=== PATIENT | female | born 1940 | race Native Hawaiian/Other Pacific Islander ===

== ENCOUNTER → 2017-08-21 11:24 | Outpatient (REF) | payer MEDICARE, SELFPAY ==
[2017-08-21 13:24] LABS: Microscopic, Urine URINE MICROSCOPIC (MICROSCOPIC)
[2017-08-21 14:02] LABS: Appearance,Urine CLEAR (Clear); Bilirubin,Urine Negative (Negative); Blood, Urine Negative (Negative); Color,Urine ORANGE (Yellow); Glucose,Urine (UA) TRACE (Negative); Ketones,Urine Negative (Negative); Leukocyte Esterase,Urine Negative (Negative); Nitrate,Urine POSITIVE (Negative); PH,Urine 5.5 (5.0-8.5); Protein,Urine 1+ (Negative); Specific Gravity, Urine <= 1.005 (1.005-1.030)
[2017-08-21 14:30] LABS: Bacteria,Urine Trace /lpf; WBC,Urine Occasional #/hpf (0-3)
== END ==
LOC: LAB 11:24
PROVIDERS: Visit Provider Emergency Medicine
DX: R10.9 Unspecified abdominal pain (principal)
CPT/HCPCS: 81001; 87086

== ENCOUNTER 2018-02-20 20:58 | Observation (INO) ==
[2018-02-20 22:14] LABS: Basophils % 0.1 % (0.1-2.0); Eosinophils # 0.2 K/mm3 (0.0-0.4); Eosinophils % 1.5 % (0.1-12.0); Hematocrit 41.9 % (37.0-47.0); Hemoglobin 13.6 g/dL (12.2-16.2); Lymphocytes # 0.6 K/mm3 (0.7-4.5); Lymphocytes % 5.2 K/mm3 (10-50); Mean Corpuscular HGB Conc 32.5 g/dL (31.8-35.4); Mean Corpuscular Hemoglobin 31.1 pg (27.0-31.2); Mean Corpuscular Volume 95.5 fl (81-99); Mean Platelet Volume 7.7 fl (7.4-10.4); Monocytes # 0.3 K/mm3 (0.1-1.0); Monocytes % 2.9 % (1.7-9.3); Neutrophils # 10.4 K/mm3 (1.8-7.8); Neutrophils % 90.3 % (37.0-80.0); Platelet Count 152 K/mm3 (142-424); Red Blood Count 4.39 M/mm3 (4.20-5.40); Red Cell Distribution Width 13.5 % (11.5-17.5); White Blood Count 11.5 K/mm3 (4.8-10.8)
--- NOTE | 2018-02-20 22:28 | Emergency Department Note ---
ED Disposition Clinical Impression: Gastroenteritis A-fib Qualifiers: Atrial fibrillation type: paroxysmal Qualified Code(s): I48.0 - Paroxysmal atrial fibrillation Disposition: Admitted As Inpatient Condition on Discharge: Good Instructions: DI for Acute Abdomen Referrals: Ganesh Fonseca MD [Primary Care Provider] - - Critical Care Critical Care Time: No Attestation: On 02/20/18, the high probability of a clinically significant, sudden or life threatening deterioration of the following system(s) required my full and direct attention, intervention and personal management. The time I documented below is in addition to time spent performing reported procedures but includes the following listed in this critical care notation. Medical Decision Making - Medical Records Medical records reviewed: Yes: I reviewed the patient's medical records. - Saeed Inquiry Pt receiving controlled substance: No Vital Signs: 02/20/18 21:03 02/20/18 22:05 Temperature 98.1 F Temperature Source Oral Pulse Rate [Right] 98 H 142 H Respiratory Rate 20 20 Blood Pressure [Right Arm] 144/74 H 150/91 H Blood Pressure Mean [Right Arm] 97 110 02 Sat by Pulse Oximetry 96 95 - Lab Data Lab results reviewed: Yes: I reviewed the patient's lab results. Lab Results 02/20/18 21:50: WBC 11.5 H, RBC 4.39, Hgb 13.6, Hct 41.9, MCV 95.5, MCH 31.1, MCHC 32.5, RDW 13.5, Plt Count 152, MPV 7.7, Neut % (Auto) 90.3 H, Lymph % (Auto) 5.2 L, Gem % (Auto) 2.9, Eos % (Auto) 1.5, Baso % (Auto) 0.1, Neut # (Auto) 10.4 H, Lymph # (Auto) 0.6 L, Gem # (Auto) 0.3, Eos # (Auto) 0.2, Baso # (Auto) 0.0 02/20/18 21:50: Sodium 140, Potassium 3.6, Chloride 106, Carbon Dioxide 22, Anion Gap 15.6 H, BUN 21 H, Creatinine 0.64, Estimated Creat Clear 40, Estimated GFR 90, Est GFR ( Amer) 109, Glucose 126 H, Calcium 8.3 L, Total Bilirubin 0.7, AST 13 L, ALT 18, Alkaline Phosphatase 74, Troponin I < 0.02, C- Reactive Protein < 0.2, Total Protein 6.7, Albumin 3.6, Globulin 3.1, Albumin/Globulin Ratio 1.2, Amylase 58 Result diagrams: 02/20/18 21:50 02/20/18 21:50 Orders (Tests/Meds): ED MEDICATIONS Generic Name Dose Route Start Last Admin Trade Name Freq PRN Reason Stop Dose Admin Diltiazem HCl 100 mg/ Sodium 100 mls @ 5 mls/hr 02/20/18 21:51 02/20/18 22:05 Chloride IV 03/22/18 21:50 5 mls/hr .Q20H JUJU Administration Protocol Discontinued Medications Generic Name Dose Route Start Last Admin Trade Name Freq PRN Reason Stop Dose Admin Diltiazem HCl 5 mg 02/20/18 21:35 02/20/18 22:05 Cardizem 25mg/5ml Vial IV 02/20/18 21:36 5 mg BOLUS ONE Administration Sodium Chloride 1,000 mls @ 999 mls/hr 02/20/18 21:15 02/20/18 22:04 Sod Chlor 0.9% 1000ml Bag IV 02/20/18 22:15 999 mls/hr .Q1H1M JUJU Administration Ondansetron HCl 4 mg 02/20/18 21:35 02/20/18 22:05 Zofran 4mg/2ml Vial IV 02/20/18 21:36 4 mg ONCE ONE Administration ORDERS Category Date Time Status CT abdomen pelvis wo con Stat Cat Scan 02/20/18 21:11 Taken XR chest 2V Stat Exams 02/20/18 21:11 Taken Complete Blood Count Auto Diff Stat Lab 02/20/18 21:50 Results Erythrocyte Sedimentation Rate Stat Lab 02/20/18 21:50 Results Lactic Acid Stat Lab 02/20/18 21:50 Received Lipase Stat Lab 02/20/18 21:50 Received T4 (Thyroxine) Stat Lab 02/20/18 21:50 Received Thyroid Stimulating Hormone Stat Lab 02/20/18 21:50 Received Urinalysis and Microscopic Stat Lab 02/20/18 21:11 Ordered Blood Culture Stat Micro 02/20/18 22:21 Ordered Blood Culture Stat Micro 02/20/18 22:21 Ordered Blood Culture Stat Micro 02/20/18 22:21 Ordered ECG Request by /Dick Stat Y 02/20/18 21:11 Ordered - Radiology Data #1 Image(s): Chest Image Reviewed: Yes I reviewed the patient's radiology image Preliminary Findings: Normal/NAD - CT Data CT Scan: Abdomen, Pelvis Time Received: 22:[address] Reviewed: Yes: I have viewed the radiologist's interpretation Preliminary Findings: Abnormal (see report ) - ECG Data Tracing #1 I reviewed this ECG and interpreted as documented below: Arrhythmias present: afib Ischemic changes: non-specific ST-T wave changes Nausea/Vomiting/Diarrhea HPI - General Chief complaint: Abdominal Pain Stated complaint: Possible food poison Time Seen by Provider: 02/20/18 21:50 Mode of Arrival: Wheelchair Source of Information: Patient, Spouse, Medical Record Limitations: No Limitations Description of Symptoms (Recalled from ER Triage Doc. by RN): Pt c/o upper abdominal pain, NVD, and left arm pain. - History of Present Illness HPI Narrative: acute onset this afternoon of n/v and diarrhea w/o blood - no fever - she also has inc hr with no known hx of a fib with no syncope MD complaint: nausea, vomiting, abdominal pain Onset (ago): hour(s) Associated Abdominal Pain: Yes Location of pain: diffuse Severity: moderate Associated symptoms: nausea/vomiting - Related Data Home Medications Medication Instructions Recorded Confirmed Lisinopril [Prinivil 10mg Tablet] 10 mg PO DAILY 02/20/18 02/20/18 Montelukast Sodium [Singulair] 10 mg PO QHS 02/20/18 02/20/18 Pravastatin Sodium 10 mg PO HS 02/20/18 02/20/18 Triamcinolone Acetonide [Kenalog 0 gm TOPICAL NEEDED PRN 02/20/18 02/20/18 0.1% cream 30gm tube] Allergies Allergy/AdvReac Type Severity Reaction Status Date / Time No Known Allergies Allergy Verified 08/21/17 11:10 [facility] History I have reviewed the patient's past medical history: Yes Medical History: Reports:: Hypertension Other Surgeries: Yes: Hysterectomy-Total, Other Amputation: No Fractures: No Comment: BLADDER TUCK - Social History Smoking Status: Current every day smoker Tobacco Type: cigarettes # Packs/Day (cigarettes): 1 Alcohol Intake: never Substance Use Type: denies use Occupational Status: student Housing: house Household Members: spouse - Psychiatric History Expresses thoughts of harming self/others: None Suicide Plan Description: No Plan Family Hx:: Hypertension ROS Obtained: Yes All systems reviewed & no additional complaints - Constitutional Constitutional: Denies fever(s) - Eyes Eyes: Denies change in vision - ENT Ears, Nose, Mouth, and Throat: Denies sore throat - Cardiovascular Cardiovascular: Denies chest pain, Reports palpitations - Respiratory Respiratory: No cough - Gastrointestinal Gastrointestingal: Reports: abdominal pain, diarrhea, nausea, vomiting. Denies: bright red blood in stools - Genitourinary Female Genitourinary: Denies hematuria - Musculoskeletal Musculoskeletal: Denies joint pain, Denies neck pain - Integumentary/Breasts Skin/Breast: Denies rash - Neurologic Neurologic: Denies headache(s) Physical Exam - General General appearance: alert, in no apparent distress - Head Head exam: normocephalic - Eye Eye exam: Present: PERRL, EOMI - ENT ENT exam: Present: mucous membranes moist - Neck Neck exam: Present: trachea midline - Respiratory Respiratory exam: Present: normal lung sounds bilaterally. Absent: respiratory distress - Cardiovascular Cardiovascular exam: Present: tachycardia, irregular rhythm - Abdominal Exam Abdominal exam: Present: soft. Absent: tenderness - Extremities Exam Extremities exam: Absent: calf tenderness - Neurological Exam Neurological exam: Present: alert, oriented X3, CN II-XII intact - Psychiatric Psychiatric exam: Present: normal affect - Skin Skin exam: Absent: rash
[2018-02-20 22:29] LABS: Alanine Aminotransferase 18 U/L (12-78); Albumin Level 3.6 gm/dL (3.4-5.0); Albumin/Globulin Ratio 1.2 (1.1-1.8); Alkaline Phosphatase 74 U/L (46-116); Amylase 58 U/L (25-125); Anion Gap 15.6 mEq/L (5-15); Aspartate Amino Transferase 13 U/L (15-37); Bilirubin,Total 0.7 mg/dL (0.2-1.0); Blood Urea Nitrogen 21 mg/dL (7-18); Calcium 8.3 mg/dL (8.5-10.1); Carbon Dioxide 22 mmol/L (21.0-32.0); Chloride 106 mmol/L (98-107); Globulin 3.1 gm/dl (1.3-3.2); Glucose 126 mg/dL (74-106); Potassium 3.6 mmoL/L (3.5-5.1); Sodium 140 mmol/L (136-145); Total Protein,Serum 6.7 gm/dL (6.4-8.2)
[2018-02-20 22:36] LABS: C-Reactive Protein < 0.2 mg/L (0.0-0.9)
[2018-02-20 22:48] LABS: Anisocytosis 1+; Lymphocytes % 5 % (10-50); Neutrophils % 95 % (42-76); Total Cells Counted 100
[2018-02-20 22:49] LABS: Stomatocytes 1+
[2018-02-20 23:01] LABS: Erythrocyte Sedimentation Rate 15 mm/hr (0-30)
[2018-02-20 23:27] LABS: T4 (Thyroxine) 8.2 ug/dl (4.7-13.3); Thyroid Stimulating Hormone 0.63 uIU/ml (0.358-3.740)
[2018-02-21 05:17] LABS: Basophils % 0.2 % (0.1-2.0); Eosinophils % 0.7 % (0.1-12.0); Hematocrit 36.7 % (37.0-47.0); Lymphocytes # 0.9 K/mm3 (0.7-4.5); Lymphocytes % 14.9 K/mm3 (10-50); Mean Corpuscular HGB Conc 32.2 g/dL (31.8-35.4); Mean Corpuscular Hemoglobin 30.7 pg (27.0-31.2); Mean Corpuscular Volume 95.2 fl (81-99); Mean Platelet Volume 8.1 fl (7.4-10.4); Monocytes # 0.3 K/mm3 (0.1-1.0); Monocytes % 4.6 % (1.7-9.3); Neutrophils # 4.8 K/mm3 (1.8-7.8); Neutrophils % 79.5 % (37.0-80.0); Platelet Count 173 K/mm3 (142-424); Red Blood Count 3.86 M/mm3 (4.20-5.40); Red Cell Distribution Width 13.6 % (11.5-17.5)
[2018-02-21 05:22] LABS: Anion Gap 12.6 mEq/L (5-15); Calcium 7.9 mg/dL (8.5-10.1); Potassium 3.6 mmoL/L (3.5-5.1)
--- NOTE | 2018-02-21 09:31 | Consult Report ---
History of Present Illness Consult date: 02/21/18 Requesting physician: Ganesh Fonseca Consult reason: atrial fibrillation Chief complaint: Nausea and vomiting Additional Medical History:: 1. New onset of Paroxysmal Atrial Fibrillation (02/21/18) a. Rapid ventricular response of 155-160bpm. b. Converted over to Sinus rhythm with Diltiazem. 2. Gastroenteritis (02/21/18) a. Possible food poisoning b. Nausea and vomiting for 12 hours prior to admission 3. Essential hypertension. a. Well controlled on lisinopril 4. Hyperlipidemia a. No recent LDL on file. b. Currently on pravastatin daily and managed by PCP. 5. Tobacco abuse a. Smokes 1 pack/day over the past 30 years. 6. No significant family history of coronary artery disease History of present illness: 77-year-old English female admitted to [facility] for abdominal pain, vomiting and diarrhea for the past 12 hours. Patient stated after eating muscles at a restaurant, she started developing mid to lower abdominal pain accompanied with nausea. States throughout the day her vomiting and abdominal pain became worse, so she presented in the emergency room. While being evaluated in the emergency room, patient was noted to be an atrial fibrillation with rapid ventricular response with premature ventricular complexes with a heart rate of 155 and 160 bpm. This was a new onset of atrial fibrillation. Patient denied chest pain or shortness of breath with this episode of atrial fib. Patient was placed on diltiazem drip due to the atrial fibrillation with rapid ventricular response. After being on the diltiazem drip, patient converted over into a sinus rhythm with a heart rate of 70-80 bpm. Patient was then admitted to second floor for observation and cardiac consult. Patient remains in sinus rhythm with a heart rate of 63bpm. Denies chest pain, shortness of breath or palpitations. Patient denies any history of coronary artery disease, atrial fibrillation or any other cardiac issues. Patient did state that she has history of hypertension and hyperlipidemia. Patient admits to smoking 1 pack/day and has for over 30 years. Patient denies any significant family history of cardiac disease. States father of carotid stenosis in his early 90s and her mother from appendicitis at a young age. Patient states she is unable to take aspirin due to issues with her stomach. Initial lab work in the emergency room revealed, BUN 21 and creatinine of 0.64. Serial cardiac enzymes were performed with the first troponin being 0.02, 0.06 then 3rd troponin being 0.16. Chest x-ray revealed: FINDINGS: Mild cardiomegaly without failure. Chronic changes are present in the lower lobes. No lobar consolidation or collapse. Degenerative change thoracic spine. Nodularity noted in the left hilum probably related to overlapping vessel slightly more prominent from previous exams. Continued follow-up recommended to confirm stability. IMPRESSION: Cardiomegaly with chronic change Minimal nodularity left hilum which may be due to overlying vessel. Recommend follow-up radiograph in 4-8 weeks to confirm short-term stability Patient also had an abdominal CT due to a abdominal pain: FINDINGS: Lung base images show bibasilar atelectatic and/or fibrotic change. There is mild cardiomegaly. The liver, gallbladder, spleen, adrenal glands, pancreas, and kidneys show no acute finding. No evidence of intestinal obstruction, free air, or diverticulitis. There are fluid-filled loops of small and large bowel nonspecific without distention. There is diverticulosis of the sigmoid colon. 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 No aortic aneurysm or leak apparent. No pelvic mass or abnormal fluid collection or focal inflammatory change of the pelvis. There has been prior hysterectomy. No acute bony findings. IMPRESSION: No acute abdominal or pelvic findings. Echocardiogram was performed. Preliminary report reveals: Moderate MR and EF greater than 55%. Upon this evaluation, patient is alert and oriented appropriately x3. Denies chest pain, shortness of breath, palpitations or nausea vomiting. Patient states she is feeling much better. Vital signs are stable. monitor car operator reveals sinus rhythm with a heart rate of 63 bpm. Patient is very anxious to get home. States she would rather have any testing on an outpatient basis because she just wants to go home. Discussed with patient to have further cardiac testing performed on outpatient basis. Patient was agreeable to have GXT Myoview and follow-up with cardiac clinic within 1 week. This case was discussed with Dr. Villela and Dr. Fonseca. [facility] History Medical History: Reports:: Hyperlipidemia, Hypertension Other Surgeries: Yes: Hysterectomy-Total, Other Amputation: No Fractures: No - *Social History Smoking Status: Current every day smoker Tobacco Type: cigarettes # Packs/Day (cigarettes): 1 Alcohol Intake: never Substance Use Type: denies use Occupational Status: student Housing: house Household Members: spouse - Psychiatric History Expresses thoughts of harming self/others: None Suicide Plan Description: No Plan *Family Hx:: Hypertension Meds Home Medications Medication Instructions Recorded Confirmed Type Lisinopril [Prinivil 10mg Tablet] 10 mg PO DAILY 02/20/18 02/20/18 History Pravastatin Sodium 10 mg PO HS 02/20/18 02/20/18 History Triamcinolone Acetonide [Kenalog 1 gm TOPICAL NEEDED PRN 02/20/18 02/21/18 History 0.1% cream 30gm tube] Allergies Allergy/AdvReac Type Severity Reaction Status Date / Time No Known Allergies Allergy Verified 08/21/17 11:10 Review of Systems - Review of Systems Review of systems:: pertinent systems reviewed and negative unless documented below - Constitutional Reports fatigue - *Cardiovascular Reports irregular heart rhythm, Denies chest pain, Denies chest pain at rest, Denies chest pain with activity, Denies leg pain with activity, Denies shortness of breath, Denies shortness of breath with activity, Denies generalized swelling - *Respiratory Denies cough, Denies shortness of breath, Denies shortness of breath with activity, Denies wheezing - *Gastrointestinal Reports abdominal pain, Reports nausea, Reports vomiting - *Musculoskeletal Denies abnormal walking, Denies muscle weakness - Integumentary/Breasts Denies acne, Denies hair loss, Denies bleeding lesions - *Neurologic Denies dizziness, Denies headache(s), Denies dizziness, Denies weakness Exam Vital signs and Labs for Last 24 Hours: Temp Pulse Resp BP Pulse Ox 98.5 F 63 18 96/46 L 93 L 02/21/18 07:34 02/21/18 07:34 02/21/18 07:34 02/21/18 07:34 02/21/18 07:34 Laboratory Results - last 24 hr 02/20/18 21:50: WBC 11.5 H, RBC 4.39, Hgb 13.6, Hct 41.9, MCV 95.5, MCH 31.1, MCHC 32.5, RDW 13.5, Plt Count 152, MPV 7.7, Neut % (Auto) 90.3 H, Lymph % (Auto) 5.2 L, [place] % (Auto) 2.9, Eos % (Auto) 1.5, Baso % (Auto) 0.1, Neut # (Auto) 10.4 H, Lymph # (Auto) 0.6 L, [place] # (Auto) 0.3, Eos # (Auto) 0.2, Baso # (Auto) 0.0, Total Counted 100, Neutrophils % (Manual) 95 H, Lymphocytes % (Manual) 5 L, Platelet Estimate Normal, Anisocytosis 1+, Stomatocytes 1+, ESR 15 02/20/18 21:50: Sodium 140, Potassium 3.6, Chloride 106, Carbon Dioxide 22, Anion Gap 15.6 H, BUN 21 H, Creatinine 0.64, Estimated Creat Clear 40, Estimated GFR 90, Est GFR ( Amer) 109, Glucose 126 H, Calcium 8.3 L, Total Bilirubin 0.7, AST 13 L, ALT 18, Alkaline Phosphatase 74, Troponin I < 0.02, C- Reactive Protein < 0.2, Total Protein 6.7, Albumin 3.6, Globulin 3.1, Albumin/Globulin Ratio 1.2, Amylase 58 02/20/18 21:50: Lactate 1.1 02/20/18 21:50: Lipase 70 L, TSH 0.63, Thyroxine (T4) 8.2 02/21/18 01:42: Troponin I 0.06 02/21/18 05:00: Troponin I 0.16 H 02/21/18 05:00: WBC 6.0 D, RBC 3.86 L, Hgb 12.0 L D, Hct 36.7 L, MCV 95.2, MCH 30.7, MCHC 32.2, RDW 13.6, Plt Count 173, MPV 8.1, Neut % (Auto) 79.5, Lymph % (Auto) 14.9, [place] % (Auto) 4.6, Eos % (Auto) 0.7, Baso % (Auto) 0.2, Neut # (Auto) 4.8, Lymph # (Auto) 0.9, [place] # (Auto) 0.3, Eos # (Auto) 0.0, Baso # (Au to) 0.0 02/21/18 05:00: Sodium 141, Potassium 3.6, Chloride 108 H, Carbon Dioxide 24, Anion Gap 12.6, BUN 21 H, Creatinine 0.61, Estimated Creat Clear 40, Estimated GFR 95, Est GFR ( Amer) 115, Glucose 102, Calcium 7.9 L I & O for Last 24 hours: Intake & Output 02/18/18 02/19/18 02/20/18 02/21/18 23:59 23:59 23:59 23:59 Intake Total 50 50 522 / 522 Balance 522 / 522 Weight 120 lb 8 oz - Constitutional no acute distress, average body habitus - *Routine HEENT Exam Head: Present: normocephalic. Absent: Medrano's sign, facial swelling Eye: Present: EOMI ENT: Present: mucous membranes moist - *Routine Neck Exam Present: supple, full ROM, normal carotid upstroke, trachea midline. Absent: JVD, carotid bruit, lymphadenopathy - Routine Chest/Breast/Axilla Exam Chest wall: Absent: tenderness, mass - *Routine Respiratory Exam Present: accessory muscle use, CTA bilaterally. Absent: wheezes, distant breath sounds - *Routine Cardiovascular Exam Present: RRR, Normal S1, Normal S2. Absent: murmur, gallop, rubs, click, bradycardia, tachycardia, JVD - *Routine Abdominal Exam Present: soft, normoactive bowel sounds. Absent: tenderness, distended, rebound, bruit - *Routine Extremities Exam Present: full ROM, pulses intact, normal capillary refill. Absent: cyanosis, clubbing, edema - Routine Back/Spine/Pelvis Exam Back/Spine: Present: full ROM. Absent: CVA tenderness - *Routine Skin Exam Present: intact, warm, normal turgor. Absent: cyanosis, erythema, dry, lesions - *Routine Neurological Exam Present: alert, oriented X3, CN II-XII intact, moving all extremities, normal tone, normal speech. Absent: tremors Assessment and Plan (1) A-fib Current visit: Yes Status: Acute Qualifiers: Atrial fibrillation type: paroxysmal Qualified Code(s): I48.0 - Paroxysmal atrial fibrillation Category: Medical Code(s): I48.91 - Unspecified atrial fibrillation (2) Gastroenteritis Current visit: Yes Status: Acute Category: Medical Code(s): K52.9 - Noninfective gastroenteritis and colitis, unspecified (3) Essential hypertension Current visit: No Status: Chronic Category: Medical Code(s): I10 - Essential (primary) hypertension (4) Hyperlipidemia Current visit: Yes Status: Acute Category: Medical Code(s): E78.5 - Hyperlipidemia, unspecified (5) Tobacco abuse Current visit: Yes Status: Acute Category: Medical Code(s): Z72.0 - Tobacco use - Assessment and plan all Dx Assessment and Plan for all problems:: Plan: 1. Obtain echocardiogram to assess LV function and valve status. 2. Obtain Lexiscan Myoview on outpatient basis due to new onset of atrial fibrillation and tobacco abuse. 3. Tobacco cessation advised and recommended. 4. Continue current home medications. 5. Recommend aspirin 81 mg daily if patient can tolerate. 6. Will defer any medication changes until after Lexiscan Myoview performed. 7. Follow-up in cardiac clinic in 1 week for further cardiac evaluation.
--- NOTE | 2018-02-22 13:20 | H&P/Discharge Summary ---
General - General Admission date:: 02/20/18 Discharge date: 02/21/18 *Admission Date: 02/20/18 *Chief complaint: heart arrthymia *History of present illness: this pt had upper ugi with vomiting and loose stool but no fever or vomiting - pt also presents with fast hr with a fib - she has had fast hr in past but no doc a fib- no chest pain or syncope and no cva sx - pt placed on cardizem drip and admitted [facility] History I have reviewed the patient's past medical history: Yes Medical History: Reports:: Hyperlipidemia, Hypertension Other Surgeries: Yes: Hysterectomy-Total, Other Amputation: No Fractures: No - *Social History Smoking Status: Current every day smoker Tobacco Type: cigarettes # Packs/Day (cigarettes): 1 Alcohol Intake: never Substance Use Type: denies use Occupational Status: student Housing: house Household Members: spouse - Psychiatric History Expresses thoughts of harming self/others: None Suicide Plan Description: No Plan *Family Hx:: Hypertension Review of Systems - Review of Systems Review of systems:: pertinent systems reviewed and negative unless documented below - Constitutional Denies fever(s) - Eyes Denies discharge - ENT Denies neck pain - *Cardiovascular Reports irregular heart rhythm, Reports rapid, pounding, or irregular heartbeat, Reports fast heart rate, Denies chest pain at rest - *Respiratory Denies cough - *Gastrointestinal Denies abdominal pain - *Genitourinary Denies blood in urine - *Musculoskeletal Denies joint pain - Integumentary/Breasts Denies rash - *Neurologic Denies abnormal walking, Denies dizziness, Denies headache(s), Denies dizziness, Denies weakness - Psychiatric Reports anxiety Exam Vital signs and Labs for Last 24 Hours: Temp Pulse Resp BP Pulse Ox 98.8 F 73 18 154/87 H 94 L 02/21/18 11:37 02/21/18 11:37 02/21/18 11:37 02/21/18 11:37 02/21/18 11:37 Laboratory Results - last 24 hr 02/20/18 21:50: WBC 11.5 H, RBC 4.39, Hgb 13.6, Hct 41.9, MCV 95.5, MCH 31.1, MCHC 32.5, RDW 13.5, Plt Count 152, MPV 7.7, Neut % (Auto) 90.3 H, Lymph % (Auto) 5.2 L, [place]own[place] % (Auto) 2.9, Eos % (Auto) 1.5, Baso % (Auto) 0.1, Neut # (Auto) 10.4 H, Lymph # (Auto) 0.6 L, Lown[place] # (Auto) 0.3, Eos # (Auto) 0.2, Baso # (Auto) 0.0, Total Counted 100, Neutrophils % (Manual) 95 H, Lymphocytes % (Manual) 5 L, Platelet Estimate Normal, Anisocytosis 1+, Stomatocytes 1+, ESR 15 02/20/18 21:50: Sodium 140, Potassium 3.6, Chloride 106, Carbon Dioxide 22, Anion Gap 15.6 H, BUN 21 H, Creatinine 0.64, Estimated Creat Clear 40, Estimated GFR 90, Est GFR ( Amer) 109, Glucose 126 H, Calcium 8.3 L, Total Bilirubin 0.7, AST 13 L, ALT 18, Alkaline Phosphatase 74, Troponin I < 0.02, C- Reactive Protein < 0.2, Total Protein 6.7, Albumin 3.6, Globulin 3.1, Albumin/Globulin Ratio 1.2, Amylase 58 02/20/18 21:50: Lactate 1.1 02/20/18 21:50: Lipase 70 L, TSH 0.63, Thyroxine (T4) 8.2 02/21/18 01:42: Troponin I 0.06 02/21/18 05:00: Troponin I 0.16 H 02/21/18 05:00: WBC 6.0 D, RBC 3.86 L, Hgb 12.0 L D, Hct 36.7 L, MCV 95.2, MCH 30.7, MCHC 32.2, RDW 13.6, Plt Count 173, MPV 8.1, Neut % (Auto) 79.5, Lymph % (Auto) 14.9, Lowndes % (Auto) 4.6, Eos % (Auto) 0.7, Baso % (Auto) 0.2, Neut # (Auto) 4.8, Lymph # (Auto) 0.9, Lowndes # (Auto) 0.3, Eos # (Auto) 0.0, Baso # (Auto) 0.0 02/21/18 05:00: Sodium 141, Potassium 3.6, Chloride 108 H, Carbon Dioxide 24, Anion Gap 12.6, BUN 21 H, Creatinine 0.61, Estimated Creat Clear 40, Estimated GFR 95, Est GFR ( Amer) 115, Glucose 102, Calcium 7.9 L I & O for Last 24 hours: Intake & Output 02/19/18 02/20/18 02/21/18 02/22/18 11:59 11:59 11:59 11:59 Intake Total 572 / 572 Balance 572 / 572 Weight 120 lb 8 oz - Constitutional no acute distress - *Routine HEENT Exam Head: Present: normocephalic, atraumatic Eye: Present: EOMI, PERRL ENT: Present: mucous membranes dry - *Routine Neck Exam Present: supple. Absent: JVD, carotid bruit - *Routine Respiratory Exam Present: CTA bilaterally - *Routine Cardiovascular Exam Present: RRR, murmur, S4 - *Routine Abdominal Exam Present: soft - *Routine Extremities Exam Absent: calf tenderness - *Routine Skin Exam Present: intact - *Routine Neurological Exam Present: alert, oriented X3, CN II-XII intact - Routine Psychiatric Exam Present: normal affect Hospital Course Hospital Course: pt with conversion and remained stable and no chest pain and gi improved - she was seen by card -7-year-old [place] female admitted to [facility] for abdominal pain, vomiting and diarrhea for the past 12 hours. Patient stated after eating muscles at a restaurant, she started developing mid to lower abdominal pain accompanied with nausea. States throughout the day her vomiting and abdominal pain became worse, so she presented in the emergency room. While being evaluated in the emergency room, patient was noted to be an atrial fibrillation with rapid ventricular response with premature ventricular complexes with a heart rate of 155 and 160 bpm. This was a new onset of atrial fibrillation. Patient denied chest pain or shortness of breath with this episode of atrial fib. Patient was placed on diltiazem drip due to the atrial fibrillation with rapid ventricular response. After being on the diltiazem drip, patient converted over into a sinus rhythm with a heart rate of 70-80 bpm. Patient was then admitted to second floor for observation and cardiac consult. Patient remains in sinus rhythm with a heart rate of 63bpm. Denies chest pain, shortness of breath or palpitations. Patient denies any history of coronary artery disease, atrial fibrillation or any other cardiac issues. Patient did state that she has history of hypertension and hyperlipidemia. Patient admits to smoking 1 pack/day and has for over 30 years. Patient denies any significant family history of cardiac disease. States father of carotid stenosis in his early 90s and her mother from appendiciti onset of Paroxysmal Atrial Fibrillation (02/21/18) a. Rapid ventricular response of 155-160bpm. b. Converted over to Sinus rhythm with Diltiazem. 2. Gastroenteritis (02/21/18) a. Possible food poisoning b. Nausea and vomiting for 12 hours prior to admission 3. Essential hypertension. a. Well controlled on lisinopril 4. Hyperlipidemia a. No recent LDL on file. b. Currently on pravastatin daily and managed by PCP. 5. Tobacco abuse a. Smokes 1 pack/day over the past 30 years. 6. No significant family history of coronary artery diseass at a young age. Patient states she is unable to take aspirin due to issues with her stomach. will do gxt as op and do holter and follow up in clinic and office Obtain echocardiogram to assess LV function and valve status. 2. Obtain Lexiscan Myoview on outpatient basis due to new onset of atrial fibrillation and tobacco abuse. 3. Tobacco cessation advised and recommended. 4. Continue current home medications. 5. Recommend aspirin 81 mg daily if patient can tolerate. 6. Will defer any medication changes until after Lexiscan Myoview performed. 7. Follow-up in cardiac clinic in 1 week for further cardiac evaluation. Results Labs on day of discharge: Labs from last 24 hours 02/21/18 02/21/18 02/21/18 05:00 05:00 05:00 WBC 6.0 D RBC 3.86 L Hgb 12.0 L D Hct 36.7 L MCV 95.2 MCH 30.7 MCHC 32.2 RDW 13.6 Plt Count 173 MPV 8.1 Neut % (Auto) 79.5 Lymph % (Auto) 14.9 Lowndes % (Auto) 4.6 Eos % (Auto) 0.7 Baso % (Auto) 0.2 Neut # (Auto) 4.8 Lymph # (Auto) 0.9 Lowndes # (Auto) 0.3 Eos # (Auto) 0.0 Baso # (Auto) 0.0 Total Counted Neutrophils % (Manual) Lymphocytes % (Manual) Platelet Estimate Anisocytosis Stomatocytes ESR Sodium 141 Potassium 3.6 Chloride 108 H Carbon Dioxide 24 Anion Gap 12.6 BUN 21 H Creatinine 0.61 Estimated Creat Clear 40 Estimated GFR 95 Est GFR ( Amer) 115 Glucose 102 Lactate Calcium 7.9 L Total Bilirubin AST ALT Alkaline Phosphatase Troponin I 0.16 H C-Reactive Protein Total Protein Albumin Globulin Albumin/Globulin Ratio Amylase Lipase TSH Thyroxine (T4) 02/21/18 02/20/18 02/20/18 01:42 21:50 21:50 WBC RBC Hgb Hct MCV MCH MCHC RDW Plt Count MPV Neut % (Auto) Lymph % (Auto) Lowndes % (Auto) Eos % (Auto) Baso % (Auto) Neut # (Auto) Lymph # (Auto) Lown[place] # (Auto) Eos # (Auto) Baso # (Auto) Total Counted Neutrophils % (Manual) Lymphocytes % (Manual) Platelet Estimate Anisocytosis Stomatocytes ESR Sodium Potassium Chloride Carbon Dioxide Anion Gap BUN Creatinine Estimated Creat Clear Estimated GFR Est GFR ( Amer) Glucose Lactate 1.1 Calcium Total Bilirubin AST ALT Alkaline Phosphatase Troponin I 0.06 C-Reactive Protein Total Protein Albumin Globulin Albumin/Globulin Ratio Amylase Lipase 70 L TSH 0.63 Thyroxine (T4) 8.2 02/20/18 02/20/18 21:50 21:50 WBC 11.5 H RBC 4.39 Hgb 13.6 Hct 41.9 MCV 95.5 MCH 31.1 MCHC 32.5 RDW 13.5 Plt Count 152 MPV 7.7 Neut % (Auto) 90.3 H Lymph % (Auto) 5.2 L Lown[place] % (Auto) 2.9 Eos % (Auto) 1.5 Baso % (Auto) 0.1 Neut # (Auto) 10.4 H Lymph # (Auto) 0.6 L [place] # (Auto) 0.3 Eos # (Auto) 0.2 Baso # (Auto) 0.0 Total Counted 100 Neutrophils % (Manual) 95 H Lymphocytes % (Manual) 5 L Platelet Estimate Normal Anisocytosis 1+ Stomatocytes 1+ ESR 15 Sodium 140 Potassium 3.6 Chloride 106 Carbon Dioxide 22 Anion Gap 15.6 H BUN 21 H Creatinine 0.64 Estimated Creat Clear 40 Estimated GFR 90 Est GFR ( Amer) 109 Glucose 126 H Lactate Calcium 8.3 L Total Bilirubin 0.7 AST 13 L ALT 18 Alkaline Phosphatase 74 Troponin I < 0.02 C-Reactive Protein < 0.2 Total Protein 6.7 Albumin 3.6 Globulin 3.1 Albumin/Globulin Ratio 1.2 Amylase 58 Lipase TSH Thyroxine (T4) DS: Diagnosis - Discharge Diagnosis (1) A-fib Status: Acute (2) Gastroenteritis Status: Acute (3) Essential hypertension Status: Chronic (4) Hyperlipidemia Status: Acute (5) Tobacco abuse Status: Acute (6) Elevated troponin Status: Acute Discharge Medications - Medications for Discharge Home Medication List at Discharge: Continue Triamcinolone Acetonide [Kenalog 0.1% cream 30gm tube] 1 gm TOPICAL NEEDED PRN PRN Reason: Allergies Pravastatin Sodium 10 mg PO HS Lisinopril [Prinivil 10mg Tablet] 10 mg PO DAILY
--- NOTE | 2018-02-22 15:23 | Cardiology Report ---
PROCEDURE: 2-D M-mode and color Doppler study INDICATIONS FOR THE TEST: Chest pain COPD Heart Murmur Tobacco Smoking+ Palpitations Fatigue Syncope Edema Hypertension+Diabetes Mellitus Rheumatic Fever SOB ISLAS Obesity Hyperlipidemia+ Family History HD Additional History A FIB PATIENT INFORMATION HEIGHT: 61 WEIGHT:120 GENDER: Female B/P:150/91 2-D/M-MODE INTERPRETATION: 2-D MEASUREMENTS OBSERVED VALUES IN CMS Right Ventricular Dimension (RVDd) 2.6 Interventricular Septum (Thickness)(IVsd) 1.4 Left Ventricular Internal Dimensions(LVIDd) 3.9 Left Ventricular Posterior Wall (Thickness)(LVPWd) 0.9 Aortic Root 3.3 Aortic Cusp Separation 2.1 Left Atrial Dimensions (LAD) 3.6 2D 1. Left atrium is mildly enlarged, left ventricle is normal size, mild concentric left ventricular hypertrophy seen, visually estimated ejection fraction 55% with no regional wall motion abnormality. 2. The right atrium and ventricle are normal size and contractility. 3. The aortic valve is minimally thickened and calcified. 4. The mitral and tricuspid valve leaflets are minimally thickened. 5. The pulmonic valve is poorly visualized. 6. No significant pericardial effusion noted. DOPPLER INTERROGATION: Doppler interrogation of the aortic, mitral and tricuspid valvular presence of mild mitral and tricuspid regurgitation, tricuspid regurgitation jet velocity is inadequate for calculation of the right ventricular systolic pressure, grade 1 diastolic dysfunction seen with tissue Doppler evidence of raised left atrial pressure. CONCLUSION: 1. Mildly enlarged left atrium, normal left ventricular size, mild concentric left ventricular hypertrophy, visually estimated ejection fraction 55% with no regional wall motion abnormality, grade 1 diastolic dysfunction seen with tissue Doppler evidence of raised left atrial pressure. 2. Mild mitral and tricuspid regurgitation 3. No significant pericardial effusion noted.
== END 2018-02-21 14:20 | disposition home or self-care (01) ==
LOC: ER 20:58 → 2ND 22:46 → INTOOBSV 23:20 → 2ND 23:25
PROVIDERS: ADMIT Emergency Medicine; ATTEND Emergency Medicine

== ENCOUNTER → 2018-02-23 10:39 | Outpatient (CLI) | payer MEDICARE, BC, SELFPAY ==
--- NOTE | 2018-02-23 10:41 | NM_ITS ---
History and Indications: Hypertension, hyperlipidemia. Tobacco use Procedure: Patient received a 0.4 mg of intravenous Lexiscan, resting heart rate was 63 beats prominent, resting blood pressure 143/49, with Lexiscan maximum heart rate achieved was 100 bpm which is less than 85% of the maximum predicted heart rate and a blood pressure was 163/75. With Lexiscan patient complained of shortness of breath and headache Electrocardiogram: Resting electrocardiogram showed sinus rhythm nonspecific ST-T changes, with Lexiscan occasional premature ventricular complex seen, less than 1.[address] segment depression noted from the baseline EKG. The EKG portion of the Lexiscan Myoview is nondiagnostic. Cardiac stress and resting SPECT images: Cardiac stress and rest images were obtained using technetium 99 Myoview 31.6 mCi stress and 10.4 mCi at rest. Gated SPECT further analysis of segmental wall motion and calculation of ejection fraction also done. Cardiac stress and rest SPECT images show uniform myocardial activity without segmental perfusion abnormality, computer derived ejection fraction is over 65% with no wall motion abnormality, right ventricle is normal size and contractility. Conclusion: 1. The EKG portion of the Lexiscan Myoview is nondiagnostic. 2. No scintigraphic evidence of reversible ischemia seen, computer derived ejection fraction is over 65% with no regional wall motion abnormality, right ventricle is normal size and contractility. 3. Normal Lexiscan Myoview study.
--- NOTE | 2018-02-23 13:06 | HMH.ITSHM ---
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 []pravastatin lisinopril triamcinolone
== END ==
PROVIDERS: Family Provider Emergency Medicine; PCP Emergency Medicine; Visit Provider Internal Medicine
DX: I48.0 Paroxysmal atrial fibrillation (principal); R07.89 Other chest pain
CPT/HCPCS: 78452; 93017; A9502; J2785

== ENCOUNTER → 2018-03-01 12:02 | Outpatient (CLI) | payer MEDICARE, BC, SELFPAY ==
--- NOTE | 2018-03-01 12:07 | CT_ITS ---
CT chest wo con HISTORY: Chest pain, smoker ITS.REASON: tobacco use ORDERING PHYSICIAN: Tanner Frye MD PATIENT AGE: 77 years COMPARISON: None Technique: Axial images obtained with sagittal and coronal reformats. All CT scans at the facility use one or more dose reduction, viz: automated exposure control, ma/kV adjustment per patient size (including targeted exams where dose is matched to indication, i.e. head), or iterative reconstruction technique. FINDINGS: Both left and right lobes of the thyroid gland are enlarged left slightly greater than right. There are some coarse calcifications noted. Atheromatous calcification involves the aorta and proximal aspect of the great vessels. No mediastinal or hilar mass is evident. Coronary artery calcifications are present. No pericardial effusion. There are centrilobular emphysematous changes as well as hyperinflation and bronchial thickening consistent with obstructive chronic bronchitis. There are scattered fibrotic changes. There is mild bronchiectasis in the right middle lobe. There is a 2 mm noncalcified nodule in the left apex. A faint 4 mm nodule is present in the left lower lobe. An irregular subpleural density is present in the left lower lobe posterior laterally at 4 mm. No central obstructing lesions are evident. A 4 mm noncalcified nodule in the right apex. A 3 mm noncalcified nodule present in the right lower lobe. Mild fibrotic changes are present in the lung bases. There is mild cardiomegaly. Degenerative changes are present in the thoracic spine. No acute finding in the upper abdominal images. IMPRESSION: 1. Obstructive chronic bronchitis with centrilobular emphysema. Mild bronchiectasis in the right middle lobe 2. There are a few nonspecific nodular opacities which are 4 mm or less and are of low suspicion for malignancy. Recommend 12 month follow-up. 3. Mild cardiomegaly with coronary artery calcification noted. 4. Goiter
== END ==
PROVIDERS: Family Provider Emergency Medicine; PCP Emergency Medicine; Visit Provider Internal Medicine Cardiovascular Disease
DX: E78.5 Hyperlipidemia, unspecified (principal); I10 Essential (primary) hypertension; I48.0 Paroxysmal atrial fibrillation; R07.89 Other chest pain; Z72.0 Tobacco use
CPT/HCPCS: 71250

== ENCOUNTER → 2018-03-16 10:28 | Outpatient (CLI) | payer MEDICARE, BC, SELFPAY ==
[2018-03-16 13:06] LABS: Anion Gap 11.5 mEq/L (5-15); Blood Urea Nitrogen 23 mg/dL (7-18); Calcium 8.8 mg/dL (8.5-10.1); Carbon Dioxide 32 mmol/L (21.0-32.0); Chloride 103 mmol/L (98-107); Creatinine,Serum 0.65 mg/dL (0.55-1.02); Estimated Glomerular Filt Rate 88 ml/min (>60); GFR (African American) 107 ML/MIN (>60); Glucose 96 mg/dL (74-106); Potassium 3.5 mmoL/L (3.5-5.1); Sodium 143 mmol/L (136-145)
== END ==
PROVIDERS: Visit Provider Internal Medicine Cardiovascular Disease
DX: E78.5 Hyperlipidemia, unspecified (principal); I10 Essential (primary) hypertension; I48.91 Unspecified atrial fibrillation; J30.9 Allergic rhinitis, unspecified; R21 Rash and other nonspecific skin eruption; Z72.0 Tobacco use
CPT/HCPCS: 36415; 80048

== ENCOUNTER → 2019-03-04 11:42 | Outpatient (CLI) | payer MEDICARE, BC, SELFPAY | PROVIDERS: PCP Emergency Medicine; Visit Provider Nurse Practitioner Family | DX: I48.91 Unspecified atrial fibrillation (principal) | CPT/HCPCS: 93270 ==

== ENCOUNTER → 2019-06-11 14:14 | Outpatient (POV) | payer MEDICARE, BC, SELFPAY | PROVIDERS: Visit Provider Dermatology | DX: Z00.00 Encounter for general adult medical examination without abnormal findings (principal) ==

== ENCOUNTER → 2020-08-19 14:22 | Outpatient (CLI) | payer MEDICARE, BC, SELFPAY | PROVIDERS: Visit Provider Emergency Medicine | DX: R82.90 Unspecified abnormal findings in urine (principal) | CPT/HCPCS: 87086; 87088; 87186 ==

== ENCOUNTER → 2020-09-07 14:28 | Outpatient (CLI) | payer MEDICARE, BC, SELFPAY | PROVIDERS: Visit Provider Emergency Medicine | DX: N39.0 Urinary tract infection, site not specified (principal); Z79.899 Other long term (current) drug therapy | CPT/HCPCS: 87086 ==

== ENCOUNTER → 2020-10-07 10:57 | Outpatient (CLI) | payer MEDICARE, BC, SELFPAY | PROVIDERS: Visit Provider Internal Medicine Gastroenterology | DX: Z01.812 Encounter for preprocedural laboratory examination (principal); Z20.822 Contact with and (suspected) exposure to COVID-19; Z12.11 Encounter for screening for malignant neoplasm of colon | CPT/HCPCS: U0003 ==

== ENCOUNTER 2020-10-09 09:33 | Day surgery (SDC) | payer MEDICARE, BC, SELFPAY ==
[2020-10-05 10:57] VITALS: BMI 22.6
[2020-10-09] VITALS (7 sets, daily range): BP systolic 71–164; BP diastolic 38–90; PULSE 63–85; RESP 18; TEMP 36.7; O2SAT 95–97
--- NOTE | 2020-10-09 10:47 | P.PN_ITS ---
[facility] Anesthesia Checklist - Structural Data Admitted From: Home Planned Operative Procedure/s: colonoscopy Consent for Planned Operative Procedure(s) Verified: Yes - Airway Assessment C-Spine Mobility Assessed: Yes TMJ Mobility Assessed: Yes Dentition: Good Dentition - Neurological Assessment Level of Consciousness: Awake, Alert, Appropriate - Anesthesia Plan Anesthesia Risk discussed: Yes Anesthesia Plan: Verified ASA Class: II Anesthesia Type: MAC [facility] History I have reviewed the patient's past medical history: Yes Medical History: Reports:: Atrial Fibrillation, Hyperlipidemia, Hypertension Denies:: Cancer, Diabetes Mellitus Type 1, Diabetes Mellitus Type 2, Internal Pacemaker, MRSA, Seizures *Have you ever received a pneumonia vaccine?: No *Have you received a flu vaccine this season?: Yes Anesthesia experience/problems:: none Other Surgeries: Yes: Hysterectomy-Total, Other. No: Pacemaker Amputation: No Fractures: No - *Social History Last grade of school completed: 7th or 8th Smoking Status: Current every day smoker Tobacco Type: cigarettes # Packs/Day (cigarettes): 1 Alcohol Intake: never Substance Use Type: denies use *Occupational Status:: retired Housing: house Household Members: spouse *Travel in the last 8 weeks: None Family Hx:: Hypertension
--- NOTE | 2020-10-09 11:22 | HMH.PROC ---
[facility] Procedure Note Procedure Note:: Colonoscopy Procedure Report: Colonoscopy with cold snare polypectomy and hemorrhoid band ligation Endoscopist: Neftali Mabry II, MD Referring physician: Ganesh Fonseca MD Date of Procedure: October 09, 2020 Equipment: Olympus 190 variable stiffness pediatric colonoscope Sedation: MAC sedation Indication: Mrs. Villareal is an 80-year-old [place] female with a change in bowel habits who is here for diagnostic colonoscopy. The patient does report incomplete defecation with 2-3 bowel movements in 1 day. She will then go 3 to 4 days without a bowel movement. She does get some bloating and lower abdominal discomfort. She does feel that when she does have defecation that her bowel movements come out towards the right side. She reports no rectal bleeding, weight loss or family history of colon cancer. Procedure: Prior to the procedure, a history and physical exam was performed, and patient's medications and allergies were reviewed. The risks, benefits and alternatives of the sedation and procedure were discussed with the patient. All questions were answered and informed consent was obtained. The patient was brought to the procedure room. Patient identification and proposed procedure were verified by the physician and the nurse. The patient was placed in a left lateral decubitus position and the scope was passed under direct vision. Throughout the procedure, the patient's blood pressure, pulse, and oxygen saturations were monitored continuously. The colonoscopy was accomplished without difficulty. The patient tolerated the procedure well. Findings: On digital rectal examination there was normal rectal tone. There were no external hemorrhoids. The colonoscope was introduced through the anal canal to the rectum and advanced to the cecum. The ileocecal valve and appendiceal orifice were identified. The scope was advanced a short distance into the ileum which appeared grossly normal. The scope was then withdrawn into the colon. The cecum, ascending and transverse colon and mucosa were grossly normal. There was a diminutive 3 to 4 mm descending colon polyp removed via cold snare polypectomy. There were scattered extensive diverticuli throughout the descending and sigmoid colon (LEFT colon). There appeared to be some haustral edema in the sigmoid colon suggestive of mild chronic sigmoid diverticulitis. The rectum itself was normal. Upon retroflexion within the rectum there were 2-3 internal hemorrhoids. These hemorrhoids were banded using 4 bands with excellent ligation effect. The preparation was excellent throughout with Brimley Preparation Score of 9. The cecal time was 12 minutes. Impression: 1. Diminutive descending colon polyp 2. Extensive left-sided diverticulosis with evidence of mild chronic sigmoid diverticulitis 3. Grade 2-3 internal hemorrhoids status post band ligation x4 Plan: The patient will not require any further colonoscopy. I am going to recommend dietary measures and fiber bowel regimen (combined MiraLAX plus Konsyl taken every morning) on a long-term daily maintenance basis.
--- NOTE | 2020-10-09 12:35 | PC.NURSE ---
PT VERY UNCOMFORTABLE FROM HEMORRHOID BANDING, DR CASTILLO AT BEDSIDE AND IS AWARE-DISCUSSED WITH PT PER DR CASTILLO. NO PAIN MED ORDERED AT THIS TIME. INSTRUCTED PT TO TAKE TYLENOL AT HOME.
== END 2020-10-09 12:40 | disposition home or self-care (01) ==
LOC: OUTP 09:36
PROVIDERS: PCP Emergency Medicine; Visit Provider Internal Medicine Gastroenterology
PROC: 0DJD8ZZ Inspection of Lower Intestinal Tract, Via Natural or Artificial Opening Endoscopic (ICD-10-PCS; CPT 45378; principal; 2020-10-09 10:30)
DX: K63.5 Polyp of colon (principal); K57.30 Diverticulosis of large intestine without perforation or abscess without bleeding; K57.32 Diverticulitis of large intestine without perforation or abscess without bleeding; K64.1 Second degree hemorrhoids; I48.91 Unspecified atrial fibrillation; E78.5 Hyperlipidemia, unspecified; I10 Essential (primary) hypertension; Z72.0 Tobacco use; Z82.49 Family history of ischemic heart disease and other diseases of the circulatory system; Z79.82 Long term (current) use of aspirin; Z79.899 Other long term (current) drug therapy; Z91.013 Allergy to seafood
CPT/HCPCS: 45385; 45398; 88305

== ENCOUNTER → 2020-12-23 09:26 | Outpatient (CLI) | payer MEDICARE, BC, SELFPAY ==
[2020-12-23 09:38] LABS: Coronavirus 19, PCR Not Detected (NotDetected); Influenza A, PCR Not Detected (NotDetected); Influenza B, PCR Not Detected (NotDetected)
== END ==
PROVIDERS: Visit Provider Otolaryngology
DX: Z01.812 Encounter for preprocedural laboratory examination (principal); Z20.822 Contact with and (suspected) exposure to COVID-19; K13.0 Diseases of lips
CPT/HCPCS: U0003

== ENCOUNTER 2020-12-24 06:30 | Day surgery (SDC) | payer MEDICARE, BC, SELFPAY ==
[2020-12-23 08:33] VITALS: BMI 22.1
--- NOTE | 2020-12-24 06:50 | ECG_ITS ---
APPROVED REPORT Exam: Resting ECG HR:65 bpm ECG Measurements Heart Rate 65 AXES DE 210 P 69 QRSd 96 QRS 30 QT 480 T 136 QTc 499 Conclusion Sinus rhythm with 1st degree AV block T wave abnormality, consider anterolateral ischemia Prolonged QT Abnormal ECG Electronically signed by : Rony Kwan MD 12/24/2020 22:27:27
[2020-12-24 06:56] VITALS: BP 134/87; PULSE 65; RESP 18; TEMP 36.9; O2SAT 98
[2020-12-24 07:12] LABS: Basophils # 0.1 K/mm3 (0-0.2); Basophils % 1.5 % (0.1-2.0); Eosinophils # 0.4 K/mm3 (0.0-0.4); Hematocrit 40.4 % (37.0-47.0); Hemoglobin 13.7 g/dL (12.2-16.2); Lymphocytes # 1.2 K/mm3 (0.7-4.5); Lymphocytes % 26.9 % (10-50); Mean Corpuscular HGB Conc 33.9 g/dL (31.8-35.4); Mean Corpuscular Hemoglobin 31.7 pg (27.0-31.2); Mean Corpuscular Volume 93.3 fl (81-99); Mean Platelet Volume 7.8 fl (7.4-10.4); Monocytes # 0.3 K/mm3 (0.1-1.0); Monocytes % 6.5 % (1.7-9.3); Neutrophils # 2.6 K/mm3 (1.8-7.8); Platelet Count 166 K/mm3 (142-424); Red Blood Count 4.33 M/mm3 (4.20-5.40); White Blood Count 4.6 K/mm3 (4.8-10.8)
--- NOTE | 2020-12-24 07:14 | HMH.ANESCL ---
[facility] Anesthesia Checklist - Patient Identification Patient Identification: Arm Band - Structural Data Admitted From: Home Planned Operative Procedure/s: Excision lip lesion Consent for Planned Operative Procedure(s) Verified: Yes - NPO Status Verified Time NPO: 00:00 - Additional verifications Anesthesia Reactions: No Hx Blood Transfusions: No Blood Transfusion Reaction: No - Airway Assessment C-Spine Mobility Assessed: Yes TMJ Mobility Assessed: Yes Dentition: Good Dentition - Neurological Assessment Level of Consciousness: Awake Hx Seizures: No Numbness or tingling in extremities: No - Anesthesia Plan Anesthesia Risk discussed: Yes Anesthesia Plan: Verified ASA Class: III Anesthesia Type: Local & MAC [facility] History I have reviewed the patient's past medical history: Yes Medical History: Reports:: Atrial Fibrillation, Hyperlipidemia, Hypertension Denies:: Cancer, Diabetes Mellitus Type 1, Diabetes Mellitus Type 2, Internal Pacemaker, MRSA, Seizures *Have you ever received a pneumonia vaccine?: No *Have you received a flu vaccine this season?: No (refused) Other Medical History: Denies: Blood Transfusion Reaction Anesthesia experience/problems:: None Other Surgeries: Yes: Hysterectomy-Total, Other. No: Pacemaker Amputation: No Fractures: No - *Social History Last grade of school completed: High school graduate Smoking Status: Current every day smoker Tobacco Type: cigarettes # Packs/Day (cigarettes): 1 Alcohol Intake: never Substance Use Type: denies use *Occupational Status:: retired Housing: house Household Members: spouse *Travel in the last 8 weeks: None Family Hx:: Hypertension
[2020-12-24 08:23] VITALS: BP 137/75; PULSE 71; RESP 18; TEMP 36.1; O2SAT 95
--- NOTE | 2020-12-24 08:30 | HMH.OPNOTE ---
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 The perilesional area was infiltrated with 3 cc of 2% lidocaine containing epinephrine. The lesion was a vascular lesion which involved the red lip and the white lip. The lesion was marked out and the jeannette out measured 2.8 cm. The jeannette up was incised and the lesion was excised and submitted. Bleeding was 8 cc and completely stopped with suction cautery. Lateral incisions were made and a tissue rearrangement Z-plasty repair was done with interrupted 2-0 nylon sutures, after Surgicel snow was placed in the defect. A Dermabond dressing was applied along with a Steri-Strip dressing and the patient was sent to recovery in good general condition. Condition: stable Disposition: PACU Complications:: none
[2020-12-24 08:33] VITALS: BP 148/74; PULSE 70; RESP 18; O2SAT 96
[2020-12-24 08:45] VITALS: BP 147/75; PULSE 65; RESP 18; O2SAT 96
== END 2020-12-24 08:49 | disposition home or self-care (01) ==
LOC: OR 06:33
PROVIDERS: PCP Emergency Medicine; Visit Provider Otolaryngology
DX: I10 Essential (primary) hypertension (principal); I48.91 Unspecified atrial fibrillation; E78.5 Hyperlipidemia, unspecified; Z82.49 Family history of ischemic heart disease and other diseases of the circulatory system; Z72.0 Tobacco use; Z91.013 Allergy to seafood; Z79.82 Long term (current) use of aspirin; Z79.899 Other long term (current) drug therapy; D18.01 Hemangioma of skin and subcutaneous tissue
CPT/HCPCS: 14060; 85025; 88305; 93005; 96374; 96375

== ENCOUNTER → 2021-04-02 10:29 | Outpatient (CLI) | payer MEDICARE, BC, SELFPAY | PROVIDERS: PCP Emergency Medicine; Visit Provider Internal Medicine Cardiovascular Disease | DX: E78.2 Mixed hyperlipidemia (principal); I10 Essential (primary) hypertension; I48.0 Paroxysmal atrial fibrillation; R00.2 Palpitations | CPT/HCPCS: 93270 ==

== ENCOUNTER → 2021-10-28 07:00 | Outpatient (CLI) | payer MEDICARE, BC, SELFPAY | PROVIDERS: PCP Nurse Practitioner Family; Visit Provider Nurse Practitioner Family | DX: N39.0 Urinary tract infection, site not specified (principal); Z79.899 Other long term (current) drug therapy; B96.20 Unspecified Escherichia coli [E. coli] as the cause of diseases classified elsewhere | CPT/HCPCS: 87086; 87088; 87186 ==

== ENCOUNTER 2021-11-03 19:44 | Emergency (ER) | payer MEDICARE, BC, SELFPAY ==
[2021-11-03 19:40] VITALS: BP 105/48; PULSE 66; RESP 16; TEMP 37.1; O2SAT 96; BMI 22.1
--- NOTE | 2021-11-03 19:52 | ECG_ITS ---
APPROVED REPORT Exam: Resting ECG HR:63 bpm ECG Measurements Heart Rate 63 AXES AK 207 P 86 QRSd 83 QRS 62 QT 377 T 92 QTc 384 Conclusion SINUS RHYTHM SEPTAL MYOCARDIAL INFARCTION , OF INDETERMINATE AGE [40+ ms Q WAVE IN V1/V2] ABNORMAL ECG UNCONFIRMED REPORT Electronically signed by : Rony Kwan MD 11/05/2021 17:33:48
[2021-11-03 20:04] VITALS: BP 102/45; BP 105/48; BP 109/51; PULSE 64; PULSE 65; PULSE 66
--- NOTE | 2021-11-03 20:18 | HMH.EDSYNC ---
ED Disposition Clinical Impression: Syncope Qualifiers: Syncope type: unspecified Qualified Code(s): R55 - Syncope and collapse Chest pain Qualifiers: Chest pain type: precordial pain Qualified Code(s): R07.2 - Precordial pain Disposition: Home, Self-Care Condition on Discharge: Good Instructions: DI for Syncope in Adults (Fainting) Additional Instructions: see pcp for follow up Referrals: Provider,Referral, MD [Primary Care Provider] - - Critical Care Critical Care Time: No Attestation: On 11/03/21, the high probability of a clinically significant, sudden or life threatening deterioration of the following system(s) required my full and direct attention, intervention and personal management. The time I documented below is in addition to time spent performing reported procedures but includes the following listed in this critical care notation. Medical Decision Making - Medical Records Medical records reviewed: Yes: I reviewed the patient's medical records. - Saeed Inquiry Pt receiving controlled substance: No Vital Signs: 11/03/21 19:40 11/03/21 20:04 Temperature 98.8 F Temperature Source Oral Pulse Rate [Left] 66 Pulse Rate [Orthostatic Lying Left] 64 Pulse Rate [Orthostatic Sitting Right] 66 Pulse Rate [Orthostatic Standing Right] 65 Respiratory Rate 16 Blood Pressure [Orthostatic Lying Right Arm] 102/45 L Blood Pressure [Orthostatic Sitting Right Arm] 105/48 L Blood Pressure [Orthostatic Standing Right Arm] 109/51 L Blood Pressure [Right Arm] 105/48 L Blood Pressure Mean [Right Arm] 67 02 Sat by Pulse Oximetry 96 Oxygen Delivery Method Room Air - Lab Data Lab results reviewed: Yes: I reviewed the patient's lab results. Lab Results 11/03/21 19:54: WBC 8.7, RBC 4.26, Hgb 13.8, Hct 42.1, MCV 98.8, MCH 32.5 H, MCHC 32.9, RDW 14.1, Plt Count 280, MPV 8.4, Neut % (Auto) 64.2, Lymph % (Auto) 24.0, [place] % (Auto) 7.5, Eos % (Auto) 1.8, Baso % (Auto) 2.5 H, Neut # (Auto) 5.6, Lymph # (Auto) 2.1, [place] # (Auto) 0.7, Eos # (Auto) 0.2, Baso # (Auto) 0.2 11/03/21 19:54: Sodium 135 L, Potassium 3.7, Chloride 100, Carbon Dioxide 28, Anion Gap 10.7, BUN 30 H, Creatinine 1.20 H, Estimated Creat Clear 30, Estimated GFR 43 L, Est GFR ( Amer) 52 L, Glucose 124 H, Calcium 8.8, Total Bilirubin 0.2, AST 29, ALT 30, Alkaline Phosphatase 79, Troponin I < 0.01, Total Protein 6.4, Albumin 3.6, Globulin 2.8, Albumin/Globulin Ratio 1.3 Result diagrams: 11/03/21 19:54 11/03/21 19:54 Orders (Tests/Meds): ED MEDICATIONS Generic Name Dose Route Start Last Admin Trade Name Freq PRN Reason Stop Dose Admin Sodium Chloride 1,000 mls @ 999 mls/hr 11/03/21 20:30 Sod Chlor 0.9% 1000ml Bag IV 11/03/21 21:30 .Q1H1M JUJU ORDERS Category Date Time Status Pelvis XR 1-2 views [XR pelvis 1-2V] Stat Exams 11/03/21 20:22 Taken XR chest AP Stat Exams 11/03/21 20:21 Taken Troponin I Q3H Lab 11/03/21 23:30 Ordered Troponin I Q3H Lab 11/04/21 02:30 Ordered Urinalysis and Microscopic Stat Lab 11/03/21 20:22 Ordered - Radiology Data #1 Image(s): Chest, Pelvis Image Reviewed: Yes I have reviewed radiologist's interpretation Preliminary Findings: Normal/NAD - CT Data CT Scan: Head, C-Spine Time Received: 21:[address] Reviewed: Yes: I have viewed the radiologist's interpretation Preliminary Findings: No Fracture Seen - ECG Data Tracing #1 Normal Sinus Rhythm: Yes Ischemic changes: non-specific ST-T wave changes - DEEJAY Score for Non-Stemi Age of Patient: 80-89 years old Heart Rate: 50-69 bpm Systolic Blood Pressure: 100-119 mmHg Serum Creatinine: 1.20-1.59 mg/dl CHF Killip Class: I-No CHF Other Risk Factors: None Non-Stemi Risk Score: 147 Medical Decision Narrative: pt at baseline at this time and declined admit will need card eval Syncope HPI - General Chief Complaint: Syncope Stated Complaint: syncope Time Seen by Provider: 11/03/21 20:18 Mode of Arri
--- NOTE | 2021-11-03 20:21 | XR_ITS ---
PROCEDURE INFORMATION: Exam: XR Chest Exam date and time: 11/03/2021 8:37 PM Age: 81 years old Clinical indication: Other: Upper gi pain TECHNIQUE: Imaging protocol: Radiologic exam of the chest. Views: 4 or more views. COMPARISON: CHESTWO CT chest wo con 03/01/2018 1:59 PM FINDINGS: Lungs: Streaky opacities at the lung bases. No lobar consolidation. Pleural spaces: No pleural effusion. No pneumothorax. Heart/Mediastinum: No cardiomegaly. Bones/joints: Degenerative changes of the shoulders. IMPRESSION: Streaky opacities at the lung bases which may be hypoventilatory however pneumonitis should be clinically excluded.
--- NOTE | 2021-11-03 20:22 | XR_ITS ---
PROCEDURE INFORMATION: Exam: XR Pelvis Exam date and time: 11/03/2021 8:37 PM Age: 81 years old Clinical indication: Pelvic pain; Additional info: Syncope, pain. Fall TECHNIQUE: Imaging protocol: Radiologic exam of the pelvis. Views: 1 or 2 view. COMPARISON: ABDPELWO CT abdomen pelvis wo con 02/20/2018 9:26 PM FINDINGS: Bones/joints: Minimal degenerative changes of the lumbosacral spine and hips. No acute fracture. Soft tissues: Several small ossified densities within the subcutaneous tissues adjacent to the anterior superior iliac spine on the left. IMPRESSION: No acute findings.
--- NOTE | 2021-11-03 20:22 | CT_ITS ---
PROCEDURE INFORMATION: Exam: CT Head Without Contrast Exam date and time: 11/03/2021 8:31 PM Age: 81 years old Clinical indication: Syncope and collapse TECHNIQUE: Imaging protocol: Computed tomography of the head without contrast. Radiation optimization: All CT scans at this facility use at least one of these dose optimization techniques: automated exposure control; mA and/or kV adjustment per patient size (includes targeted exams where dose is matched to clinical indication); or iterative reconstruction. COMPARISON: No relevant prior studies available. FINDINGS: Brain: White matter changes compatible with small vessel occlusive change with global atrophy. 3 mm hypodensity within the inferior right basal ganglia which may be a small prior lacunar infarct versus dilated perivascular space. No mass. No hemorrhage. Cerebral ventricles: No ventriculomegaly. Paranasal sinuses: No fluid levels. Mastoid air cells: Visualized mastoid air cells are well aerated. Bones/joints: No acute fracture. Soft tissues: No significant soft tissue abnormality. IMPRESSION: Chronic changes without acute process.
--- NOTE | 2021-11-03 20:22 | CT_ITS ---
PROCEDURE INFORMATION: Exam: CT Cervical Spine Without Contrast Exam date and time: 11/03/2021 8:31 PM Age: 81 years old Clinical indication: Neck pain; Additional info: Syncope, fall TECHNIQUE: Imaging protocol: Computed tomography of the cervical spine without contrast. Radiation optimization: All CT scans at this facility use at least one of these dose optimization techniques: automated exposure control; mA and/or kV adjustment per patient size (includes targeted exams where dose is matched to clinical indication); or iterative reconstruction. COMPARISON: CHESTWO CT chest wo con 03/01/2018 1:59 PM FINDINGS: Bones/joints: Moderately severe degenerative changes of the cervical spine. Scoliosis. No acute fracture or dislocation. Lungs: Lung apices are normal. Vasculature: Calcified atherosclerosis. No aneurysm. Soft tissues: No soft tissue swelling. IMPRESSION: Chronic changes without acute process.
[2021-11-03 20:39] LABS: Basophils # 0.2 K/mm3 (0-0.2); Basophils % 2.5 % (0.1-2.0); Eosinophils # 0.2 K/mm3 (0.0-0.4); Eosinophils % 1.8 % (0.1-12.0); Hematocrit 42.1 % (37.0-47.0); Hemoglobin 13.8 g/dL (12.2-16.2); Lymphocytes # 2.1 K/mm3 (0.7-4.5); Mean Corpuscular HGB Conc 32.9 g/dL (31.8-35.4); Mean Corpuscular Hemoglobin 32.5 pg (27.0-31.2); Mean Corpuscular Volume 98.8 fl (81-99); Mean Platelet Volume 8.4 fl (7.4-10.4); Monocytes # 0.7 K/mm3 (0.1-1.0); Monocytes % 7.5 % (1.7-9.3); Neutrophils # 5.6 K/mm3 (1.8-7.8); Neutrophils % 64.2 % (37.0-80.0); Platelet Count 280 K/mm3 (142-424); Red Blood Count 4.26 M/mm3 (4.20-5.40); Red Cell Distribution Width 14.1 % (11.5-17.5); White Blood Count 8.7 K/mm3 (4.8-10.8)
--- NOTE | 2021-11-03 20:45 | PC.NURSE ---
pt returned from CT. Son at bedside, warm blankets provided
[2021-11-03 20:55] LABS: Alanine Aminotransferase 30 U/L (12-78); Albumin Level 3.6 g/dl (3.5-5.0); Albumin/Globulin Ratio 1.3 (1.1-1.8); Alkaline Phosphatase 79 U/L (38-126); Anion Gap 10.7 mEq/L (5-15); Aspartate Amino Transferase 29 U/L (14-36); Bilirubin,Total 0.2 mg/dl (0.2-1.3); Blood Urea Nitrogen 30 mg/dl (7-17); Calcium 8.8 mg/dl (8.4-10.2); Carbon Dioxide 28 mmol/L (22.0-30.0); Chloride 100 mmol/L (98-107); Creatinine Clearance Estimated 30 mL/min (50-200); Estimated Glomerular Filt Rate 43 ml/min (>60); GFR (African American) 52 ML/MIN (>60); Globulin 2.8 g/dL (1.3-3.2); Glucose 124 mg/dl (74-100); Potassium 3.7 mmoL/L (3.5-5.1); Sodium 135 mmol/L (136-145); Total Protein,Serum 6.4 g/dl (6.3-8.2)
[2021-11-03 21:10] LABS: Troponin I < 0.01 ng/ml (0.00-0.034)
[2021-11-03 22:25] VITALS: BP 110/60; PULSE 64; RESP 16; TEMP 36.9; O2SAT 98
== END 2021-11-03 22:30 | disposition home or self-care (01) ==
PROVIDERS: Emergency Provider Emergency Medicine
DX: R55 Syncope and collapse (principal); R07.2 Precordial pain; Z79.899 Other long term (current) drug therapy; Z88.8 Allergy status to other drugs, medicaments and biological substances; I48.91 Unspecified atrial fibrillation; E78.5 Hyperlipidemia, unspecified; I10 Essential (primary) hypertension; Z87.42 Personal history of other diseases of the female genital tract; Z85.828 Personal history of other malignant neoplasm of skin; Z72.0 Tobacco use
CPT/HCPCS: 70450; 71045; 72125; 72170; 80053; 84484; 85025; 93005; 99284

== ENCOUNTER → 2021-11-11 07:20 | Outpatient (CLI) | payer MEDICARE, BC, SELFPAY | PROVIDERS: PCP Emergency Medicine; Visit Provider Internal Medicine Cardiovascular Disease | DX: E78.2 Mixed hyperlipidemia (principal); I10 Essential (primary) hypertension; I48.0 Paroxysmal atrial fibrillation; R07.2 Precordial pain; R55 Syncope and collapse; Z72.0 Tobacco use; Z01.812 Encounter for preprocedural laboratory examination; Z20.822 Contact with and (suspected) exposure to COVID-19 | CPT/HCPCS: C9803; U0003; U0005 ==

== ENCOUNTER 2021-11-12 08:09 | Day surgery (SDC) | payer MEDICARE, BC, SELFPAY ==
[2021-11-12] VITALS (12 sets, daily range): BP systolic 110–154; BP diastolic 59–88; PULSE 57–70; RESP 16–20; TEMP 36.9; O2SAT 92–100; BMI 22.1
--- NOTE | 2021-11-12 07:19 | IR_ITS ---
APPROVED REPORT [facility] Teacher: JESSICA Tovar RT (R) PROCEDURES Left heart catheterization Left ventriculogram Selective coronary angiogram INDICATION Suspected coronary artery disease, Angina pectoris Informed consent was obtained prior to the procedure. COMPLICATIONS None Estimated Blood Loss: Less than 10 mls TECHNIQUE One percent lidocaine used to anesthetize the right anterior aspect of the wrist. The right radial artery was accessed via the Seldinger technique. A 6 [place] sheath was placed in the right radial artery. 2.5 mg of verapamil, 800 mcg of nitroglycerin, 1mg Lidocaine and 5000 U Heparin were given through the arterial sheath. The papa catheter was also used to perform left heart catheterization, left ventriculogram and selective coronary angiogram. At the end of the procedure the sheath was removed good hemostasis was achieved using Traclet band, patient was transferred to the postop holding area in stable condition. ANGIOGRAPHIC RESULTS The left main artery Has an ostial smooth concentric 30% stenosis The left anterior descending artery Large-caliber vessel mild luminal irregularities The circumflex artery Nondominant mild luminal irregularities The right coronary artery Massively large dominant vessel with mild 10 to 20% luminal irregularities The NERI ventriculogram reveals Hyperdynamic at 75% The left ventricular end-diastolic pressure 25 mmHg IMPRESSION Mild to moderate left main coronary artery disease Hyperdynamic ventricle Elevated LVEDP I suspect patient's angina pectoris stems from hypertensive heart disease with diastolic dysfunction PLAN 1. Empiric treatment of coronary artery disease with statin therapy and standard therapy for ischemic heart disease 2. Aggressive therapy of diastolic dysfunction which is likely etiology for patient's angina Electronically signed by : Keanu Villela MD 11/12/2021 11:12:17
--- NOTE | 2021-11-12 08:21 | CA_ITS ---
APPROVED REPORT EXAM: Comprehensive 2D, Doppler, and color-flow Echocardiogram Machine Plug Shaper: Jenni Davis CRT Ht: 5 ft 1 in Wt: 117lbs BSA: 1.50 BP: 152/64 mmHg Indications: Chest Pain, Shortness of Breath, Atrial Fibrillation, Syncope, Hyperlipidemia, Hypertension/HDD 2D Dimensions LVOT 1.71 cm (M/F) 1.5-2.5 LA Volume 31.80 mL LA Volume Index 21.20 mL/m2 (M/F) 16-34 M-Mode Dimensions RVDd 2.86 cm (0.9-2.6) LA Diam 4.16 cm (1.9-4.0) LVDd 4.27 cm (3.5-5.7) Ao Diam 3.91 cm (2.0-3.7) LVDs 2.09 cm (3.5-5.7) IVSd 1.53 cm (0.6-1.1) PWd 0.89 cm (0.6-1.1) EF (Teich) 82.60% FS 51.10% EDV (Teich) 81.70 mL TAPSE 2.31 (<1.7) ESV (Teich) 14.20 mL LV Diastology E Decel Time 263.00 (160-240 msec) E/A Ratio 0.69 MED E' 5.80 (< 7 cm/sec) MED A' 8.80 cm/s E'/MED E' Ratio 11.02 (>14) LAT E' 8.20 (<10 cm/sec) LAT A' 9.20 cm/s E/LAT E' Ratio 7.79 (>14) Aortic Valve AO Peak GR. 10.60 mmHg Mitral Valve MV E Max Flip. 64.00 (40-130 cm/s) MV A Velocity 93.00 (40-130 cm/s) E/A Ratio 0.69 MV Decel. Time 263.00 (160-240 ms) MV PHT 77.00 ms Pulmonary Valve PV Peak Velocity 86.00 (50-150 cm/s) Tricuspid Valve TR P. Velocity 271.00 cm/s RAP Estimate 10.00 mmHg RVSP 39.30 mmHg Left Ventricle Left atrium is moderately enlarged, left ventricle is normal size mild concentric left ventricular hypertrophy, estimated ejection fraction 55% with no regional wall motion abnormality, grade 1 diastolic dysfunction seen without tissue Doppler evidence of raise left atrial pressure. Right Ventricle Right atrium and right ventricle are normal size and contractility. Aortic Valve Aortic valve is minimally thickened and fibrosed there is no aortic stenosis or aortic insufficiency. Mitral Valve Mitral valve has mitral calcification there is no mitral stenosis, there is mild mitral regurgitation. Tricuspid Valve Tricuspid grossly normal, there is mild tricuspid regurgitation, tricuspid regurgitation jet velocity is inadequate for calculation of the right ventricular systolic pressure. Pulmonic Valve Pulmonic valve is poorly visualized. Great Vessels Aortic root is normal size. Inferior vena cava is poorly visualized. Pericardium No significant pericardial effusion noted. Conclusion 1. Moderately enlarged left atrium, normal left ventricular size mild concentric left ventricular hypertrophy, estimated ejection fraction 55% with no regional wall motion abnormality, grade 1 diastolic dysfunction seen without tissue Doppler evidence of raise left atrial pressure. 2. Mild mitral and tricuspid rotation. 3. No significant pericardial effusion noted. 4. Inferior vena cava is normal size with normal inspiratory collapse. Electronically signed by : Tanner Frye MD 11/12/2021 10:01:14
== END 2021-11-12 14:16 | disposition home or self-care (01) ==
LOC: CATHLAB 08:11
PROVIDERS: Internal Medicine; PCP Emergency Medicine; Visit Provider Internal Medicine Cardiovascular Disease
DX: E78.2 Mixed hyperlipidemia (principal); I10 Essential (primary) hypertension; I25.118 Atherosclerotic heart disease of native coronary artery with other forms of angina pectoris; I48.0 Paroxysmal atrial fibrillation; R07.2 Precordial pain; R55 Syncope and collapse; R94.31 Abnormal electrocardiogram [ECG] [EKG]; Z79.899 Other long term (current) drug therapy
CPT/HCPCS: 93306; 93458; 99152; C1725; C1769; J1644; Q9967

== ENCOUNTER → 2022-03-18 14:50 | Outpatient (CLI) | payer MEDICARE, BC, SELFPAY | PROVIDERS: PCP Student in an Organized Health Care Education/Training Program; Visit Provider Student in an Organized Health Care Education/Training Program | DX: N39.0 Urinary tract infection, site not specified (principal); B96.29 Other Escherichia coli [E. coli] as the cause of diseases classified elsewhere | CPT/HCPCS: 87086; 87088; 87186 ==

== ENCOUNTER → 2022-03-28 13:36 | Outpatient (CLI) | payer MEDICARE, BC, SELFPAY ==
--- NOTE | 2022-03-28 13:42 | XR_ITS ---
FINAL REPORT CLINICAL HISTORY: wrist injury, fall FINDINGS: RIGHT WRIST Three views demonstrate a mildly impacted, transverse fracture of the distal radial metaphysis. There is no definite intra-articular extension. There is also a subtle, mildly displaced fracture through the ulnar styloid. The visualized joint spaces are normally aligned. The soft tissues are unremarkable. IMPRESSION: Fractures of the radius and ulna as above. Reviewed, Interpreted and Dictated by Quinton Santos MD Transcribed by Nidia Ram Authenticated and [facility]
== END ==
PROVIDERS: PCP Emergency Medicine; Visit Provider Emergency Medicine
DX: S69.91XA Unspecified injury of right wrist, hand and finger(s), initial encounter (principal); M25.531 Pain in right wrist
CPT/HCPCS: 73110

== ENCOUNTER → 2022-04-21 13:20 | Outpatient (CLI) | payer MEDICARE, BC, SELFPAY ==
--- NOTE | 2022-04-21 13:23 | XR_ITS ---
FINAL REPORT CLINICAL HISTORY: wrist fracture f/u COMPARISON: March 28, 2022 FINDINGS: 3 views of the right wrist were obtained. Overlying cast material obscures bony detail. There are stable fractures of the distal radius and ulnar styloid process. There is evidence of healing. IMPRESSION: Healing fractures of the distal radius and ulnar styloid process. Reviewed, Interpreted and Dictated by Royal Moreno III, MD Transcribed by Taco Elizabeth Authenticated and . [facility]
== END ==
PROVIDERS: PCP Emergency Medicine; Visit Provider Orthopaedic Surgery
DX: S52.501A Unspecified fracture of the lower end of right radius, initial encounter for closed fracture (principal)
CPT/HCPCS: 73110

== ENCOUNTER → 2022-05-12 13:05 | Outpatient (CLI) | payer MEDICARE, BC, SELFPAY ==
--- NOTE | 2022-05-12 13:09 | XR_ITS ---
FINAL REPORT CLINICAL HISTORY: wrist fx COMPARISON: April 21, 2022 FINDINGS: 3 views of the right wrist were obtained. Overlying cast material obscures detail. There are subacute fractures of the distal radius and ulnar styloid process. Bony alignment is stable. The joint spaces are intact. There is no soft tissue abnormality. IMPRESSION: Distal radius and ulnar styloid process fractures, stable alignment. Reviewed, Interpreted and Dictated by Royal Moreno III, MD Transcribed by Taco Elizabeth Authenticated and [facility]
== END ==
PROVIDERS: PCP Emergency Medicine; Visit Provider Orthopaedic Surgery
DX: S52.611A Displaced fracture of right ulna styloid process, initial encounter for closed fracture (principal)
CPT/HCPCS: 73110

== ENCOUNTER 2022-05-26 11:00 | Outpatient (RCR) | payer MEDICARE, BC, SELFPAY | END 2023-05-26 11:00 | disposition home or self-care (01) | LOC: OT 11:00 | PROVIDERS: PCP Orthopaedic Surgery; Visit Provider Orthopaedic Surgery | DX: M25.531 Pain in right wrist (principal); S52.611A Displaced fracture of right ulna styloid process, initial encounter for closed fracture; S52.501A Unspecified fracture of the lower end of right radius, initial encounter for closed fracture; S69.91XA Unspecified injury of right wrist, hand and finger(s), initial encounter | CPT/HCPCS: 97763 ==

== ENCOUNTER → 2022-05-26 12:57 | Outpatient (CLI) | payer MEDICARE, BC, SELFPAY ==
--- NOTE | 2022-05-26 13:05 | XR_ITS ---
FINAL REPORT CLINICAL HISTORY: wrist pain, right wrist fracture COMPARISON: 05/12/2022 FINDINGS: RIGHT WRIST Three views demonstrate fracture of the distal radial metastasis with evidence of interval healing. There is a probable ulnar styloid process fracture. Overlying cast material obscures detail. IMPRESSION: Apparent interval healing of distal radial metaphysis fracture. Reviewed, Interpreted and Dictated by Royal Moreno III, MD Transcribed by Nidia Ram Authenticated and [facility]
== END ==
PROVIDERS: PCP Emergency Medicine; Visit Provider Orthopaedic Surgery
DX: S52.501A Unspecified fracture of the lower end of right radius, initial encounter for closed fracture (principal)
CPT/HCPCS: 73110; 97763

== ENCOUNTER 2022-05-26 15:13 | Outpatient (RCR) | payer BC, MEDICARE, SELFPAY | END 2022-05-26 16:30 | disposition home or self-care (01) | LOC: OT 15:13 | PROVIDERS: Visit Provider Orthopaedic Surgery | DX: S52.611A Displaced fracture of right ulna styloid process, initial encounter for closed fracture (principal) ==

== ENCOUNTER 2022-07-09 09:18 | Emergency (ER) | payer MEDICARE, BC, SELFPAY ==
--- NOTE | 2022-07-09 09:25 | PC.NURSE ---
patient ambulatory to restroom with assistance from ANGE [place]. No complications. Family at BS
--- NOTE | 2022-07-09 09:32 | PC.NURSE ---
patient unable to void at this time
[2022-07-09 09:35] VITALS: BP 142/72; PULSE 76; O2SAT 100
[2022-07-09 09:38] VITALS: BP 142/72; PULSE 76; RESP 16; TEMP 36.5; O2SAT 99; BMI 21.7
--- NOTE | 2022-07-09 09:55 | HMH.EDGENADL ---
Discharge Plan Disposition Patient Disposition: Home, Self-Care Condition: Good Prescriptions Prescriptions: New cefadroxil 500 mg capsule 500 mg PO BID 5 Days Qty: 10 0RF No Action losartan 50 mg tablet 50 mg PO DAILY Qty: 30 5RF amlodipine 5 mg tablet 5 mg PO DAILY Qty: 30 5RF hydrochlorothiazide 12.5 mg tablet See Rx Instructions .Route .COMPLEX Qty: 30 5RF Rx Instructions: Take 1 tablet by mouth once daily hydrocortisone [Anusol-HC] 2.5 % cream with perineal applicator 1 applic RC BID PRN (Reason: hemorrhoids) Qty: 30 0RF aspirin [Adult Low Dose Aspirin] 81 mg tablet,delayed release (DR/EC) 81 mg PO DAILY PRN (Reason: thinner) nitrofurantoin macrocrystal 100 mg capsule 100 mg PO BID 7 Days Qty: 14 0RF Rx Instructions: must administer with a meal/food pravastatin 10 mg tablet 10 mg PO DAILY Qty: 90 3RF flecainide 100 mg tablet See Rx Instructions .ROUTE .COMPLEX Qty: 180 0RF Dose Instruction: TAKE 1 TABLET BY MOUTH EVERY 12 HOURS Rx Instructions: TAKE 1 TABLET BY MOUTH EVERY 12 HOURS montelukast 10 MG tablet 10 mg PO DAILY Referrals Follow up/Referrals: Ganesh Fonseca MD [Primary Care Provider] - See instructions Patrick Cho MD [Staff Physician] - See instructions (Concern for mild bladder prolapse on physical exam. Bulging and pressure with straining bowel movement) Activity Restrictions/Add. Instructions Additional Instructions/Restrictions: Take Tylenol 1000 mg every 6 hours (4 times daily) and ibuprofen 400 mg every 6 hours as needed with food and water to prevent GI upset and kidney damage. Follow-up with vascular surgery at [facility] ([phone]) if they do not call you Monday, 07/11. Also follow-up with your bead forming machine operator, Dr. Cho, out of concern for bladder prolapse. Take antibiotic twice daily for 5 days as prescribed to treat your urinary tract infection. If you have any other concerning signs or symptoms, return to the ER for further evaluation, or your primary care provider. Clinical Impressions Clinical Impression: Cystitis, Aortic dissection, abdominal, Bladder prolapse, female, acquired Instructions Patient Instructions: DI for Acute Abdominal Pain Discharge ED Provider: Krzysztof Orozco General Adult HPI General Chief complaint: Abdominal Pain Stated complaint: Abdominal Pain Time Seen by Provider: 07/09/22 09:20 Mode of Arrival: Ambulatory Source of Information: Patient and Relative Limitations: No Limitations Description of Symptoms (Recalled from ER Triage Doc. by RN): Presents with suprapubic pressure after BM this morning. Hx of bladder tuck. Pt saw PCP yesterday. History of Present Illness HPI narrative: This is an 82-year-old female with self-reported history of hysterectomy, hemorrhoids, CAD presenting with lower abdominal pain. Patient states that this morning, 07/09 around 6 AM, she was drinking coffee, had lower abdominal cramping. Went to the bathroom, had large volume bowel movement, which helped her symptoms. No blood in her bowel movement. Since that time, she continued to drink coffee and had lower abdominal cramping pain. She states it is 8 out of 10 at its worst, mild currently and comes and goes. Radiates to her back and bilateral flanks. Denies dysuria or hematuria, but states that she has difficulty urinating and pressure when she has bowel movements as well as swelling in my female parts. She has been on stool softeners recently because of hemorrhoids and constipation, which has largely resolved after using MiraLAX. Does not notice anything that makes the swelling or pressure in her vagina better. Related Data Home Medications Medication Instructions Recorded Confirmed aspirin 81 mg tablet,delayed 81 mg PO DAILY PRN thinner 03/04/19 06/28/22 release (Adult Low Dose Aspirin) montelukast 10 mg tablet 10 mg PO DAILY . 11/12/21 06/28/22 Previous Rx's Me
--- NOTE | 2022-07-09 09:56 | CT_ITS ---
PROCEDURE INFORMATION: Exam: CT Abdomen And Pelvis With Contrast Exam date and time: 07/09/2022 11:17 AM Age: 82 years old Clinical indication: Abdominal pain; Generalized; Additional info: Lower abd cramping and pain TECHNIQUE: Imaging protocol: Computed tomography of the abdomen and pelvis with contrast. Radiation optimization: All CT scans at this facility use at least one of these dose optimization techniques: automated exposure control; mA and/or kV adjustment per patient size (includes targeted exams where dose is matched to clinical indication); or iterative reconstruction. Contrast material: ISOVUE; Contrast volume: 75 ml; Contrast route: IV; REPORTING DATA: Count of CT and Cardiac NM exams in prior 12 months: This patient has received 2 known CTs and 0 known cardiac nuclear medicine studies in the 12 months prior to the current study. COMPARISON: [facility] CT abdomen pelvis wo con 02/20/2018 9:26 PM FINDINGS: Lungs: Opacities in the middle lobe and lingula. No lung nodules or pleural effusions. Liver: Normal. No mass. Gallbladder and bile ducts: Normal. No calcified stones. No ductal dilation. Pancreas: Normal. No ductal dilation. Spleen: Normal. No splenomegaly. Adrenal glands: Normal. No mass. Kidneys and ureters: Normal. No hydronephrosis, calcified stones, or masses. Stomach and bowel: No other wall thickening, intestinal masses, or abnormal luminal dilatation. Appendix: No evidence of appendicitis. Intraperitoneal space: No free air. No masses or significant fluid collection. Vasculature: 2 cm focus of intimal dissection in the infrarenal aorta 7 cm segment of nonspecific wall thickening and subtle stranding of surrounding fat in the distal descending colon with an absence of diverticula. 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 The distal branches are opacified have no filling defects. Lymph nodes: No enlarged lymph nodes. Urinary bladder: No significant wall thickening. Reproductive: Uterus is surgically absent. No adnexal masses. Bones/joints: No acute fracture or bone lesions. Soft tissues: No masses or other abnormalities. IMPRESSION: 1. Opacities in the right middle lobe and lingula are favored to be atelectasis rather than pneumonia. 2. Short segment of intimal dissection in the infrarenal aorta without aneurysmal dilatation. No para-aortic masses or fluid collections. 3. 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 4. 7 cm segment of the nonspecific wall thickening in the descending colon suspicious for colitis. ANA
--- NOTE | 2022-07-09 09:59 | PC.NURSE ---
SANG DIAZ at BS for exam; Mikey Ellis at BS assisting
[2022-07-09 10:01] VITALS: BP 152/61; PULSE 65; RESP 16; O2SAT 100
[2022-07-09 10:08] LABS: Chloride 105 mmol/L (98-107); Potassium 3.6 mmoL/L (3.5-5.1); Sodium 140 mmol/L (136-145)
[2022-07-09 10:10] LABS: Alanine Aminotransferase 20 U/L (12-78); Alkaline Phosphatase 102 U/L (38-126); Aspartate Amino Transferase 30 U/L (14-36); Bilirubin,Total 0.6 mg/dl (0.2-1.3); Blood Urea Nitrogen 21 mg/dl (7-17); Creatinine Clearance Estimated 35 mL/min (50-200); Estimated Glomerular Filt Rate 80 ml/min (>60); GFR (African American) 97 ML/MIN (>60)
[2022-07-09 10:11] LABS: Albumin/Globulin Ratio 1.5 (1.1-1.8); Anion Gap 9.6 mEq/L (5-15); Calcium 9.2 mg/dl (8.4-10.2); Carbon Dioxide 29 mmol/L (22.0-30.0); Globulin 3.3 g/dL (1.3-3.2); Glucose 131 mg/dl (74-100); Lipase 49 U/L (23-300); Total Protein,Serum 8.3 g/dl (6.3-8.2)
[2022-07-09 10:12] LABS: Basophils % 0.5 % (0.1-2.0); Eosinophils # 0.1 K/mm3 (0.0-0.4); Eosinophils % 1.4 % (0.1-12.0); Hematocrit 43.1 % (37.0-47.0); Hemoglobin 14.6 g/dL (12.2-16.2); Lymphocytes % 11.9 % (10-50); Mean Corpuscular HGB Conc 33.9 g/dL (31.8-35.4); Mean Corpuscular Hemoglobin 32.2 pg (27.0-31.2); Mean Corpuscular Volume 94.9 fl (81-99); Mean Platelet Volume 8.3 fl (7.4-10.4); Monocytes # 0.4 K/mm3 (0.1-1.0); Monocytes % 4.8 % (1.7-9.3); Neutrophils # 6.7 K/mm3 (1.8-7.8); Neutrophils % 81.3 % (37.0-80.0); Platelet Count 225 K/mm3 (142-424); Red Blood Count 4.54 M/mm3 (4.20-5.40); Red Cell Distribution Width 13.6 % (11.5-17.5); White Blood Count 8.3 K/mm3 (4.8-10.8)
[2022-07-09 10:29] LABS: Microscopic, Urine URINE MICROSCOPIC (MICROSCOPIC)
[2022-07-09 10:30] LABS: Appearance,Urine CLEAR (Clear); Bilirubin,Urine Negative (Negative); Blood, Urine Negative (Negative); Color,Urine YELLOW (Yellow); Glucose,Urine (UA) Negative (Negative); Ketones,Urine Negative (Negative); Leukocyte Esterase,Urine Negative (Negative); Nitrate,Urine POSITIVE (Negative); Protein,Urine Negative (Negative); Urobilinogen,Urine 0.2 EU/dl (0.2)
--- NOTE | 2022-07-09 10:36 | PC.NURSE ---
Rounded on patient; patient needed readjusted.
[2022-07-09 10:40] LABS: Bacteria,Urine 3+ /lpf; Squamous Epithelial Cell,Urine Occasional #/hpf (0-5); WBC,Urine Occasional #/hpf (0-3)
--- NOTE | 2022-07-09 11:23 | PC.NURSE ---
Patient back from CT
--- NOTE | 2022-07-09 11:54 | PC.NURSE ---
PT ASSISTED TO RESTROOM BY MERCEDEZ WAKEFIELD; NO COMPLICATIONS
--- NOTE | 2022-07-09 12:24 | PC.NURSE ---
Contacting [facility] for vascular surgeon consult; awaiting a call back.
--- NOTE | 2022-07-09 12:31 | PC.NURSE ---
Pt sleeping on her right side. Relative remains at bedside.
--- NOTE | 2022-07-09 13:00 | PC.NURSE ---
ER updated pt son on POC and waiting to hear back from [facility] for consult on ct findings
--- NOTE | 2022-07-09 13:01 | PC.NURSE ---
Contacting [facility] for a follow up on vascular surgery consult
--- NOTE | 2022-07-09 13:08 | PC.NURSE ---
awaiting call back from [facility] vascular surgeon, ER aware
--- NOTE | 2022-07-09 13:16 | PC.NURSE ---
Dr. Orozco speaking with [facility] vascular surgery team
--- NOTE | 2022-07-09 13:25 | PC.NURSE ---
SANG DIAZ at for update on POC
--- NOTE | 2022-07-09 13:25 | PC.NURSE ---
MD at bedside discussing disposition.
[2022-07-09 13:55] VITALS: BP 152/61; PULSE 65; RESP 16; TEMP 36.5; O2SAT 100
== END 2022-07-09 13:57 | disposition home or self-care (01) ==
PROVIDERS: Emergency Provider Emergency Medicine; PCP Emergency Medicine
DX: N30.00 Acute cystitis without hematuria (principal); I71.00 Dissection of unspecified site of aorta; N81.10 Cystocele, unspecified; I25.10 Atherosclerotic heart disease of native coronary artery without angina pectoris; K64.9 Unspecified hemorrhoids; Z90.710 Acquired absence of both cervix and uterus; I10 Essential (primary) hypertension; J30.9 Allergic rhinitis, unspecified; F17.210 Nicotine dependence, cigarettes, uncomplicated
CPT/HCPCS: 74177; 80053; 81001; 83690; 85025; 87086; 87088; 87186; 99285; Q9967

== ENCOUNTER 2022-10-18 20:17 | Emergency (ER) | payer MEDICARE, BC, SELFPAY ==
[2022-10-18 20:28] VITALS: BP 142/67; PULSE 73; RESP 16; TEMP 36.6; O2SAT 98; BMI 21.5
--- NOTE | 2022-10-18 20:31 | CT_ITS ---
PROCEDURE INFORMATION: Exam: CT Abdomen And Pelvis With Contrast Exam date and time: 10/18/2022 10:02 PM Age: 82 years old Clinical indication: Abdominal pain; Generalized; Additional info: Abd pain TECHNIQUE: Imaging protocol: Computed tomography of the abdomen and pelvis with contrast. Radiation optimization: All CT scans at this facility use at least one of these dose optimization techniques: automated exposure control; mA and/or kV adjustment per patient size (includes targeted exams where dose is matched to clinical indication); or iterative reconstruction. Contrast material: ISOVUE; Contrast volume: 75 ml; Contrast route: IV; REPORTING DATA: Count of CT and Cardiac NM exams in prior 12 months: This patient has received 3 known CTs and 0 known cardiac nuclear medicine studies in the 12 months prior to the current study. COMPARISON: CT ABDOMEN PELVIS W CON 07/09/2022 11:17 AM FINDINGS: Liver: Normal. No mass. Gallbladder and bile ducts: No calcified stones. No ductal dilation. Pancreas: Normal enhancement. No ductal dilation. Spleen: No splenomegaly. Adrenal glands: No mass. Kidneys and ureters: Punctate nonobstructing left renal calcification without hydronephrosis. Stomach and bowel: Scattered colonic diverticula. Short-segment wall thickening of the descending colon with adjacent stranding. Appendix: No evidence of appendicitis. Intraperitoneal space: No significant fluid collection. No free air. Vasculature: Calcified aortic atherosclerosis. No aneurysm. 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 Lymph nodes: No enlarged lymph nodes. Urinary bladder: No acute abnormality. Reproductive: No acute abnormality. Bones/joints: No acute fracture. Soft tissues: No soft tissue swelling. IMPRESSION: Short-segment wall thickening of the descending colon with adjacent stranding which could be seen with recurrent or residual colitis however does raise concern for potential mucosal mass.
--- NOTE | 2022-10-18 21:02 | HMH.EDABDPAI ---
Discharge Plan Disposition Patient Disposition: Home, Self-Care Prescriptions Prescriptions: New ondansetron HCl 4 mg Tablet 4 mg PO Q8H PRN (Reason: Nausea) Qty: 20 0RF metronidazole 500 mg Tablet 500 mg PO TID Qty: 21 0RF cefdinir [cefdinir] 300 mg capsule 300 mg PO BID Qty: 14 0RF No Action losartan 50 mg tablet 50 mg PO DAILY Qty: 30 5RF amlodipine 5 mg tablet 5 mg PO DAILY Qty: 30 5RF hydrochlorothiazide 12.5 mg tablet See Rx Instructions .Route .COMPLEX Qty: 30 5RF Rx Instructions: Take 1 tablet by mouth once daily aspirin [Adult Low Dose Aspirin] 81 mg tablet,delayed release (DR/EC) 81 mg PO DAILY PRN (Reason: thinner) nitrofurantoin macrocrystal 100 mg capsule 100 mg PO BID 7 Days Qty: 14 0RF Rx Instructions: must administer with a meal/food pravastatin 10 mg tablet 10 mg PO DAILY Qty: 90 3RF flecainide 100 mg tablet See Rx Instructions .ROUTE .COMPLEX Qty: 180 0RF Dose Instruction: TAKE 1 TABLET BY MOUTH EVERY 12 HOURS Rx Instructions: TAKE 1 TABLET BY MOUTH EVERY 12 HOURS triamcinolone acetonide 0.1 % cream 1 applic TOPICAL BID Qty: 80 0RF hydrocortisone [Anusol-HC] 2.5 % cream with perineal applicator 1 applic RC BID PRN (Reason: hemorrhoids) Qty: 30 0RF montelukast 10 MG tablet 10 mg PO DAILY cefadroxil 500 mg capsule 500 mg PO BID 5 Days Qty: 10 0RF Referrals Follow up/Referrals: Ganesh Fonseca MD [Primary Care Provider] - See instructions Clinical Impressions Clinical Impression: Colitis, Superior mesenteric artery stenosis Instructions Patient Instructions: DI for Colitis Discharge ED Provider: Raymundo (ED)Ganesh Abdominal Pain HPI General Chief Complaint: Abdominal Pain Stated Complaint: stomach pain Time Seen by Provider: 10/18/22 20:45 Mode of Arrival: Family Vehicle Source of Information: Patient and Medical Record Limitations: No Limitations Description of Symptoms (Recalled from ER Triage Doc. by RN): 82 YO FEMALE PRESENTS WITH CC OF ABD 'CRAMPING' THAT BEGAN ABOUT 2 HOURS AGO. ACCORDING TO THE PATIENT'S SON, SHE TOLD HIM NOTHING MOVING IN AND NOTHING MOVING OUT . DENIES NEW MEDICATIONS OR INJURIES. FLATULENCE PRESENT History of Present Illness HPI narrative: pt with abd pain over the last few hrs with hx of same in 07/07 - pt with no vomiting or fever - MD complaint: abdominal pain Onset (ago): hour(s) Consistency: intermittent Location: LLQ Severity: moderate Associated symptoms: denies other symptoms Related Data Home Medications Medication Instructions Recorded Confirmed aspirin 81 mg tablet,delayed 81 mg PO DAILY PRN thinner 03/04/19 07/13/22 release (Adult Low Dose Aspirin) montelukast 10 mg tablet 10 mg PO DAILY . 11/12/21 07/13/22 Previous Rx's Medication Instructions Recorded pravastatin 10 mg tablet 10 mg PO DAILY . #90 tabs 11/16/21 amlodipine 5 mg tablet 5 mg PO DAILY . #30 tabs 02/02/22 hydrochlorothiazide 12.5 mg tablet See Rx Instructions .Route 02/02/22 .COMPLEX . #30 tabs losartan 50 mg tablet 50 mg PO DAILY . #30 tabs 02/02/22 nitrofurantoin macrocrystal 100 mg 100 mg PO BID 7 days #14 caps 03/18/22 capsule cefadroxil 500 mg capsule 500 mg PO BID 5 days #10 caps 07/09/22 flecainide 100 mg tablet See Rx Instructions .Route 08/08/22 .COMPLEX #180 tabs triamcinolone acetonide 0.1 % 1 applic topical BID #80 grams 08/15/22 topical cream hydrocortisone 2.5 % topical cream 1 applic WA BID PRN hemorrhoids 10/14/22 with perineal applicator #30 grams (Anusol-HC) cefdinir 300 mg capsule 300 mg PO BID #14 caps 10/18/22 metronidazole 500 mg tablet 500 mg PO TID #21 tabs 10/18/22 ondansetron HCl 4 mg tablet 4 mg PO Q8H PRN Nausea #20 tabs 10/18/22 Allergies Allergy/AdvReac Type Severity Reaction Status Date / Time shellfish derived AdvReac Intermediate breathing Verified 07/13/22 13:51 difficulties bisoprolol AdvReac rash, V
[2022-10-18 21:06] LABS: Basophils % 0.3 % (0.1-2.0); Eosinophils # 0.3 K/mm3 (0.0-0.4); Eosinophils % 3.2 % (0.1-12.0); Hematocrit 42.2 % (37.0-47.0); Hemoglobin 13.9 g/dL (12.2-16.2); Lymphocytes # 1.3 K/mm3 (0.7-4.5); Lymphocytes % 16.8 % (10-50); Mean Corpuscular Hemoglobin 31.5 pg (27.0-31.2); Mean Corpuscular Volume 95.3 fl (81-99); Mean Platelet Volume 7.9 fl (7.4-10.4); Monocytes # 0.3 K/mm3 (0.1-1.0); Monocytes % 3.8 % (1.7-9.3); Neutrophils % 75.9 % (37.0-80.0); Platelet Count 193 K/mm3 (142-424); Red Blood Count 4.43 M/mm3 (4.20-5.40); Red Cell Distribution Width 13.8 % (11.5-17.5); White Blood Count 7.9 K/mm3 (4.8-10.8)
--- NOTE | 2022-10-18 21:15 | PC.NURSE ---
pt walked to restroom with her son at side
--- NOTE | 2022-10-18 21:17 | PC.NURSE ---
pt arrived back to room
[2022-10-18 21:28] LABS: Alanine Aminotransferase 21 U/L (12-78); Albumin Level 4.7 g/dl (3.5-5.0); Albumin/Globulin Ratio 1.5 (1.1-1.8); Alkaline Phosphatase 115 U/L (38-126); Amylase 112 U/L (30-110); Anion Gap 16.4 mEq/L (5-15); Aspartate Amino Transferase 35 U/L (14-36); Bilirubin,Total 0.5 mg/dl (0.2-1.3); Blood Urea Nitrogen 26 mg/dl (7-17); Calcium 9.1 mg/dl (8.4-10.2); Carbon Dioxide 24 mmol/L (22.0-30.0); Chloride 105 mmol/L (98-107); Creatinine Clearance Estimated 35 mL/min (50-200); Estimated Glomerular Filt Rate 53 ml/min (>60); GFR (African American) 64 ML/MIN (>60); Globulin 3.2 g/dL (1.3-3.2); Glucose 130 mg/dl (74-100); Lipase 45 U/L (23-300); Potassium 3.4 mmoL/L (3.5-5.1); Sodium 142 mmol/L (136-145); Total Protein,Serum 7.9 g/dl (6.3-8.2)
--- NOTE | 2022-10-18 21:59 | PC.NURSE ---
pt transported to ct scan
--- NOTE | 2022-10-18 22:10 | PC.NURSE ---
pt returned from ct scan
[2022-10-18 22:49] LABS: Microscopic, Urine URINE MICROSCOPIC (MICROSCOPIC)
--- NOTE | 2022-10-18 22:57 | PC.NURSE ---
PATIENT ADMITTED TO [address] KING WITH ADMITTING DX OF COLITIS.
--- NOTE | 2022-10-18 22:59 | PC.NURSE ---
covid swab sent lab
--- NOTE | 2022-10-18 22:59 | PC.NURSE ---
checked on pt nothing needed at this time, son at bedside
[2022-10-18 23:01] LABS: Coronavirus 19, PCR Not Detected (NotDetected); Influenza A, PCR Not Detected (NotDetected); Influenza B, PCR Not Detected (NotDetected)
[2022-10-18 23:02] LABS: Appearance,Urine CLEAR (Clear); Bilirubin,Urine Negative (Negative); Blood, Urine Negative (Negative); Color,Urine YELLOW (Yellow); Glucose,Urine (UA) Negative (Negative); Ketones,Urine Negative (Negative); Leukocyte Esterase,Urine Negative (Negative); Nitrate,Urine POSITIVE (Negative); Protein,Urine Negative (Negative); Urobilinogen,Urine 0.2 EU/dl (0.2)
[2022-10-18 23:02] LABS: C-Reactive Protein 0.9 mg/L (0-4)
--- NOTE | 2022-10-18 23:04 | PC.NURSE ---
pt's son has made several comments about the care that his mother has received and what test has been ordered. Raymundo currently at bedside explaining test and scan results
[2022-10-18 23:12] LABS: Lactic Acid 1.2 mmol/L (0.7-2.1)
[2022-10-18 23:16] VITALS: BP 135/81; PULSE 70; RESP 16; TEMP 36.6; O2SAT 98
[2022-10-18 23:20] LABS: Bacteria,Urine 3+ /lpf; Squamous Epithelial Cell,Urine Occasional #/hpf (0-5)
[2022-10-18 23:29] LABS: Erythrocyte Sedimentation Rate 17 mm/hr (0-30)
== END 2022-10-18 23:26 | disposition home or self-care (01) ==
PROVIDERS: Emergency Provider Emergency Medicine; PCP Emergency Medicine
DX: K55.1 Chronic vascular disorders of intestine (principal); K52.9 Noninfective gastroenteritis and colitis, unspecified; I10 Essential (primary) hypertension
CPT/HCPCS: 74177; 80053; 81001; 82150; 83605; 83690; 85025; 85651; 86140; 87086; 87088; 87186; 87635; 87636; 96361; 96374; 96375; 99285; C9803; J0696; J2405; Q9967; U0003; U0005

== ENCOUNTER 2022-10-27 11:12 | Day surgery (SDC) | payer MEDICARE, BC, SELFPAY ==
[2022-10-27] VITALS (12 sets, daily range): BP systolic 116–139; BP diastolic 57–68; PULSE 58–73; RESP 16–18; TEMP 36.6; O2SAT 93–98; BMI 20.9
--- NOTE | 2022-10-27 07:14 | IR_ITS ---
APPROVED REPORT Patient Location: Inpatient Marketing [facility] Consultant: JESSICA Tovar RT (R) PROCEDURES Bilateral selective renal angiography Selective engagement of the celiac artery with angiography Selective engagement of the superior mesenteric artery with angiography INDICATION Mesenteric ischemia, Superior mesenteric atherosclerosis Informed consent was obtained prior to the procedure. COMPLICATIONS None Estimated Blood Loss: Less than 10 mls TECHNIQUE One percent lidocaine used to anesthetize the right anterior aspect of the wrist. The right radial artery was accessed via the Seldinger technique. A 6 Chinese sheath was placed in the right radial artery. 150 mg magnesium sulfate, 800 mcg of nitroglycerin, 1mg Lidocaine and 5000 U Heparin were given through the arterial sheath. A 6 Chinese JR4 catheter was used to perform bilateral selective renal angiography as well as selective engagement of the celiac artery and superior mesenteric artery all with selective angiography. At the end of the procedure the apparatus was removed the sheath was removed good hemostasis was achieved using TR banding patient was transferred to the postop putting in stable addition ANGIOGRAPHIC RESULTS Celiac artery is normal Superior mesenteric artery has a proximal eccentric long calcified 30% nonflow limiting stenosis Right renal artery is singular and normal Left renal artery is singular and has a proximal 20 to 30% eccentric stenosis IMPRESSION Mild nonflow limiting atherosclerotic disease as described above PLAN 1. Treatment of nonischemic colitis 2. Standard risk factor modification Electronically signed by : Keanu Villela MD 10/27/2022 14:06:28
[2022-10-27 11:41] LABS: Basophils % 0.7 % (0.1-2.0); Eosinophils # 0.1 K/mm3 (0.0-0.4); Eosinophils % 2.6 % (0.1-12.0); Hemoglobin 13.1 g/dL (12.2-16.2); Lymphocytes # 1.1 K/mm3 (0.7-4.5); Lymphocytes % 23.9 % (10-50); Mean Corpuscular HGB Conc 31.9 g/dL (31.8-35.4); Mean Corpuscular Hemoglobin 30.7 pg (27.0-31.2); Mean Corpuscular Volume 96.4 fl (81-99); Mean Platelet Volume 7.8 fl (7.4-10.4); Monocytes # 0.3 K/mm3 (0.1-1.0); Monocytes % 6.4 % (1.7-9.3); Neutrophils # 3.1 K/mm3 (1.8-7.8); Neutrophils % 66.3 % (37.0-80.0); Platelet Count 231 K/mm3 (142-424); Red Blood Count 4.25 M/mm3 (4.20-5.40); Red Cell Distribution Width 13.8 % (11.5-17.5); White Blood Count 4.6 K/mm3 (4.8-10.8)
[2022-10-27 11:47] LABS: Potassium 3.1 mmoL/L (3.5-5.1); Sodium 139 mmol/L (136-145)
[2022-10-27 11:50] LABS: Carbon Dioxide 28 mmol/L (22.0-30.0)
[2022-10-27 11:51] LABS: Calcium 8.7 mg/dl (8.4-10.2); Glucose 118 mg/dl (74-100)
[2022-10-27 11:55] LABS: Blood Urea Nitrogen 12 mg/dl (7-17); Creatinine Clearance Estimated 34 mL/min (50-200); Estimated Glomerular Filt Rate 80 ml/min (>60); GFR (African American) 97 ML/MIN (>60)
[2022-10-27 12:05] LABS: INR 1.03 (0.9-1.1); Prothrombin Time 11.1 seconds (10.1-12.5)
[2022-10-27 14:00] LABS: Anion Gap 12.1 mEq/L (5-15); Chloride 102 mmol/L (98-107)
== END 2022-10-27 16:46 | disposition home or self-care (01) ==
PROVIDERS: PCP Emergency Medicine; Visit Provider Internal Medicine
DX: E78.2 Mixed hyperlipidemia (principal); I10 Essential (primary) hypertension; I25.10 Atherosclerotic heart disease of native coronary artery without angina pectoris; I48.0 Paroxysmal atrial fibrillation; K52.9 Noninfective gastroenteritis and colitis, unspecified; K55.1 Chronic vascular disorders of intestine; I25.83 Coronary atherosclerosis due to lipid rich plaque; Z79.899 Other long term (current) drug therapy; I70.1 Atherosclerosis of renal artery; I77.1 Stricture of artery
CPT/HCPCS: 36247; 36252; 36415; 75726; 80048; 85025; 85610; 99152; 99153; C1725; C1769; J1644; Q9967

== ENCOUNTER → 2023-03-07 11:24 | Outpatient (CLI) | payer MEDICARE, BC, SELFPAY | PROVIDERS: PCP Emergency Medicine; Visit Provider Emergency Medicine | DX: R10.9 Unspecified abdominal pain (principal); Z79.899 Other long term (current) drug therapy; B96.29 Other Escherichia coli [E. coli] as the cause of diseases classified elsewhere | CPT/HCPCS: 87086 ==

== ENCOUNTER 2023-05-31 15:16 | Outpatient (CLI) | payer MEDICARE, BC, SELFPAY | END 2023-05-31 23:59 | LOC: RT 15:19 | PROVIDERS: PCP Internal Medicine; Visit Provider Nurse Practitioner Family | DX: R00.2 Palpitations (principal); I48.0 Paroxysmal atrial fibrillation; I11.9 Hypertensive heart disease without heart failure; I25.10 Atherosclerotic heart disease of native coronary artery without angina pectoris | CPT/HCPCS: 93270 ==

== ENCOUNTER 2023-09-13 13:49 | Outpatient (CLI) | payer MEDICARE, BC, SELFPAY ==
[2023-09-13 15:29] LABS: Basophils % 0.9 % (0.1-2.0); Eosinophils # 0.1 K/mm3 (0.0-0.4); Eosinophils % 2.2 % (0.1-12.0); Hematocrit 39.5 % (37.0-47.0); Hemoglobin 12.8 g/dL (12.2-16.2); Lymphocytes # 1.1 K/mm3 (0.7-4.5); Lymphocytes % 26.8 % (10-50); Mean Corpuscular HGB Conc 32.4 g/dL (31.8-35.4); Mean Corpuscular Hemoglobin 32.4 pg (27.0-31.2); Mean Platelet Volume 8.2 fl (7.4-10.4); Monocytes # 0.3 K/mm3 (0.1-1.0); Monocytes % 6.8 % (1.7-9.3); Neutrophils # 2.5 K/mm3 (1.8-7.8); Neutrophils % 63.3 % (37.0-80.0); Platelet Count 184 K/mm3 (142-424); Red Blood Count 3.95 M/mm3 (4.20-5.40); Red Cell Distribution Width 14.5 % (11.5-17.5); White Blood Count 3.9 K/mm3 (4.8-10.8)
[2023-09-13 15:40] LABS: Alanine Aminotransferase 18 U/L (12-78); Albumin Level 4.5 g/dl (3.5-5.0); Alkaline Phosphatase 76 U/L (38-126); Anion Gap 13.6 mEq/L (5-15); Aspartate Amino Transferase 27 U/L (14-36); Bilirubin,Direct 0.1 mg/dl (0.0-0.4); Bilirubin,Indirect 0.6 mg/dL (0.0-0.9); Bilirubin,Total 0.7 mg/dl (0.2-1.3); Bilirubin,Unconjugated 0.5 mg/dL (0.0-1.1); Blood Urea Nitrogen 18 mg/dl (7-17); Calcium 9.5 mg/dl (8.4-10.2); Carbon Dioxide 27 mmol/L (22.0-30.0); Chloride 105 mmol/L (98-107); Chol/HDL Ratio 2.4 (1-3.5); Cholesterol 218 mg/dl (140-200); Estimated Glomerular Filt Rate 53 ml/min (>60); GFR (African American) 64 ML/MIN (>60); Glucose 116 mg/dl (74-100); HDL Cholesterol 92 mg/dl (40-60); Potassium 3.6 mmoL/L (3.5-5.1); Sodium 142 mmol/L (136-145); Total Protein,Serum 7.2 g/dl (6.3-8.2); Triglycerides 95 mg/dl (30-150); VLDL Cholesterol 19 mg/dL (0-40)
[2023-09-13 15:52] LABS: Direct LDL Cholesterol 112.64 mg/dL (100-129)
[2023-09-13 15:54] LABS: Free T4 (Free Thyroxine) 1.13 ng/dl (0.78-2.19)
== END 2023-09-13 23:59 | disposition home or self-care (01) ==
LOC: LAB 13:51
PROVIDERS: Visit Provider Internal Medicine
DX: I11.9 Hypertensive heart disease without heart failure (principal); I25.10 Atherosclerotic heart disease of native coronary artery without angina pectoris; R00.2 Palpitations; I48.0 Paroxysmal atrial fibrillation; E78.2 Mixed hyperlipidemia
CPT/HCPCS: 36415; 80048; 80061; 80076; 83735; 84439; 84443; 85025

== ENCOUNTER 2024-09-10 11:38 | Outpatient (CLI) | payer MEDICARE, BC, SELFPAY ==
[2024-09-10 19:20] LABS: Basophils % 0.6 % (0.1-2.0); Eosinophils # 0.1 Kmm3 (0.0-0.4); Eosinophils % 2.4 % (0.1-12.0); Hematocrit 38.2 % (37.0-47.0); Hemoglobin 12.6 g/dL (12.2-16.2); Lymphocytes # 1.4 K/mm3 (0.7-4.5); Lymphocytes % 25.4 % (10-50); Mean Corpuscular Hemoglobin 32.2 pg (27.0-31.2); Mean Corpuscular Volume 97.7 fl (81-99); Mean Platelet Volume 10.5 fl (7.4-10.4); Monocytes # 0.4 K/mm3 (0.1-1.0); Monocytes % 7.5 % (1.7-9.3); Neutrophils # 3.4 K/mm3 (1.8-7.8); Neutrophils % 63.9 % (37.0-80.0); Nucleated Red Blood Cells # 0 10^3/uL; Nucleated Red Blood Cells % 0 %; Platelet Count 201 K/mm3 (142-424); Red Blood Count 3.91 M/mm3 (4.20-5.40); Red Cell Distribution Width 13.2 % (11.5-17.5); Red Cell Distribution Width-SD 47.3 fL; White Blood Count 5.3 K/mm3 (4.8-10.8)
[2024-09-10 19:52] LABS: Alanine Aminotransferase 26 U/L (12-78); Albumin Level 4.2 g/dl (3.5-5.0); Albumin/Globulin Ratio 1.6 (1.1-1.8); Alkaline Phosphatase 73 U/L (38-126); Anion Gap 11.1 mEq/L (5-15); Aspartate Amino Transferase 49 U/L (14-36); Bilirubin,Total 0.8 mg/dl (0.2-1.3); Blood Urea Nitrogen 35 mg/dl (7-17); Calcium 9.1 mg/dl (8.4-10.2); Carbon Dioxide 28 mmol/L (22.0-30.0); Chloride 102 mmol/L (98-107); Chol/HDL Ratio 3.1 (1-3.5); Cholesterol 178 mg/dl (140-200); Estimated Glomerular Filt Rate 36 ml/min (>60); GFR (African American) 43 ML/MIN (>60); Globulin 2.7 g/dL (1.3-3.2); Glucose 107 mg/dl (74-100); HDL Cholesterol 58 mg/dl (40-60); Potassium 4.1 mmoL/L (3.5-5.1); Sodium 137 mmol/L (136-145); Total Protein,Serum 6.9 g/dl (6.3-8.2); Triglycerides 106 mg/dl (30-150); VLDL Cholesterol 21 mg/dL (0-40)
[2024-09-10 20:02] LABS: Direct LDL Cholesterol 85.77 mg/dL (100-129)
[2024-09-10 20:17] LABS: Thyroid Stimulating Hormone 0.87 uIU/mL (0.465-4.68)
== END 2024-09-10 23:59 | disposition home or self-care (01) ==
LOC: LAB.DROPOF 09-12 11:28
PROVIDERS: PCP Family Medicine; Visit Provider Family Medicine
DX: I25.10 Atherosclerotic heart disease of native coronary artery without angina pectoris (principal); I10 Essential (primary) hypertension; I48.0 Paroxysmal atrial fibrillation; R53.83 Other fatigue; N39.0 Urinary tract infection, site not specified
CPT/HCPCS: 80053; 80061; 84443; 85025; 87086; 87088; 87186

== ENCOUNTER 2024-09-29 01:11 | Emergency (ER) | payer MEDICARE, BC, SELFPAY ==
--- NOTE | 2024-09-29 01:08 | PC.NURSE ---
Pt's glucose was 166
[2024-09-29 01:11] VITALS: BP 180/62; PULSE 59; RESP 13; TEMP 36.7; O2SAT 97; BMI 20.1
--- NOTE | 2024-09-29 01:23 | CT_ITS ---
PROCEDURE INFORMATION: Exam: CTA Abdomen and Pelvis With Contrast Exam date and time: 09/29/2024 1:51 AM Age: 84 years old Clinical indication: Other: Found down HX aaa not hypotensive TECHNIQUE: Imaging protocol: Computed tomographic angiography of the abdomen and pelvis with contrast. Exam focused on the arteries. 3D rendering (Not supervised by radiologist): MIP and/or 3D reconstructed images were created by the technologist. Radiation optimization: All CT scans at this facility use at least one of these dose optimization techniques: automated exposure control; mA and/or kV adjustment per patient size (includes targeted exams where dose is matched to clinical indication); or iterative reconstruction. Contrast material: ISOUVE 370; Contrast volume: 80 ml; Contrast route: INTRAVENOUS (IV); COMPARISON: CT ABDOMEN PELVIS W CON 10/18/2022 10:02 PM FINDINGS: Limitations: Mild motion artifact. Lungs: Lung bases and chest findings reported separately. Aorta: Diffuse atherosclerotic calcification of the abdominal aorta. Stable distal abdominal aorta irregular atherosclerotic plaque and minimal ectasia. No acute abdominal aortic aneurysm or dissection. Celiac trunk and mesenteric arteries: Patent enhancing celiac artery, SMA and NALLELY. Moderate proximal SMA stenosis. Renal arteries: Patent enhancing bilateral renal arteries. [id number] left renal artery stenosis. Right iliac arteries: Patent enhancing diffusely calcified right iliac arteries. Left iliac arteries: Patent enhancing diffusely calcified left iliac arteries. 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 Liver: No acute abnormality. No mass. Gallbladder and biliary ducts: Unremarkable. No calcified stones. No ductal dilation. Pancreas: No acute abnormality. No mass. No ductal dilation. Spleen: No acute abnormality. Adrenal glands: No significant or acute abnormality. Kidneys and ureters: Grossly normal bilateral renal enhancement. No hydronephrosis or hydroureter. Stomach and bowel: No significant or disproportionate large or small bowel distention. Colonic diverticulosis without CT evidence of diverticulitis. Appendix: No findings to suggest acute appendicitis. Intraperitoneal space: No significant fluid collection. No free air. Lymph nodes: No enlarged lymph nodes. Urinary bladder: Unremarkable. No mass. Reproductive: Previous hysterectomy. Bones/joints: No acute fracture. Soft tissues: No significant soft tissue abnormalities. IMPRESSION: 1. No acute abdominal aortic aneurysm or dissection. 2. Moderate proximal SMA stenosis. 3. Geog-kj-vqknljjq left renal artery stenosis. 4. 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 5. Colonic diverticulosis without CT evidence of diverticulitis.
--- NOTE | 2024-09-29 01:23 | CT_ITS ---
PROCEDURE INFORMATION: Exam: CT Head Without Contrast Exam date and time: 09/29/2024 1:46 AM Age: 84 years old Clinical indication: Stroke-like symptoms; Altered mental status/memory loss; Additional info: Possible stroke TECHNIQUE: Imaging protocol: Computed tomography of the head without contrast. Radiation optimization: All CT scans at this facility use at least one of these dose optimization techniques: automated exposure control; mA and/or kV adjustment per patient size (includes targeted exams where dose is matched to clinical indication); or iterative reconstruction. Other technique: STROKE PROTOCOL was implemented. COMPARISON: CT HEAD/BRAIN WO CON 11/03/2021 8:31 PM FINDINGS: Brain: Moderate to severe brain volume loss with severe chronic ischemic changes. Old bilateral basal ganglia lacunar infarcts. No subtle area of low attenuation involving the anterior left insular cortex series 3, image 30. No hemorrhage. No mass effect or shift. Cerebral ventricles: No ventriculomegaly. Paranasal sinuses: Visualized sinuses are unremarkable. No fluid levels. Mastoid air cells: Visualized mastoid air cells are well aerated. Bones: Unremarkable. No acute fracture. Soft tissues: Unremarkable. IMPRESSION: Possible early left insular cortex infarct. Please see the CT angiogram for additional discussion. ASSESSMENT: ASPECTS ([place] Stroke Program Early CT Score) is 9.
--- NOTE | 2024-09-29 01:23 | CT_ITS ---
PROCEDURE INFORMATION: Exam: CTA Head With Contrast, Arteriography Exam date and time: 09/29/2024 1:48 AM Age: 84 years old Clinical indication: Stroke-like symptoms; Altered mental status/memory loss; Additional info: Possible stroke, minimal responsive, ? R face droop TECHNIQUE: Imaging protocol: Computed tomographic angiography of the head with contrast. Exam focused on the arteries. 3D rendering (Not supervised by radiologist): MIP and/or 3D reconstructed images were created by the technologist. Radiation optimization: All CT scans at this facility use at least one of these dose optimization techniques: automated exposure control; mA and/or kV adjustment per patient size (includes targeted exams where dose is matched to clinical indication); or iterative reconstruction. Contrast material: ISOUVE 370; Contrast volume: 80 ml; Contrast route: INTRAVENOUS (IV); COMPARISON: CT HEAD/BRAIN WO CON 09/29/2024 1:46 AM FINDINGS: ANTERIOR CIRCULATION: Right internal carotid artery: Mild atherosclerotic changes of the right cavernous carotid artery. Right middle cerebral artery: No occlusion or significant stenosis. No aneurysm. Right anterior cerebral artery: No occlusion or significant stenosis. No aneurysm. Left internal carotid artery: Mild atherosclerotic changes of the left cavernous carotid artery. Left middle cerebral artery: Abrupt occlusion of the left MCA M1 segment beginning at its origin. Faint opacification of M2 and distal branch vessels Left anterior cerebral artery: No occlusion or significant stenosis. No aneurysm. POSTERIOR CIRCULATION: Right vertebral artery: No occlusion or significant stenosis. No aneurysm. Left vertebral artery: No occlusion or significant stenosis. No aneurysm. Basilar artery: No occlusion or significant stenosis. No aneurysm. Right posterior cerebral artery: Mild atherosclerosis of the right [employer]INEER. Left posterior cerebral artery: Mild atherosclerosis of the left FI[employer] ENGINEER. Veins: Dural venous sinuses are intact. Brain: Subtle low-attenuation appearance of the left insular cortex Cerebral ventricles: No ventriculomegaly. Bones/joints: Unremarkable. No acute fracture. Soft tissues: Unremarkable. 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
--- NOTE | 2024-09-29 01:23 | CT_ITS ---
PROCEDURE INFORMATION: Exam: CTA Chest With Contrast Exam date and time: 09/29/2024 1:51 AM Age: 84 years old Clinical indication: Other: Found down HX aaa not hypotensive TECHNIQUE: Imaging protocol: Computed tomographic angiography of the chest with contrast. Exam focused on the arteries. 3D rendering (Not supervised by radiologist): MIP and/or 3D reconstructed images were created by the technologist. Radiation optimization: All CT scans at this facility use at least one of these dose optimization techniques: automated exposure control; mA and/or kV adjustment per patient size (includes targeted exams where dose is matched to clinical indication); or iterative reconstruction. Contrast material: ISOUVE 370; Contrast volume: 80 ml; Contrast route: INTRAVENOUS (IV); COMPARISON: CT ANGIO CHEST 09/29/2024 1:51 AM FINDINGS: Limitations: Mild motion artifact. Pulmonary arteries: Suboptimal pulmonary artery opacification on aortic arterial phase scanning. No definite vascular intraluminal filling defects to suggest acute pulmonary embolism. Aorta: Atherosclerotic tortuosity and calcification of the thoracic aorta. No aortic aneurysm or dissection. Thyroid: Redemonstrated bilateral thyroid nodules including 2.3 cm left thyroid lobe nodule. Lungs: Minimal to mild interstitial pulmonary edema and bilateral atelectasis. Pleural spaces: No significant pleural effusion. No pneumothorax. Heart: Heart size is enlarged. Coronary arteries: Coronary artery calcifications. Lymph nodes: Small nonspecific mediastinal lymph nodes. Bones/joints: Thoracic spondylosis and degenerative bony changes. Soft tissues: No significant soft tissue abnormalities. IMPRESSION: 1. No aortic aneurysm or dissection. 2. Cardiomegaly. 3. Minimal to mild interstitial pulmonary edema and bilateral atelectasis. 4. Atherosclerotic vascular disease including coronary artery disease.
--- NOTE | 2024-09-29 01:23 | ECG_ITS ---
APPROVED REPORT Exam: Resting ECG HR:57 bpm ECG Measurements Heart Rate 57 AXES MT 146 P 256 QRSd 102 QRS 31 QT 533 T 163 QTc [address] DEVIATION AND MODERATE T-WAVE ABNORMALITY, CONSIDER ANTEROLATERAL ISCHEMIA [-0.1+ mV T-WAVE IN V3-V6] ST DEVIATION AND MODERATE T-WAVE ABNORMALITY, CONSIDER INFERIOR ISCHEMIA [-0.1+ mV T-WAVE IN II/aVF] No STEMI Electronically signed by : MAY DENSON, 09/29/2024 06:13:58
--- NOTE | 2024-09-29 01:23 | CT_ITS ---
PROCEDURE INFORMATION: Exam: CTA Neck With Contrast Exam date and time: 09/29/2024 1:48 AM Age: 84 years old Clinical indication: Stroke-like symptoms; Altered mental status/memory loss; Right facial droop; Additional info: Possible stroke, minimal responsive, ? R face droop TECHNIQUE: Imaging protocol: Computed tomographic angiography of the neck with contrast. Exam focused on the cervical segments of the vasculature. 3D rendering (Not supervised by radiologist): MIP and/or 3D reconstructed images were created by the technologist. Radiation optimization: All CT scans at this facility use at least one of these dose optimization techniques: automated exposure control; mA and/or kV adjustment per patient size (includes targeted exams where dose is matched to clinical indication); or iterative reconstruction. Contrast material: ISOUVE 370; Contrast volume: 80 ml; Contrast route: INTRAVENOUS (IV); COMPARISON: CT CERVICAL SPINE WO CON 11/03/2021 8:31 PM FINDINGS: Right common carotid artery: Mild atherosclerotic changes of the right carotid bulb. Right internal carotid artery: Mild atherosclerosis of the right ICA. Right external carotid artery: No occlusion or stenosis of the origin. Left common carotid artery: Mild atherosclerosis of the left common carotid artery. Moderate atherosclerosis of the left carotid bulb without significant stenosis. Left internal carotid artery: Partial retropharyngeal course of the left ICA. Left external carotid artery: Moderate to severe atherosclerosis of the origin of the left ECA with short-segment 50% stenosis. The post stenotic segment is well opacifed. Right vertebral artery: Atherosclerosis of the origin of the right vertebral artery without significant stenosis. Left vertebral artery: No stenosis. No dissection or occlusion. Aorta: [id number] atherosclerosis of the aorta. Thyroid: Nonfocal heterogeneous and lobular thyroid with coarse calcifications possibly reflecting early multinodular goiter. Soft tissues: Normal. No significant soft tissue swelling. Bones/joints: DJD. Lungs: Emphysematous changes of the upper lung schmitz. Bilateral mild atelectatic changes. IMPRESSION: No acute findings. Atherosclerotic disease. Left ECA origin 50% stenosis. REFERENCES: NASCET CRITERIA. The degree of stenosis in the cervical segment of the internal carotid artery is based on NASCET criteria. Normal is no stenosis. Mild is less than 50% stenosis. Moderate is 50-69% stenosis. Severe is 70% to 99% stenosis. Total occlusion is no detectable patent lumen.
[2024-09-29 01:30] VITALS: BP 156/64; PULSE 54; O2SAT 95
--- NOTE | 2024-09-29 01:33 | ED_ITS ---
Discharge Plan Disposition Patient Disposition: Xfer Short-Term Hosp Condition: Critical Chief Complaint: Altered Mental Status Prescriptions Prescriptions: No Action aspirin [Adult Low Dose Aspirin] 81 mg tablet,delayed release (DR/EC) 81 mg PO DAILY Qty: 30 5RF diclofenac sodium [Arthritis Pain (diclofenac)] 1 % gel 2 g topical BID Qty: 50 2RF metoprolol succinate [Toprol XL] 25 mg tablet extended release 24 hr 25 mg PO DAILY Qty: 30 5RF levocetirizine [Xyzal] 5 mg tablet 5 mg PO DAILY Qty: 30 2RF estradiol [Estrace] 0.01 % (0.1 mg/gram) cream 0.5 g vaginal .Twice weekly Qty: 42.5 2RF hydrochlorothiazide 25 mg tablet 12.5 mg PO BID Qty: 90 3RF flecainide 100 mg tablet See Rx Instructions .ROUTE .COMPLEX Qty: 180 1RF Dose Instruction: TAKE 1 TABLET BY MOUTH EVERY 12 HOURS Rx Instructions: TAKE 1 TABLET BY MOUTH EVERY 12 HOURS pravastatin 10 mg tablet 10 mg PO DAILY Qty: 90 3RF losartan 50 mg tablet 50 mg PO BID Qty: 60 5RF Referrals Follow up/Referrals: Rony Cancino MD [Primary Care Provider] - See instructions Clinical Impressions Clinical Impression: Stroke Stand Alone Forms Stand Alone Forms: Transfer Record - ED Instructions Patient Instructions: DI for Altered Mental Status Print Language Print Language: Togolese Discharge ED Provider: Марина Stanley Adult HPI General Chief complaint: Altered Mental Status Stated complaint: Fall Time Seen by Provider: 09/29/24 01:09 Mode of Arrival: EMS Source of Information: EMS Description of Symptoms (Recalled from ER Triage Doc. by RN): EMS reports that they were called out to scene for a woman that was found down by her . He reported to EMS she was awake watching TV at 1900 when he went to bed; at approximately 0000 hw woke up and found her down on the floor unknown of how long she had been there. Upon EMS arrival she was placed in a C-Collar, she has been verbally unresponsive and will not follow commands. History of Present Illness HPI narrative: 84-year-old female presents to the ER by [facility]. EMS reports patient was found down by her . Report from EMS was that the stated she was awake and watching TV around 1900. He went to bed and woke up around midnight to find her down on the floor in her bedroom. Unclear how long she had been down. EMS reports the is wheelchair-bound and could not get in the bedroom. EMS reports patient did not have hypoglycemia and route. They placed her in a c-collar due to unclear cause of patient being down and unknown potential traumatic injuries. They report that she was verbally unresponsive and not following commands. Patient's last known normal according to EMS was 1900 and she did not arrive to the ER until nearly 0100 so she is outside the window for stroke alert. Reportedly patient is quite independent despite her advanced age and helps care for her . She does not use any assistive devices to get around. Related Data Previous Rx's ?Medication ?Instructions ?Recorded estradiol 0.01% (0.1 mg/gram) 0.5 g vaginal .Twice weekly #42.5 08/30/23 vaginal cream (Estrace) grams aspirin 81 mg tablet,delayed 81 mg PO DAILY #30 tabs 12/14/23 release (Adult Low Dose Aspirin) hydrochlorothiazide 25 mg tablet 12.5 mg (1/2 x 25 mg) PO BID . #90 03/12/24 tabs flecainide 100 mg tablet See Rx Instructions .Route 04/24/24 .COMPLEX #180 tabs pravastatin 10 mg tablet 10 mg PO DAILY . #90 tabs 05/10/24 losartan 50 mg tablet 50 mg PO BID #60 tabs 08/19/24 metoprolol succinate 25 mg 25 mg PO DAILY #30 tabs 09/09/24 tablet,extended release 24 hr (Toprol XL) levocetirizine 5 mg tablet (Xyzal) 5 mg PO DAILY #30 tabs 09/12/24 diclofenac sodium 1 % topical gel 2 g topical BID #50 grams 09/16/24 (Arthritis Pain (diclofenac)) Allergies Allergy/AdvReac Type Severity Reaction Status Date / Time shellfish derived AdvReac Intermediate breathing Verified 09/16/24 14:04 difficulties bisoprolol AdvReac rash, Verified 09/16/24 14:04 itching [facility] Disclaimer: The information contained in this section may have been updated after the patient was seen, as this information can be updated by other users. Medical History (Updated 09/29/24 @ 03:35 by Марина Stanley MD) Chronic kidney disease Fatigue Urinary tract infection Abnormal electrocardiogram [ECG] [EKG] Essential hypertension Allergic rhinitis Rash and nonspecific skin eruption Surgical History History of total abdominal hysterectomy History of colonoscopy Social History Smoking Status: Unknown if ever smoked second hand exposure: No alcohol intake: never substance use type: denies use current occupational status: retired Travel in the last 8 weeks?: Inside the [place] household members: spouse housing: house current occupational exposures/hazards: No caffeine: Yes Have you lived/traveled outside [place] in past 30 days?: No Contact w/someone who lives/traveled outside US past 30 days?: No Exposure to someone with infectious disease in past 14 days?: No Do you have a fever (greater than 100.4 F or 38 C)?: No Have you tested positive for COVID-19?: No Exposed to someone with COVID-19 in past 14 days?: No Do you have a sore throat?: No Do you have a cough?: No Do you have any weakness?: No Do you have any diarrhea?: No Are you experiencing any unusual bleeding?: No Do you have any muscle aches/pain?: No Do you have any abdominal pain?: No Are you experiencing loss of taste or smell?: No Other Medical History Have you received the Flu Vaccine for this season: Yes Have you received the Pneumonia Vaccine: Yes ROS Obtained: Yes unobtainable due to mental status Physical Exam General General appearance: other Comment: Eyes open, minimally responsive, GCS 10, chronically ill appearing Head Head exam: atraumatic and normocephalic Eye Eye exam: Present PERRL and EOMI ENT ENT exam: Present mucous membranes moist Neck Neck exam: Present normal inspection and other (C-collar in place, no deformity or step-off) Chest Chest inspection: Present symmetric chest wall rise Respiratory Respiratory exam: Present normal lung sounds bilaterally and other (Saturating well on room air); Absent respiratory distress, wheezes or stridor Cardiovascular Cardiovascular exam: Present regular rate and normal rhythm Abdominal Exam Abdominal exam: Present soft; Absent distention, tenderness, guarding or rebound Extremities Exam Extremities exam: Present other; Absent edema Back Exam Back exam: Present other (No deformity or step-off) Neurological Exam Neurological exam: Present alert, motor sensory deficit and other (GCS 10, no verbal response, does not follow commands well, Not responding to commands while in any extremity however with assistance able to raise all extremities, if I initiate movement in each extremity she has 4-5 strength in each extremity, independently moves the L side much more than the R); Absent oriented X3 Expanded Neurological Exam Cranial nerves: Abnormal Right: facial palsy (VII) (Right eyelid droop, flattening of right nasolabial fold) Motor strength - LUE: 4/5 Motor strength - RUE: 4/5 Motor strength - LLE: 4/5 Motor strength - RLE: 4/5 Other motor function: Patient is able to keep each extremity raised and is able to raise them up if I help her initiate the movement but when moving herself independently uses the left side much more than the right Coma scale eye opening: Spontaneous Coma scale motor response: Localizes to pain (Reaches with left upper extremity) Coma scale verbal response: None Coma scale total: 10 Comment: NIHSS at least 20 but significantly limited secondary to patient having no verbal response and not following commands such as for finger tracking, see MDM for comments Skin Skin exam: Present warm and dry Medical Decision Making Medical Records Medical records reviewed: Yes I reviewed the patient's medical records. Screening: Per USPSTF and CDC recommendations, given the prevalence of disease in our region, it is our hospital?s policy to screen for HIV and viral Hepatitis for all patients aged 18 and over and those with ongoing risk factors. MR Comment: No previous CTA head for comparison. Saeed Inquiry Pt receiving controlled substance: No Vital Signs: 09/29/24 01:11 09/29/24 01:30 09/29/24 02:01 Temperature 98.1 F Temperature Source Temporal Artery Scan Pulse Rate 54 L 56 L Pulse Rate [Right] 59 L Respiratory Rate 13 Blood Pressure 156/64 H 176/58 H Blood Pressure [Right Arm] 180/62 H Blood Pressure Mean [Right Arm] 101 Blood Pressure Source Blood Pressure Position 02 Sat by Pulse Oximetry 97 95 93 L Oxygen Delivery Method Room Air 09/29/24 02:32 Temperature 97.6 F Temperature Source Oral Pulse Rate 69 Pulse Rate [Right] Respiratory Rate 16 Blood Pressure 159/64 H Blood Pressure [Right Arm] Blood Pressure Mean [Right Arm] Blood Pressure Source Automatic Cuff Blood Pressure Position Supine 02 Sat by Pulse Oximetry 96 Oxygen Delivery Method Room Air Lab Data Lab Results 09/29/24 01:05: WBC 8.1, RBC 3.93 L, Hgb 12.8, Hct 37.5, MCV 95.4, MCH 32.6 H, MCHC 34.1, RDW 13.1, Plt Count 222, MPV 10.3, Neut % (Auto) 85.7 H, Lymph % (Auto) 7.7 L, [place] % (Auto) 5.8, Eos % (Auto) 0.4, Baso % (Auto) 0.2, Neut # (Auto) 6.9, Lymph # (Auto) 0.6 L, [place] # (Auto) 0.5, Eos # (Auto) 0.0, Baso # (Auto) 0.0, PT 11.2, INR 1.01, APTT 24.5, Sodium 138, Potassium 3.7, Chloride 107, Carbon Dioxide 23, Anion Gap 11.7, BUN 24 H, Creatinine 1.00, Estimated Creat Clear 32, Estimated GFR 53 L, Est GFR ( Amer) 64, Glucose 154 H, Calcium 9.0, Total Bilirubin 0.8, AST 33, ALT 32, Alkaline Phosphatase 78, Total Creatine Kinase 58, Troponin I < 0.01, Total Protein 7.6, Albumin 4.5, Globulin 3.1, Albumin/Globulin Ratio 1.5, Triglycerides 108, Cholesterol 153, LDL Cholesterol Direct 88.74 L, VLDL Cholesterol 22, HDL Cholesterol 42, C holesterol/HDL Ratio 3.6 H, Plasma/Serum Alcohol < 10 09/29/24 01:29: VBG pH 7.37, VBG pCO2 36.4, VBG pO2 63.4 H, VBG HCO3 20.7 L, VBG Total CO2 21.8 L, VBG O2 Saturation 92.4 H, VBG Base Excess -4.6 L, VBG Lactic Acid 2.3 H 09/29/24 02:15: Lactate 1.4 09/29/24 01:05 09/29/24 01:05 Orders (Tests/Meds): ED MEDICATIONS Generic Name Dose Route Start Last Admin Trade Name Freq PRN Reason Stop Dose Admin Sodium Chloride 10 ml 09/29/24 01:23 Sodium Chloride 0.9% 10ml Flush Syringe IV 10/29/24 01:22 NEEDED PRN Maintain IV Site Sodium Chloride 10 ml 09/29/24 02:01 09/29/24 02:03 Sodium Chloride 0.9% 10ml Syr (Rad Only) IV 10/29/24 02:00 10 ml NEEDED PRN Administration Maintain IV Site Discontinued Medications Generic Name Dose Route Start Last Admin Trade Name Freq PRN Reason Stop Dose Admin Iopamidol 160 ml 09/29/24 02:01 09/29/24 02:03 Iopamidol-370 (76%);100ml Bottle IV 09/29/24 02:02 160 ml ONCE ONE Administration Naloxone HCl 4 mg 09/29/24 01:32 09/29/24 01:34 Naloxone Hcl 4mg [place] NS 09/29/24 01:33 4 mg ONCE ONE Administration Sodium Chloride 80 ml 09/29/24 02:01 09/29/24 02:03 0.9 % Sodium Chloride 50 Ml Vial IV 09/29/24 02:02 80 ml ONCE ONE Administration ORDERS Category Date Time Status CT angio abdomen pelvis Stat Cat Scan 09/29/24 01:[address] angio chest - dissection Stat Cat Scan 09/29/24 01:[address] angio head Stat Cat Scan 09/29/24 01:[address] angio neck Stat Cat Scan 09/29/24 01:[address] head/brain wo con Stat Cat Scan 09/29/24 01:23 Completed Activated Partial Thrombo Time Stat Lab 09/29/24 01:05 Completed CK [Creatine Kinase] Stat Lab 09/29/24 01:05 Completed Complete Blood Count Auto Diff Stat Lab 09/29/24 01:05 Completed Comprehensive Metabolic Panel Stat Lab 09/29/24 01:05 Completed Drug Screen,Urine Stat Lab 09/29/24 01:23 Ordered Ethyl Alcohol Stat Lab 09/29/24 01:05 Completed Lactic Acid Stat Lab 09/29/24 02:15 Completed Lipid Panel Stat Lab 09/29/24 01:05 Completed Prothrombin Time INR Stat Lab 09/29/24 01:05 Completed Troponin I Q3H Lab 09/29/24 04:30 Ordered Troponin I Q3H Lab 09/29/24 07:30 Ordered Troponin I Stat Lab 09/29/24 01:05 Completed Urinalysis and Microscopic Stat Lab 09/29/24 01:23 Ordered Blood Culture Stat Micro 09/29/24 01:39 Received VBG [Venous Blood Gas] Stat RT 09/29/24 01:29 Completed ECG Request Stat Y 09/29/24 01:23 Ordered Medical Decision Narrative: In summary, this 84-year-old female with comorbidities described in the HPI which may not be at goal therapy presents to the emergency department today with altered mental status, downtime of over 5 hours upon arrival to the ER according to initial history. On initial evaluation patient is hemodynamically stable, afebrile, GCS 10, NIHSS performed by me is 20 however due to patient's lack of responsiveness or not participating in exam, unable to score horizontal extraocular movements, unable to score visual schmitz due to patient not participating, patient does not participate in facial palsy however she has right sided ptosis and flattening of the nasolabial fold so I scored her +3 on NIHSS, does not follow commands for limb ataxia, responds to painful stimuli in all extremities equally but does not respond to other questions, scored +1 on NIHSS, unable to score extinction/inattention. Patient does use her left side more actively independently than she uses her right. She does not have any acute cardiopulmonary abnormalities, benign abdominal exam, no evidence of traumatic injury. Differential diagnosis includes but is not limited to intracranial bleed, mass, midline shift, ischemic stroke, traumatic injury, metabolic abnormality including but not limited to infection, electrolyte abnormality, hypo or severe hyperglycemia, cardiac abnormality, among others. Based on the initial history provided, patient was not stroke alerted due to being 6 hours from last known normal but she was sent for emergent CT scans including CT angiography of the head and neck. Due to the possibility of other underlying medical abnormality and her history of dissection I also sent her for emergent CTA of the chest, abdomen, pelvis. Serum labs and cardiac workup are also being performed. Ruling out the most morbid conditions drove my assessment. ECG personally interpreted demonstrates sinus bradycardia, rate 57, normal axis, normal AK and QTc, no STEMI. No additional medications CT head personally interpreted does not demonstrate acute intracranial bleed, mass, or midline shift. Radiology read pending. Labs personally reviewed demonstrate no leukocytosis or anemia, platelets normal, PT/INR and APTT normal, VBG with pH 7.37, VBG lactic 2.3, patient has mild prerenal azotemia, IV fluids being provided, initial troponin undetectably low less than 0.01, UA negative for findings of infection, EtOH negative. I received a phone call from [facility] radiologist that the patient has acute left M1 MCA occlusion and is starting to have changes on the Noncon CT head as well. I appreciate his input. After getting off the phone with the multiple [facility] radiology calls, I initiated [facility] transfer through [facility]. We called the transfer center and I spoke with Meka, the nurse practitioner adoption coordinator. After extensive discussion with her, she excepted the patient under Dr. Schwartz for transfer to [facility] [place] for thrombectomy. Called for weather check and attempting to secure helicopter transportation for the patient. If helicopter transportation is not expediently available will transfer by EMS. Stroke team at [facility] [place] and recommended that the patient continue to be maintained in a hypertensive state, head of the bed laid flat. I appreciate the recommendations. Patient has been laid flat. At this point I went to talk to family in the room who had just recently arrived and the son reported that he believes her last known normal was actually around 2200, he states his dad (patients ) has difficulty with clear speech but told the son that he looked in the bedroom around 10 PM and did not realize the patient was on the floor so she was not found until shortly before EMS was called. Son did not give me a direct answer as to whether or not the patient was actually seen to be normal at 10 PM, but thinks she was. When we had this conversation, it was 0240. Unfortunately this puts the patient just outside of our thrombolytic administration window, however because it was very close to the 4.5-hour window, I reached back out to [facility] [place] and spoke with the stroke navigator again as well as the stroke attending. Ultimately after discussion since the patient is outside the 4.5-hour window they did not recommend thrombolytic administration but rather expedient transfer to their facility. Fortunately, while on the phone with the stroke team at [facility] [place], helicopter transport was secured and is approximately 30 minutes out from our facility. With EMS being occupied with community rounds at this time, this will be the fastest way to get the patient to [facility] [place]. Patient's son was understandably frustrated with the complexities of securing transportation as fast as possible, he asked if we could just put the patient in the back of his van which I explained was extremely dangerous since the patient had risk of converting to hemorrhagic stroke, decompensation, worsening of condition, or even and that his van is obviously not equipped with the medical monitoring or medications to manage any of these situations. I reassured him that the fastest transportation possible has been secured for the patient and will be here soon. I reassured him that even with the helicopter being 25 to 30 minutes out at this point, they would still be able to get the patient to [facility] directly to her procedure faster than he would be able to safely take her aside from the significant medical risks. He is still frustrated but understands. He is taking himself to [facility] to meet the patient there when she arrives. 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 See reads for full interpretations. Patient was reassessed and continues to have better strength and movement on the left side than the right, right facial droop persistent. She does seem more mentally aware than she was earlier despite no acute interventions administered in the ER aside from IV fluids. Vitals remained stable. Current blood pressure 156/67. Saturating well on room air, protecting airway. Patient is stable for transfer at this time. She was transferred via helicopter in critical but currently stable condition. Critical Care Critical Care Time Critical Care Time: Yes Attestation: On 09/29/24, the high probability of a clinically significant, sudden or life threatening deterioration of the following system(s) required my full and direct attention, intervention and personal management. The time I documented below is in addition to time spent performing reported procedures but includes the following listed in this critical care notation. Total Time Total Critical Care Time: 90
[2024-09-29] MEDS: NALOXONE HCL 4MG SPRAY 4 MG NS (01:34)
[2024-09-29 01:35] LABS: Basophils % 0.2 % (0.1-2.0); Eosinophils % 0.4 % (0.1-12.0); Hematocrit 37.5 % (37.0-47.0); Hemoglobin 12.8 g/dL (12.2-16.2); Immature Granulocytes # 0.02 10^3uL; Immature Granulocytes % 0.2 %; Lymphocytes # 0.6 K/mm3 (0.7-4.5); Lymphocytes % 7.7 % (10-50); Mean Corpuscular HGB Conc 34.1 g/dL (31.8-35.4); Mean Corpuscular Hemoglobin 32.6 pg (27.0-31.2); Mean Corpuscular Volume 95.4 fl (81-99); Mean Platelet Volume 10.3 fl (7.4-10.4); Monocytes # 0.5 K/mm3 (0.1-1.0); Monocytes % 5.8 % (1.7-9.3); Neutrophils # 6.9 K/mm3 (1.8-7.8); Neutrophils % 85.7 % (37.0-80.0); Nucleated Red Blood Cells # 0 10^3/uL; Nucleated Red Blood Cells % 0 %; Platelet Count 222 K/mm3 (142-424); Red Blood Count 3.93 M/mm3 (4.20-5.40); Red Cell Distribution Width 13.1 % (11.5-17.5); Red Cell Distribution Width-SD 45.7 fL; White Blood Count 8.1 K/mm3 (4.8-10.8)
[2024-09-29 01:35] LABS: VBG Base Excess -4.6 mmol/L (-2.4-2.3); VBG HCO3 20.7 mmol/L (23-30); VBG Oxygen Saturation 92.4 % (50-70); VBG PCO2 36.4 mmol/L (35-51); VBG PH 7.37 mmol/L (7.31-7.41); VBG PO2 63.4 mmol/L (28-40); VBG Total CO2 21.8 mmol/L (23-27)
[2024-09-29 01:36] LABS: Lactate Venous 2.3 mmol/L (0.4-2.0)
[2024-09-29 01:40] LABS: Alanine Aminotransferase 32 U/L (12-78); Albumin Level 4.5 g/dl (3.5-5.0); Albumin/Globulin Ratio 1.5 (1.1-1.8); Alkaline Phosphatase 78 U/L (38-126); Anion Gap 11.7 mEq/L (5-15); Aspartate Amino Transferase 33 U/L (14-36); Bilirubin,Total 0.8 mg/dl (0.2-1.3); Blood Urea Nitrogen 24 mg/dl (7-17); Carbon Dioxide 23 mmol/L (22.0-30.0); Chloride 107 mmol/L (98-107); Chol/HDL Ratio 3.6 (1-3.5); Cholesterol 153 mg/dl (140-200); Creatine Kinase 58 U/L (30-135); Creatinine Clearance Estimated 32 mL/min (50-200); Estimated Glomerular Filt Rate 53 ml/min (>60); GFR (African American) 64 ML/MIN (>60); Globulin 3.1 g/dL (1.3-3.2); Glucose 154 mg/dl (74-100); HDL Cholesterol 42 mg/dl (40-60); Potassium 3.7 mmoL/L (3.5-5.1); Sodium 138 mmol/L (136-145); Total Protein,Serum 7.6 g/dl (6.3-8.2); Triglycerides 108 mg/dl (30-150); VLDL Cholesterol 22 mg/dL (0-40)
[2024-09-29 01:41] LABS: Ethyl Alcohol < 10 mg/dl (0-10)
[2024-09-29 01:43] LABS: Activated Partial Thrombo Time 24.5 seconds (22.8-30.6); INR 1.01 (0.9-1.1); Prothrombin Time 11.2 seconds (10.1-12.5)
[2024-09-29 01:50] LABS: Direct LDL Cholesterol 88.74 mg/dL (100-129)
[2024-09-29 01:54] LABS: Troponin I < 0.01 ng/ml (0.00-0.034)
[2024-09-29 02:01] VITALS: BP 176/58; PULSE 56; O2SAT 93
[2024-09-29] MEDS: 0.9 % SODIUM CHLORIDE 50 ML VIAL 80 ML IV (02:03)
[2024-09-29] MEDS: IOPAMIDOL-370 (76%);100ML BOTTLE 160 ML IV (02:03)
[2024-09-29] MEDS: SODIUM CHLORIDE 0.9% 10ML SYR (RAD ONLY) 10 ML IV (02:03)
[2024-09-29 02:30] LABS: Lactic Acid 1.4 mmol/L (0.7-2.1)
[2024-09-29 02:32] VITALS: BP 159/64; PULSE 69; RESP 16; TEMP 36.4; O2SAT 96
--- NOTE | 2024-09-29 02:33 | PC.NURSE ---
called sunday for a transfer
[2024-09-29 02:46] LABS: Microscopic, Urine URINE MICROSCOPIC (MICROSCOPIC)
[2024-09-29 02:48] LABS: Appearance,Urine CLEAR (Clear); Bilirubin,Urine Negative (Negative); Blood, Urine Negative (Negative); Color,Urine YELLOW (Yellow); Glucose,Urine (UA) Negative (Negative); Ketones,Urine Negative (Negative); Leukocyte Esterase,Urine Negative (Negative); Nitrate,Urine Negative (Negative); Protein,Urine Negative (Negative); Specific Gravity, Urine 1.015 (1.005-1.030)
--- NOTE | 2024-09-29 02:57 | PC.NURSE ---
ED MD reports pt has had CVA and is working on transfer to another facility.
[2024-09-29 02:58] LABS: Bacteria,Urine 1+ /lpf; Squamous Epithelial Cell,Urine Occasional #/hpf (0-5); WBC,Urine Occasional #/hpf (0-3)
[2024-09-29 03:01] LABS: Amphetamine/Metha Screen,Urine Negative ng/ml (<1000); Benzodiazepines Screen,Urine Negative ng/ml (<200)
[2024-09-29 03:02] LABS: Barbiturates Screen,Urine Negative ng/ml (<200)
[2024-09-29 03:06] LABS: Cocaine Screen,Urine Negative ng/ml (<300)
[2024-09-29 03:07] LABS: Cannabinoid Screen,Urine Negative ng/ml (<50)
[2024-09-29 03:08] LABS: Methadone Screen,Urine Negative ng/ml (<300)
[2024-09-29 03:09] LABS: Opiate Screen,Urine Negative ng/ml (<300)
[2024-09-29 03:10] LABS: Phencyclidine Screen,Urine Negative ng/ml (<25)
[2024-09-29 03:33] VITALS: BP 153/49; PULSE 63; RESP 16; O2SAT 95
[2024-09-29] MEDS: LACTATED RINGERS 1000ML 1,000 ML 999 ML IV (03:35)
[2024-09-29 03:47] VITALS: BP 156/67; PULSE 59; RESP 16; TEMP 36.9
--- NOTE | 2024-09-29 04:59 | PC.NURSE ---
Spoke with [facility] and they accepted patient, due to ETA of helicopter physician discussed ground transportation. at this time EMS received another dispatched call and was unable to transport patient until clear of the run. [facility] also returned call once the helicopter had left and ETA was 30 mins. Due to this the physician opted that [facility] was the best option for transfer and the quickest transportation for the safety of the patient and improved outcomes.
--- NOTE | 2024-09-29 05:03 | PC.NURSE ---
Called [facility] at 02:39 said the closest flight was approximately 47 minutes away. [place] said they could contact [facility] since they had a helicopter with a 15 minute eta. [facility] declined so [facility] contacted [facility]. While we waited to hear a call back, [facility] brought in two patients. While we were waiting to hear a call back from [facility] we asked EMS if they could take the pt to [facility], they said we have to wait till the second truck to clear from the third run . At 02:57 both [facility] and [facility] contacted us. [facility] said that [facility] accepted and are on the way. And [facility] said they were already in the air at approximately 30 minutes away. So the decision was made to wait for to get here to transfer.
[2024-09-29 05:36] LABS: Reflex Lactic Add Lactic Reflex
== END 2024-09-29 03:52 | disposition short-term general hospital (02) ==
PROVIDERS: Emergency Provider Emergency Medicine; PCP Family Medicine
DX: I63.9 Cerebral infarction, unspecified (principal); R00.1 Bradycardia, unspecified; R29.720 NIHSS score 20; H57.00 Unspecified anomaly of pupillary function; R74.02 Elevation of levels of lactic acid dehydrogenase [LDH]; R39.2 Extrarenal uremia; N18.9 Chronic kidney disease, unspecified; I12.9 Hypertensive chronic kidney disease with stage 1 through stage 4 chronic kidney disease, or unspecified chronic kidney disease
CPT/HCPCS: 51702; 70450; 70496; 70498; 71275; 74174; 80053; 80061; 80307; 80320; 81001; 82550; 82803; 83605; 84484; 85025; 85610; 85730; 87040; 87086; 87088; 87186; 93005; 96360; 99291; J7120; Q9967

== ENCOUNTER 2024-10-04 11:42 | Observation (INO) | payer MEDICARE, BC, SELFPAY ==
[2024-10-04] VITALS (7 sets, daily range): BP systolic 128–173; BP diastolic 51–74; PULSE 53–69; RESP 14–18; TEMP 36.5–37; O2SAT 97–99; BMI 20.7; BMI 20.9
--- NOTE | 2024-10-04 12:12 | XR_ITS ---
FINAL REPORT CLINICAL HISTORY: Abdominal pain, no bowel movement was Hellen COMPARISON: None FINDINGS: ABDOMEN COMPLETE INCL CHEST, FOUR VIEWS Chest: The images are suboptimal with overpenetration not allowing adequate assessment of lung detail. The heart and mediastinal are within normal limits. Abdomen: There is no evidence of bowel obstruction. There is no free air. Vascular calcifications are present. IMPRESSION: No bowel obstruction. Suboptimal evaluation of the thorax. Reviewed, Interpreted and Dictated by Rin Kwon MD Transcribed by Tiffanie Lyons Authenticated and [facility]
[2024-10-04 12:26] LABS: Basophils % 0.2 % (0.1-2.0); Eosinophils % 0.3 % (0.1-12.0); Hematocrit 37.8 % (37.0-47.0); Hemoglobin 12.3 g/dL (12.2-16.2); Immature Granulocytes # 0.03 10^3uL; Immature Granulocytes % 0.3 %; Lymphocytes # 0.7 K/mm3 (0.7-4.5); Lymphocytes % 5.5 % (10-50); Mean Corpuscular HGB Conc 32.5 g/dL (31.8-35.4); Mean Corpuscular Hemoglobin 31.5 pg (27.0-31.2); Mean Corpuscular Volume 96.9 fl (81-99); Mean Platelet Volume 9.5 fl (7.4-10.4); Monocytes # 0.5 K/mm3 (0.1-1.0); Monocytes % 4.4 % (1.7-9.3); Neutrophils # 10.6 K/mm3 (1.8-7.8); Neutrophils % 89.3 % (37.0-80.0); Nucleated Red Blood Cells # 0 10^3/uL; Nucleated Red Blood Cells % 0 %; Platelet Count 222 K/mm3 (142-424); Red Cell Distribution Width 13.2 % (11.5-17.5); Red Cell Distribution Width-SD 47.1 fL; White Blood Count 11.9 K/mm3 (4.8-10.8)
[2024-10-04 12:30] LABS: Microscopic, Urine URINE MICROSCOPIC (MICROSCOPIC)
[2024-10-04 12:30] LABS: Albumin Level 4.6 g/dl (3.5-5.0); Chloride 107 mmol/L (98-107); Potassium 3.9 mmoL/L (3.5-5.1); Sodium 139 mmol/L (136-145)
--- NOTE | 2024-10-04 12:30 | ED_ITS ---
Discharge Plan Disposition Patient Disposition: Admitted Clinical Impressions Clinical Impression: Stercoral colitis Urinary tract infectious disease Qualifiers: Urinary tract infection type: site unspecified Hematuria presence: without hematuria Qualified Code(s): N39.0 - Urinary tract infection, site not specified Discharge ED Provider: Stefano Page General Adult HPI <TONYA Lester - Last Filed: 10/04/24 21:00> General Chief complaint: Abdominal Pain Stated complaint: Severe abd. pain, Stroke patient-last week Time Seen by Provider: 10/04/24 12:30 Mode of Arrival: Wheelchair Source of Information: Patient and Relative Description of Symptoms (Recalled from ER Triage Doc. by RN): Pt presents for evaluation of abdominal pain that started today. Pt's sister states she was recently admitted to [facility] due to a stroke and was discharged on monday. Pt has not had a bowel movement since before she was admitted to the hospital. Sister attempted to give patient an enema but pt has not had a bowel movement yet. History of Present Illness HPI narrative: Patient presents for evaluation of of abdominal pain. Patient began having severe abdominal pain this morning. She has not had a bowel movement in at least a week. Last bowel movement was before she was admitted to the hospital last Monday. 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 She underwent thrombectomy reportedly and has had no residual deficits. She was ultimately discharged on Monday of this week. Family attempted enema x 1 without success and her abdominal pain is worsened throughout the day so she presented to the emergency department for evaluation. She is currently denies chest pain shortness of breath fever chills hemoptysis hematochezia melena nausea vomiting or diarrhea. Related Data Home Medications ?Medication ?Instructions ?Recorded ?Confirmed atorvastatin 80 mg tablet 80 mg PO HS 10/04/24 10/04/24 clopidogrel 75 mg tablet 75 mg PO DAILY 10/04/24 10/04/24 diclofenac sodium 1 % topical gel 1 ea topical BID 10/04/24 10/04/24 (Arthritis Pain (diclofenac)) estradiol 0.01% (0.1 mg/gram) 0.5 g vaginal DIRECTED 10/04/24 10/04/24 vaginal cream (Estrace) flecainide 100 mg tablet 100 mg PO BID 10/04/24 10/04/24 hydrochlorothiazide 25 mg tablet 12.5 mg PO DAILY 10/04/24 10/04/24 Previous Rx's ?Medication ?Instructions ?Recorded aspirin 81 mg tablet,delayed 81 mg PO DAILY #30 tabs 12/14/23 release (Adult Low Dose Aspirin) losartan 50 mg tablet 50 mg PO BID #60 tabs 08/19/24 metoprolol succinate 25 mg 25 mg PO DAILY #30 tabs 09/09/24 tablet,extended release 24 hr (Toprol XL) levocetirizine 5 mg tablet (Xyzal) 5 mg PO DAILY #30 tabs 09/12/24 Allergies Allergy/AdvReac Type Severity Reaction Status Date / Time shellfish derived AdvReac Intermediate breathing Verified 09/16/24 14:04 difficulties bisoprolol AdvReac rash, Verified 09/16/24 14:04 itching [facility] <TONYA Lester - Last Filed: 10/04/24 21:00> [facility] Disclaimer: The information contained in this section may have been updated after the patient was seen, as this information can be updated by other users. Medical History (Updated 10/04/24 @ 20:51 by TONYA Lester) Chronic kidney disease Fatigue Urinary tract infection Abnormal electrocardiogram [ECG] [EKG] Essential hypertension Allergic rhinitis Rash and nonspecific skin eruption Surgical History History of total abdominal hysterectomy History of colonoscopy Family History (Updated 10/04/24 @ 16:51 by Ramez Rivera RN) Other Chronic kidney disease Social History (Updated 10/04/24 @ 16:41 by Ramez Rivera RN) Smoking Status: Current every day smoker tobacco type: cigarettes packs per day: 1 second hand exposure: No alcohol intake: never substance use type: denies use current occupational status: retired Travel in the last 8 weeks?: Inside the [place] household members: spouse housing: house current occupational exposures/hazards: No caffeine: Yes Have you lived/traveled outside [place] in past 30 days?: No Contact w/someone who lives/traveled outside US past 30 days?: No Exposure to someone with infectious disease in past 14 days?: No Do you have a fever (greater than 100.4 F or 38 C)?: No Have you tested positive for COVID-19?: No Exposed to someone with COVID-19 in past 14 days?: No Do you have a sore throat?: No Do you have a cough?: No Do you have any weakness?: No Do you have any diarrhea?: No Are you experiencing any unusual bleeding?: No Do you have any muscle aches/pain?: No Do you have any abdominal pain?: No Are you experiencing loss of taste or smell?: No Other Medical History Have you received the Flu Vaccine for this season: Yes Have you received the Pneumonia Vaccine: Yes <TONYA Lester - Last Filed: 10/04/24 21:00> ROS Obtained: Yes Systems reviewed as appropriate & no additional complaints except as documented Physical Exam <TONYA Lester - Last Filed: 10/04/24 21:00> General General appearance: alert Respiratory Respiratory exam: Present normal lung sounds bilaterally Cardiovascular Cardiovascular exam: Present regular rate Neurological Exam Neurological exam: Present alert and oriented X3 Medical Decision Making <TONYA Lester - Last Filed: 10/04/24 21:00> Medical Records Medical records reviewed: Yes I reviewed the patient's medical records. Screening: Per USPSTF and CDC recommendations, given the prevalence of disease in our region, it is our hospital?s policy to screen for HIV and viral Hepatitis for all patients aged 18 and over and those with ongoing risk factors. Saeed Inquiry Pt receiving controlled substance: No Vital Signs: 10/04/24 12:08 10/04/24 12:31 10/04/24 13:24 Temperature 97.7 F Temperature Source Tympanic Pulse Rate 61 69 Pulse Rate [Right] 53 L Respiratory Rate 18 Blood Pressure 173/74 H 168/70 H Blood Pressure [Right Arm] 168/58 H Blood Pressure Mean [Right Arm] 94 Blood Pressure Source [Right Arm] Automatic Cuff Blood Pressure Position [Right Arm] Sitting 02 Sat by Pulse Oximetry 99 99 98 Oxygen Delivery Method Room Air Room Air 10/04/24 13:30 Temperature Temperature Source Pulse Rate 66 Pulse Rate [Right] Respiratory Rate Blood Pressure 171/68 H Blood Pressure [Right Arm] Blood Pressure Mean [Right Arm] Blood Pressure Source [Right Arm] Blood Pressure Position [Right Arm] 02 Sat by Pulse Oximetry 98 Oxygen Delivery Method Room Air Lab Data Lab results reviewed: Yes I reviewed the patient's lab results. Lab Results 10/04/24 12:13: WBC 11.9 H, RBC 3.90 L, Hgb 12.3, Hct 37.8, MCV 96.9, MCH 31.5 H , MCHC 32.5, RDW 13.2, Plt Count 222, MPV 9.5, Neut % (Auto) 89.3 H, Lymph % (Auto) 5.5 L, [place] % (Auto) 4.4, Eos % (Auto) 0.3, Baso % (Auto) 0.2, Neut # (Auto) 10.6 H, Lymph # (Auto) 0.7, [place] # (Auto) 0.5, Eos # (Auto) 0.0, Baso # (Auto) 0.0, Sodium 139, Potassium 3.9, Chloride 107, Carbon Dioxide 25, Anion Gap 10.9, BUN 19 H, Creatinine 0.80, Estimated Creat Clear 32, Estimated GFR 68, Est GFR ( Amer) 82, Glucose 141 H, Calcium 9.1, Total Bilirubin 0.9, AST 32, ALT 21, Alkaline Phosphatase 98, Total Protein 7.6, Albumin 4.6, Globulin 3.0, Albumin/Globulin Ratio 1.5, Lipase 35 10/04/24 12:20: Urine Color Yellow, Urine Appearance Clear, Urine pH 5.5, Ur Specific [place] 1.025, Urine Protein Negative, Urine Glucose (UA) Negative, Urine Ketones Negative, Urine Blood Negative, Urine Nitrate Positive A, Urine Bilirubin Negative, Urine Urobilinogen 0.2, Ur Leukocyte Esterase Negative, Urine RBC None, Urine WBC None, Ur Squamous Epith Cells 5-10, Urine Bacteria 4+ 10/04/24 12:51: Magnesium 1.7, Lipase 30, Procalcitonin 0.038 10/04/24 12:13 10/04/24 12:13 Orders (Tests/Meds): ED MEDICATIONS Generic Name Dose Route Start Last Admin Trade Name Freq PRN Reason Stop Dose Admin Acetaminophen 650 mg 10/04/24 14:34 Acetaminophen 325mg Tab PO 11/03/24 14:33 Q4HP PRN Fever or Mild Pain (1-3) Aspirin 81 mg 10/05/24 09:00 Aspirin Ec 81mg Tablet PO 11/04/24 08:59 DAILY JUJU Atorvastatin Calcium 80 mg 10/05/24 21:00 Atorvastatin 40mg Tablet PO 11/04/24 20:59 HS [facility] Clopidogrel Bisulfate 75 mg 10/05/24 09:00 Clopidogrel 75mg Tab PO 11/04/24 08:59 DAILY [facility] Enoxaparin Sodium 40 mg 10/05/24 09:00 Enoxaparin 40mg/0.4ml Syringe SUBCUT 11/04/24 08:59 DAILY [facility] Hydrochlorothiazide 12.5 mg 10/05/24 09:00 Hydrochlorothiazide 25mg Tablet PO 11/04/24 08:59 DAILY [facility] Lactated Ringer's 1,000 mls @ 75 mls/hr 10/04/24 14:45 10/04/24 15:58 Lactated Ringer's 1000 Ml Bag IV 11/03/24 14:44 75 mls/hr .[id number] JUJU Administration Piperacillin Sod/Tazobactam 50 mls @ 100 mls/hr 10/04/24 21:15 10/04/24 22:14 Sod 3.375 gm/ Sodium Chloride IV 10/14/24 21:14 100 mls/hr Q6H JUJU Administration Ketorolac Tromethamine 30 mg 10/04/24 14:34 Ketorolac 30mg/Ml Vial IV 10/09/24 14:33 Q6HP PRN Moderate to Severe Pain (4-10) Lactulose 20 gm 10/04/24 21:00 10/04/24 20:00 Lactulose 20gm/30ml Udc PO 11/03/24 20:59 20 gm QID JUJU Administration Loratadine 10 mg 10/05/24 09:00 Loratadine 10mg Tablet PO 11/04/24 08:59 DAILY [facility] Metoprolol Succinate 25 mg 10/05/24 09:00 Metoprolol Succinate Xl 25mg Tablet PO 11/04/24 08:59 DAILY [facility] Morphine Sulfate 2 mg 10/04/24 14:34 Morphine 2mg/Ml Syringe IV 11/03/24 14:33 Q4HP PRN Severe Pain (7-10) Non-Formulary Medication 100 mg 10/04/24 21:30 10/04/24 21:30 Flecainide PO 11/03/24 21:29 100 mg BID JUJU Administration Ondansetron HCl 4 mg 10/04/24 14:34 Ondansetron 4mg/2ml Vial IV 11/03/24 14:33 Q8HP PRN Nausea Discontinued Medications Generic Name Dose Route Start Last Admin Trade Name Deepakq PRN Reason Stop Dose Admin Acetaminophen 1,000 mg 10/04/24 12:52 10/04/24 13:35 Acetaminophen 1,000mg/100ml Vial IV 10/04/24 12:53 1,000 mg ONCE ONE Administration Sodium Chloride 1,000 mls @ 999 mls/hr 10/04/24 12:52 10/04/24 13:36 Sod Chlor 0.9% 1000ml Bag IV 10/04/24 13:52 999 mls/hr .Q1H1M ONE Administration Magnesium Sulfate 2 gm in 50 mls @ 50 mls/hr 10/04/24 13:44 10/04/24 14:44 Magnesium Sulfate 2gm/50ml Premix IV 10/04/24 14:43 50 mls/hr ONCE ONE Administration Ceftriaxone Sodium 1 gm/ 50 mls @ 100 mls/hr 10/04/24 14:45 10/04/24 14:45 Sodium Chloride IV 10/14/24 14:44 100 mls/hr Q24H JUJU Administration Iopamidol 75 ml 10/04/24 13:17 10/04/24 13:19 Iopamidol-370 (76%);100ml Bottle IV 10/04/24 13:18 75 ml ONCE ONE Administration Ketorolac Tromethamine 15 mg 10/04/24 12:52 10/04/24 13:36 Ketorolac 30mg/Ml Vial IV 10/04/24 12:53 15 mg ONCE ONE Administration Morphine Sulfate 1 mg 10/04/24 12:52 10/04/24 13:36 Morphine 2mg/Ml Syringe IV 10/04/24 12:53 1 mg ONCE ONE Administration Sodium Chloride 10 ml 10/04/24 13:17 10/04/24 13:18 Sodium Chloride 0.9% 10ml Syr (Rad Only) IV 10/04/24 13:18 10 ml ONCE ONE Administration ORDERS Category Date Time Status CT abdomen pelvis w con Stat Cat Scan 10/04/24 12:50 Completed XR acute abdomen series Stat Exams 10/04/24 12:12 Completed Complete Blood Count Auto Diff [facility] Lab 10/05/24 06:00 Ordered Complete Blood Count Auto Diff [facility] Lab 10/06/24 06:00 Ordered Complete Blood Count Auto Diff [facility] Lab 10/07/24 06:00 Ordered Complete Blood Count Auto Diff [facility] Lab 10/08/24 06:00 Ordered Complete Blood Count Auto Diff [facility] Lab 10/09/24 06:00 Ordered Complete Blood Count Auto Diff Stat Lab 10/04/24 12:13 Completed Comprehensive Metabolic Panel [facility] Lab 10/05/24 06:00 Ordered Comprehensive Metabolic Panel [facility] Lab 10/06/24 06:00 Ordered Comprehensive Metabolic Panel [facility] Lab 10/07/24 06:00 Ordered Comprehensive Metabolic Panel AML[facility] Lab 10/08/24 06:00 Ordered Comprehensive Metabolic Panel AML[facility] Lab 10/09/24 06:00 Ordered Comprehensive Metabolic Panel Stat Lab 10/04/24 12:13 Completed Lipase Stat Lab 10/04/24 12:13 Completed Lipase Stat Lab 10/04/24 12:51 Completed Magnesium [facility] Lab 10/05/24 06:00 Ordered Magnesium Stat Lab 10/04/24 12:51 Completed Procalcitonin Stat Lab 10/04/24 12:51 Completed Urinalysis and Microscopic Stat Lab 10/04/24 12:20 Completed Urine Culture Stat Micro 10/04/24 12:20 Received Medical Decision Narrative: In summary patient is a 84-year-old female who presents to the emergency department for evaluation of acute abdominal pain and constipation. Patient is hemodynamically stable with a blood pressure 168/58 heart rate 53 with sinus bradycardia on the bedside monitor breathing 18 times a minute satting at 99% on room air upon arrival, afebrile at 97.7. Physical exam reveals a well-nourished well-developed 84-year-old female who is in moderate amount of abdominal pain. Physical exam reveals clear breath sounds with no increased work of breathing or adventitious sounds abdominal exam reveals the abdomen is soft but diffusely exquisitely tender but more focally so in the left quadrants. There is no rebound or guarding no rigidity. Bowel sounds normal active.. Differential diagnosis includes constipation versus bowel ischemia versus bowel obstruction etc. Initial workup will be conducted with hematologic labs urinalysis CT scan abdomen pelvis. Initial interventions include crystalloid bolus Toradol Tylenol. While awaiting results patient had no relief from initial interventions thus I gave her a small dose of opiates 2 mg which was able to relieve her pain. Initial workup reviewed by me and her hematologic labs show white count of 11.9 normal H&H absolute neutrophil count is 10.6 procalcitonin is 0.038 and the remainder of her hematologic labs are nonactionable. Urinalysis is positive for nitrites negative for leukocyte Estrace and microscopic exam shows 5-10 squamous cells and 4+ bacteria but no other abnormalities. My informal interpretation of her CT scan abdomen pelvis especially comparison with the CTA done during her previous admission a week ago shows an increasing stool burden and stool impaction up to the level of the transverse colon extending to the rectum. There is stranding around the sigmoid and rectum but no perforation.. Given this I had an interactive discussion with hospital medicine regarding patient presentation patient OLSON and patient management and she will be admitted for further evaluation and care for stercoral colitis and UTI <Stefano Page MD - Last Filed: 10/04/24 23:32> Vital Signs: 10/04/24 12:08 10/04/24 12:31 10/04/24 13:24 Temperature 97.7 F Temperature Source Tympanic Pulse Rate 61 69 Pulse Rate [Right] 53 L Respiratory Rate 18 Blood Pressure 173/74 H 168/70 H Blood Pressure [Right Arm] 168/58 H Blood Pressure Mean [Right Arm] 94 Blood Pressure Source [Right Arm] Automatic Cuff Blood Pressure Position [Right Arm] Sitting 02 Sat by Pulse Oximetry 99 99 98 Oxygen Delivery Method Room Air Room Air 10/04/24 13:30 Temperature Temperature Source Pulse Rate 66 Pulse Rate [Right] Respiratory Rate Blood Pressure 171/68 H Blood Pressure [Right Arm] Blood Pressure Mean [Right Arm] Blood Pressure Source [Right Arm] Blood Pressure Position [Right Arm] 02 Sat by Pulse Oximetry 98 Oxygen Delivery Method Room Air Lab Data Lab Results 10/04/24 12:13: WBC 11.9 H, RBC 3.90 L, Hgb 12.3, Hct 37.8, MCV 96.9, MCH 31.5 H , MCHC 32.5, RDW 13.2, Plt Count 222, MPV 9.5, Neut % (Auto) 89.3 H, Lymph % (Auto) 5.5 L, [place] % (Auto) 4.4, Eos % (Auto) 0.3, Baso % (Auto) 0.2, Neut # (Auto) 10.6 H, Lymph # (Auto) 0.7, [place] # (Auto) 0.5, Eos # (Auto) 0.0, Baso # (Auto) 0.0, Sodium 139, Potassium 3.9, Chloride 107, Carbon Dioxide 25, Anion Gap 10.9, BUN 19 H, Creatinine 0.80, Estimated Creat Clear 32, Estimated GFR 68, Est GFR ( Amer) 82, Glucose 141 H, Calcium 9.1, Total Bilirubin 0.9, AST 32, ALT 21, Alkaline Phosphatase 98, Total Protein 7.6, Albumin 4.6, Globulin 3.0, Albumin/Globulin Ratio 1.5, Lipase 35 10/04/24 12:20: Urine Color Yellow, Urine Appearance Clear, Urine pH 5.5, Ur Specific [place] 1.025, Urine Protein Negative, Urine Glucose (UA) Negative, Urine Ketones Negative, Urine Blood Negative, Urine Nitrate Positive A, Urine Bilirubin Negative, Urine Urobilinogen 0.2, Ur Leukocyte Esterase Negative, Urine RBC None, Urine WBC None, Ur Squamous Epith Cells 5-10, Urine Bacteria 4+ 10/04/24 12:51: Magnesium 1.7, Lipase 30, Procalcitonin 0.038 Orders (Tests/Meds): ED MEDICATIONS Generic Name Dose Route Start Last Admin Trade Name Freq PRN Reason Stop Dose Admin Acetaminophen 650 mg 10/04/24 14:34 Acetaminophen 325mg Tab PO 11/03/24 14:33 Q4HP PRN Fever or Mild Pain (1-3) Aspirin 81 mg 10/05/24 09:00 Aspirin Ec 81mg Tablet PO 11/04/24 08:59 DAILY [facility] Atorvastatin Calcium 80 mg 10/05/24 21:00 Atorvastatin 40mg Tablet PO 11/04/24 20:59 HS [facility] Clopidogrel Bisulfate 75 mg 10/05/24 09:00 Clopidogrel 75mg Tab PO 11/04/24 08:59 DAILY [facility] Enoxaparin Sodium 40 mg 10/05/24 09:00 Enoxaparin 40mg/0.4ml Syringe SUBCUT 11/04/24 08:59 DAILY [facility] Hydrochlorothiazide 12.5 mg 10/05/24 09:00 Hydrochlorothiazide 25mg Tablet PO 11/04/24 08:59 DAILY [facility] Lactated Ringer's 1,000 mls @ 75 mls/hr 10/04/24 14:45 10/04/24 15:58 Lactated Ringer's 1000 Ml Bag IV 11/03/24 14:44 75 mls/hr .[id number] JUJU Administration Piperacillin Sod/Tazobactam 50 mls @ 100 mls/hr 10/04/24 21:15 10/04/24 22:14 Sod 3.375 gm/ Sodium Chloride IV 10/14/24 21:14 100 mls/hr Q6H JUJU Administration Ketorolac Tromethamine 30 mg 10/04/24 14:34 Ketorolac 30mg/Ml Vial IV 10/09/24 14:33 Q6HP PRN Moderate to Severe Pain (4-10) Lactulose 20 gm 10/04/24 21:00 10/04/24 20:00 Lactulose 20gm/30ml Udc PO 11/03/24 20:59 20 gm QID JUJU Administration Loratadine 10 mg 10/05/24 09:00 Loratadine 10mg Tablet PO 11/04/24 08:59 DAILY JUJU Metoprolol Succinate 25 mg 10/05/24 09:00 Metoprolol Succinate Xl 25mg Tablet PO 11/04/24 08:59 DAILY [facility] Morphine Sulfate 2 mg 10/04/24 14:34 Morphine 2mg/Ml Syringe IV 11/03/24 14:33 Q4HP PRN Severe Pain (7-10) Non-Formulary Medication 100 mg 10/04/24 21:30 10/04/24 21:30 Flecainide PO 11/03/24 21:29 100 mg BID JUJU Administration Ondansetron HCl 4 mg 10/04/24 14:34 Ondansetron 4mg/2ml Vial IV 11/03/24 14:33 Q8HP PRN Nausea Discontinued Medications Generic Name Dose Route Start Last Admin Trade Name Freq PRN Reason Stop Dose Admin Acetaminophen 1,000 mg 10/04/24 12:52 10/04/24 13:35 Acetaminophen 1,000mg/100ml Vial IV 10/04/24 12:53 1,000 mg ONCE ONE Administration Sodium Chloride 1,000 mls @ 999 mls/hr 10/04/24 12:52 10/04/24 13:36 Sod Chlor 0.9% 1000ml Bag IV 10/04/24 13:52 999 mls/hr .Q1H1M ONE Administration Magnesium Sulfate 2 gm in 50 mls @ 50 mls/hr 10/04/24 13:44 10/04/24 14:44 Magnesium Sulfate 2gm/50ml Premix IV 10/04/24 14:43 50 mls/hr ONCE ONE Administration Ceftriaxone Sodium 1 gm/ 50 mls @ 100 mls/hr 10/04/24 14:45 10/04/24 14:45 Sodium Chloride IV 10/14/24 14:44 100 mls/hr Q24H JUJU Administration Iopamidol 75 ml 10/04/24 13:17 10/04/24 13:19 Iopamidol-370 (76%);100ml Bottle IV 10/04/24 13:18 75 ml ONCE ONE Administration Ketorolac Tromethamine 15 mg 10/04/24 12:52 10/04/24 13:36 Ketorolac 30mg/Ml Vial IV 10/04/24 12:53 15 mg ONCE ONE Administration Morphine Sulfate 1 mg 10/04/24 12:52 10/04/24 13:36 Morphine 2mg/Ml Syringe IV 10/04/24 12:53 1 mg ONCE ONE Administration Sodium Chloride 10 ml 10/04/24 13:17 10/04/24 13:18 Sodium Chloride 0.9% 10ml Syr (Rad Only) IV 10/04/24 13:18 10 ml ONCE ONE Administration ORDERS Category Date Time Status CT abdomen pelvis w con Stat Cat Scan 10/04/24 12:50 Completed XR acute abdomen series Stat Exams 10/04/24 12:12 Completed Complete Blood Count Auto Diff [facility] Lab 10/05/24 06:00 Ordered Complete Blood Count Auto Diff [facility] Lab 10/06/24 06:00 Ordered Complete Blood Count Auto Diff [facility] Lab 10/07/24 06:00 Ordered Complete Blood Count Auto Diff [facility] Lab 10/08/24 06:00 Ordered Complete Blood Count Auto Diff [facility] Lab 10/09/24 06:00 Ordered Complete Blood Count Auto Diff Stat Lab 10/04/24 12:13 Completed Comprehensive Metabolic Panel [facility] Lab 10/05/24 06:00 Ordered Comprehensive Metabolic Panel [facility] Lab 10/06/24 06:00 Ordered Comprehensive Metabolic Panel [facility] Lab 10/07/24 06:00 Ordered Comprehensive Metabolic Panel AML[facility] Lab 10/08/24 06:00 Ordered Comprehensive Metabolic Panel AML[facility] Lab 10/09/24 06:00 Ordered Comprehensive Metabolic Panel Stat Lab 10/04/24 12:13 Completed Lipase Stat Lab 10/04/24 12:13 Completed Lipase Stat Lab 10/04/24 12:51 Completed Magnesium AMLAB Lab 10/05/24 06:00 Ordered Magnesium Stat Lab 10/04/24 12:51 Completed Procalcitonin Stat Lab 10/04/24 12:51 Completed Urinalysis and Microscopic Stat Lab 10/04/24 12:20 Completed Urine Culture Stat Micro 10/04/24 12:20 Received Medical Decision Narrative: In summary patient is a 84-year-old female who presents to the emergency department for evaluation of acute abdominal pain and constipation. Patient is hemodynamically stable with a blood pressure 168/58 heart rate 53 with sinus bradycardia on the bedside monitor breathing 18 times a minute satting at 99% on room air upon arrival, afebrile at 97.7. Physical exam reveals a well-nourished well-developed 84-year-old female who is in moderate amount of abdominal pain. Physical exam reveals clear breath sounds with no increased work of breathing or adventitious sounds abdominal exam reveals the abdomen is soft but diffusely exquisitely tender but more focally so in the left quadrants. There is no rebound or guarding no rigidity. Bowel sounds normal active.. Differential diagnosis includes constipation versus bowel ischemia versus bowel obstruction etc. Initial workup will be conducted with hematologic labs urinalysis CT scan abdomen pelvis. Initial interventions include crystalloid bolus Toradol Tylenol. While awaiting results patient had no relief from initial interventions thus I gave her a small dose of opiates 2 mg which was able to relieve her pain. Initial workup reviewed by me and her hematologic labs show white count of 11.9 normal H&H absolute neutrophil count is 10.6 procalcitonin is 0.038 and the remainder of her hematologic labs are nonactionable. Urinalysis is positive for nitrites negative for leukocyte Estrace and microscopic exam shows 5-10 squamous cells and 4+ bacteria but no other abnormalities. My informal interpretation of her CT scan abdomen pelvis especially comparison with the CTA done during her previous admission a week ago shows an increasing stool burden and stool impaction up to the level of the transverse colon extending to the rectum. There is stranding around the sigmoid and rectum but no perforation.. Given this I had an interactive discussion with hospital medicine regarding patient presentation patient OLSON and patient management and she will be admitted for further evaluation and care for stercoral colitis and UTI. I was consulted by the YAAKOV, and we discussed the complexity of the problems being addressed. I approve the treatment and management plan for this patient's care in the emergency department, thus performing a substantive portion of the medical decision making. Stefano Page MD Critical Care <TONYA Lester - Last Filed: 10/04/24 21:00> Critical Care Time Critical Care Time: Yes Attestation: On 10/04/24, the high probability of a clinically significant, sudden or life threatening deterioration of the following system(s) required my full and direct attention, intervention and personal management. The time I documented below is in addition to time spent performing reported procedures but includes the following listed in this critical care notation. Total Time Total Critical Care Time: 30
[2024-10-04 12:32] LABS: Blood Urea Nitrogen 19 mg/dl (7-17); Creatinine Clearance Estimated 32 mL/min (50-200); Estimated Glomerular Filt Rate 68 ml/min (>60); GFR (African American) 82 ML/MIN (>60)
[2024-10-04 12:33] LABS: Alanine Aminotransferase 21 U/L (12-78); Albumin/Globulin Ratio 1.5 (1.1-1.8); Alkaline Phosphatase 98 U/L (38-126); Anion Gap 10.9 mEq/L (5-15); Aspartate Amino Transferase 32 U/L (14-36); Bilirubin,Total 0.9 mg/dl (0.2-1.3); Calcium 9.1 mg/dl (8.4-10.2); Carbon Dioxide 25 mmol/L (22.0-30.0); Glucose 141 mg/dl (74-100); Lipase 35 U/L (23-300); Total Protein,Serum 7.6 g/dl (6.3-8.2)
[2024-10-04 12:39] LABS: Appearance,Urine CLEAR (Clear); Bilirubin,Urine Negative (Negative); Blood, Urine Negative (Negative); Color,Urine YELLOW (Yellow); Glucose,Urine (UA) Negative (Negative); Ketones,Urine Negative (Negative); Leukocyte Esterase,Urine Negative (Negative); Nitrate,Urine POSITIVE (Negative); PH,Urine 5.5 (5.0-8.5); Protein,Urine Negative (Negative); Specific Gravity, Urine 1.025 (1.005-1.030); Urobilinogen,Urine 0.2 EU/dl (0.2)
--- NOTE | 2024-10-04 12:50 | CT_ITS ---
FINAL REPORT TECHNIQUE: IV contrast enhanced exam This study was performed with techniques to keep radiation doses as low as reasonably achievable, (ALARA). Individualized dose reduction techniques using automated exposure control or adjustment of mA and/or kV according to the patient''s size were employed. CLINICAL HISTORY: Acute abd pain, no BM in 5 days COMPARISON: 10/19/2022 FINDINGS: CT ABDOMEN PELVIS WITH CONTRAST: Abdomen: Lung bases are clear. The gallbladder is unremarkable. Liver has an unremarkable CT appearance. The spleen, pancreas and adrenal glands are unremarkable. Kidneys show no mass or obstruction. 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 There are no CT findings of acute mesenteric ischemia. No bowel obstruction or fluid collection is seen. Moderate fecal impaction is noted. Pelvis: There is moderate fecal impaction in the descending and sigmoid portions of the colon. There is stranding again noted adjacent to the distal descending and proximal sigmoid colon, that may be seen with stercoral colitis. No evidence of an abscess is noted. The uterus has been surgically resected. Pelvic floor prolapse is present. There is no evidence of bowel obstruction. IMPRESSION: 1. Moderate fecal impaction of the descending and sigmoid colon, with stranding again noted adjacent to the distal descending and proximal sigmoid colon, that can be seen with colitis, and in particular stercoral colitis given the fecal impaction. 2. No bowel obstruction is noted. Reviewed, Interpreted and Dictated by Rin Kwon MD Transcribed by Mayra Mott Authenticated and [facility]
[2024-10-04 13:00] LABS: Bacteria,Urine 4+ /lpf
[2024-10-04 13:11] LABS: Lipase 30 U/L (23-300); Magnesium 1.7 mg/dl (1.6-2.3)
[2024-10-04] MEDS: SODIUM CHLORIDE 0.9% 10ML SYR (RAD ONLY) 10 ML IV (13:18)
[2024-10-04] MEDS: IOPAMIDOL-370 (76%);100ML BOTTLE 75 ML IV (13:19)
[2024-10-04 13:29] LABS: Procalcitonin 0.038 ng/mL (0.0-2.0)
[2024-10-04] MEDS: ACETAMINOPHEN 1,000MG/100ML VIAL 1000 MG IV (13:35)
[2024-10-04] MEDS: MORPHINE 2MG/ML SYRINGE 1 MG IV (13:36)
[2024-10-04] MEDS: KETOROLAC 30MG/ML VIAL 15 MG IV (13:36)
[2024-10-04] MEDS: 0.9 % SODIUM CHLORIDE 1000ML 1,000 ML 999 ML IV (13:36)
--- NOTE | 2024-10-04 14:34 | EXP.HP ---
History of Present Illness *Admission Date: 09/17/24 *Reason for visit:: Abdominal pain *History of present illness: Lizz Villareal is a 84-year-old female who presented with abdominal pain and was admitted for fecal impaction, stercoral colitis. 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 Symptoms included lethargic with right-sided facial droop at that time. Neurological symptoms have since improved since thrombectomy. However, patient states she has not had a bowel movement since discharge 4 days ago. She takes MiraLAX at home which has not alleviated her symptoms. She also states that she took a suppository at home without bowel movement. CT abdomen/pelvis shows moderate constipation with stercoral colitis. Case discussed with ED provider and decision was made to admit patient for fecal impaction and stercoral colitis. [facility] Disclaimer: The information contained in this section may have been updated after the patient was seen, as this information can be updated by other users. Medical History History of stroke Chronic kidney disease Fatigue Urinary tract infection Abnormal electrocardiogram [ECG] [EKG] Essential hypertension Allergic rhinitis Rash and nonspecific skin eruption Surgical History History of total abdominal hysterectomy History of colonoscopy Family History Other Chronic kidney disease Social History Smoking Status: Current every day smoker tobacco type: cigarettes packs per day: 1 second hand exposure: No alcohol intake: never substance use type: denies use current occupational status: retired Travel in the last 8 weeks?: Inside the [place] household members: spouse housing: house current occupational exposures/hazards: No caffeine: Yes Other Medical History Have you received the Flu Vaccine for this season: Yes Have you received the Pneumonia Vaccine: Yes Meds Home Medications and Allergies Home Medications ?Medication ?Instructions ?Recorded ?Confirmed ?Type aspirin 81 mg tablet,delayed 81 mg PO DAILY #30 tabs 12/14/23 10/14/24 Rx release (Adult Low Dose Aspirin) losartan 50 mg tablet 50 mg PO BID #60 tabs 08/19/24 10/14/24 Rx Held on 10/05/24. Instructions: Resume on 10/12/24. Your blood pressures were stable without this medication. Please follow-up with your PCP to discuss restarting this medication, or if your blood pressures are above 140/90 consistently at home. metoprolol succinate 25 mg 25 mg PO DAILY #30 tabs 09/09/24 10/14/24 Rx tablet,extended release 24 hr (Toprol XL) levocetirizine 5 mg tablet (Xyzal) 5 mg PO DAILY #30 tabs 09/12/24 10/14/24 Rx atorvastatin 80 mg tablet 80 mg PO HS 10/04/24 10/14/24 History clopidogrel 75 mg tablet 75 mg PO DAILY 10/04/24 10/14/24 History diclofenac sodium 1 % topical gel 1 ea topical BID 10/04/24 10/14/24 History (Arthritis Pain (diclofenac)) estradiol 0.01% (0.1 mg/gram) 0.5 g vaginal DIRECTED 10/04/24 10/14/24 History vaginal cream (Estrace) flecainide 100 mg tablet 100 mg PO BID 10/04/24 10/14/24 History cefdinir 300 mg capsule 300 mg PO BID 5 days #10 caps 10/07/24 10/14/24 Rx apixaban 2.5 mg tablet (Eliquis) 2.5 mg PO BID #60 tabs 10/14/24 10/14/24 Rx hydrochlorothiazide 25 mg tablet 25 mg PO DAILY #30 tabs 10/14/24 10/14/24 Rx New Prescriptions to Start Prescriptions: cefdinir Dony Moyer Allergies Allergy/AdvReac Type Severity Reaction Status Date / Time shellfish derived AdvReac Intermediate breathing Verified 10/14/24 09:45 difficulties bisoprolol AdvReac rash, Verified 10/14/24 09:45 itching Exam Data for Last 24 hours Vital signs and Labs for Last 24 Hours: Temp Pulse Resp BP Pulse Ox O2 Del Method 97.7 F 66 18 171/68 H 98 Room Air 10/04/24 12:08 10/04/24 13:30 10/04/24 12:08 10/04/24 13:30 10/04/24 13:30 10/04/24 13:30 Laboratory Results - last 24 hr 10/04/24 12:13: WBC 11.9 H, RBC 3.90 L, Hgb 12.3, Hct 37.8, MCV 96.9, MCH 31.5 H, MCHC 32.5, RDW 13.2, Plt Count 222, MPV 9.5, Neut % (Auto) 89.3 H, Lymph % (Auto) 5.5 L, [place] % (Auto) 4.4, Eos % (Auto) 0.3, Baso % (Auto) 0.2, Neut # (Auto) 10.6 H, Lymph # (Auto) 0.7, [place] # (Auto) 0.5, Eos # (Auto) 0.0, Baso # (Auto) 0.0, Sodium 139, Potassium 3.9, Chloride 107, Carbon Dioxide 25, Anion Gap 10.9, BUN 19 H, Creatinine 0.80, Estimated Creat Clear 32, Estimated GFR 68, Est GFR ( Amer) 82, Glucose 141 H, Calcium 9.1, Total Bilirubin 0.9, AST 32, ALT 21, Alkaline Phosphatase 98, Total Protein 7.6, Albumin 4.6, Globulin 3.0, Albumin/Globulin Ratio 1.5, Lipase 35 10/04/24 12:20: Urine Color Yellow, Urine Appearance Clear, Urine pH 5.5, Ur Specific [place] 1.025, Urine Protein Negative, Urine Glucose (UA) Negative, Urine Ketones Negative, Urine Blood Negative, Urine Nitrate Positive A, Urine Bilirubin Negative, Urine Urobilinogen 0.2, Ur Leukocyte Esterase Negative, Urine RBC None, Urine WBC None, Ur Squamous Epith Cells 5-10, Urine Bacteria 4+ 10/04/24 12:51: Magnesium 1.7, Lipase 30, Procalcitonin 0.038 I & O for Last 24 hours: Intake & Output 10/01/24 10/02/24 10/03/24 10/04/24 23:59 23:59 23:59 23:59 Weight 49.895 kg Constitutional Constitutional: no acute distress *Routine HEENT Exam Head: Present normocephalic Eye: Present EOMI and PERRL ENT: Present mucous membranes moist *Routine Neck Exam Neck: Present supple; Absent lymphadenopathy *Routine Respiratory Exam Respiratory: Present CTA bilaterally *Routine Cardiovascular Exam Cardiovascular: Present RRR *Routine Abdominal Exam Abdominal: Present soft, normoactive bowel sounds and tenderness *Routine Rectal Exam Rectal:: deferred *Routine Genitalia Exam Genitalia:: deferred *Routine Extremities Exam Extremities: Absent cyanosis, clubbing or edema *Routine Skin Exam Skin: Present warm; Absent rash *Routine Neurological Exam Neurological: Present alert and oriented X3 Assessment and Plan *Assessment and plan (1) Stercoral colitis: Status: Acute Category: Medical Code(s): K52.89 - Other specified noninfective gastroenteritis and colitis Plan Lizz Villareal is a 84-year-old female who presented with abdominal pain and was admitted for fecal impaction, stercoral colitis. 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 Symptoms included lethargic with right-sided facial droop at that time. Neurological symptoms have since improved since thrombectomy. However, patient states she has not had a bowel movement since discharge 4 days ago. She takes MiraLAX at home which has not alleviated her symptoms. She also states that she took a suppository at home without bowel movement. CT abdomen/pelvis shows moderate constipation with stercoral colitis. Case discussed with ED provider and decision was made to admit patient for fecal impaction and stercoral colitis. #Fecal impaction #Stercoral colitis ? S/p soapsuds enema with multiple bowel movements. ? Significant improvement in abdominal pain. ? Will monitor overnight anticipate discharge in the morning if patient continues to improve. ? IV Zosyn for stroke colitis. ? Follow-up CBC, CMP in the morning. #CVA #MCA thrombosis s/p thrombectomy ? Continue aspirin, Plavix, statin. #A-fib ? Continue home flecainide, metoprolol. Currently rate controlled. #Hypertension ? Hold home losartan, hydrochlorothiazide as pressures normal. Full code DVT prophylaxis: Lovenox 40 mg
[2024-10-04] MEDS: MAGNESIUM SULFATE IN WATER 2 GM/50 ML PIGGYBACK IV (14:44)
[2024-10-04] MEDS: CEFTRIAXONE 1 GM 1 GM in 0.9 % SODIUM CHLORIDE 50 ML IV (14:45)
--- NOTE | 2024-10-04 14:48 | HMH.PHAINT1 ---
Pharmacy Intervention Comments: MEDICATION RECONCILIATION COMPLETED ON PATIENT USING EXTERNAL FILL HISTORY FROM PHARMACY. -GAUDENCIO LIND, CHANGD
--- NOTE | 2024-10-04 14:50 | PC.NURSE ---
Report called to Yared CASSIDY
--- NOTE | 2024-10-04 14:55 | PC.NURSE ---
arrived by stretcher from ED
[2024-10-04] MEDS: LACTATED RINGERS 1000ML 1,000 ML 75 ML IV (15:58)
--- NOTE | 2024-10-04 16:15 | PC.NURSE ---
Niyah enema given per dr. loja.
--- NOTE | 2024-10-04 16:54 | PC.NURSE ---
magnesium iv started on the way to the floor from the er. Iv magnesium given.
[2024-10-04] MEDS: LACTULOSE 20GM/30ML UDC 20 GM PO (20:00)
[2024-10-04] MEDS: PIPERCILLIN/TAZO 3.375 GM in 0.9 % SODIUM CHLORIDE 50 ML IV (22:14)
[2024-10-05] MEDS: PIPERCILLIN/TAZO 3.375 GM in 0.9 % SODIUM CHLORIDE 50 ML IV ×2 (03:06→09:08)
[2024-10-05 04:00] VITALS: BP 110/46; PULSE 58; RESP 14; TEMP 36.8; O2SAT 96; BMI 20.2
[2024-10-05] MEDS: LACTATED RINGERS 1000ML 1,000 ML 75 ML IV (04:23)
--- NOTE | 2024-10-05 04:57 | PC.NURSE ---
Pt disoriented to time occasionally. v/s. pt tolerated iv abx. pt has had numerous bowel movements with no issue. Son at bedside. Plan of care ongoing.
[2024-10-05 07:04] LABS: Basophils % 0.2 % (0.1-2.0); Eosinophils # 0.1 Kmm3 (0.0-0.4); Eosinophils % 0.7 % (0.1-12.0); Hematocrit 30.9 % (37.0-47.0); Immature Granulocytes # 0.04 10^3uL; Immature Granulocytes % 0.4 %; Lymphocytes # 0.9 K/mm3 (0.7-4.5); Lymphocytes % 9.4 % (10-50); Mean Corpuscular HGB Conc 34.3 g/dL (31.8-35.4); Mean Corpuscular Hemoglobin 32.6 pg (27.0-31.2); Mean Corpuscular Volume 95.1 fl (81-99); Mean Platelet Volume 9.6 fl (7.4-10.4); Monocytes # 0.6 K/mm3 (0.1-1.0); Monocytes % 5.9 % (1.7-9.3); Neutrophils # 8.2 K/mm3 (1.8-7.8); Neutrophils % 83.4 % (37.0-80.0); Nucleated Red Blood Cells # 0 10^3/uL; Nucleated Red Blood Cells % 0 %; Platelet Count 179 K/mm3 (142-424); Red Blood Count 3.25 M/mm3 (4.20-5.40); Red Cell Distribution Width-SD 44.6 fL; White Blood Count 9.8 K/mm3 (4.8-10.8)
[2024-10-05 07:14] LABS: Alanine Aminotransferase 14 U/L (12-78); Albumin Level 3.3 g/dl (3.5-5.0); Albumin/Globulin Ratio 1.2 (1.1-1.8); Alkaline Phosphatase 75 U/L (38-126); Anion Gap 8.6 mEq/L (5-15); Aspartate Amino Transferase 23 U/L (14-36); Bilirubin,Total 0.9 mg/dl (0.2-1.3); Blood Urea Nitrogen 21 mg/dl (7-17); Calcium 8.1 mg/dl (8.4-10.2); Carbon Dioxide 26 mmol/L (22.0-30.0); Chloride 108 mmol/L (98-107); Creatinine Clearance Estimated 31 mL/min (50-200); Estimated Glomerular Filt Rate 60 ml/min (>60); GFR (African American) 72 ML/MIN (>60); Globulin 2.7 g/dL (1.3-3.2); Glucose 107 mg/dl (74-100); Magnesium 2.4 mg/dl (1.6-2.3); Potassium 3.6 mmoL/L (3.5-5.1); Sodium 139 mmol/L (136-145)
[2024-10-05 08:00] VITALS: BP 122/49; PULSE 63; RESP 16; TEMP 36.7; O2SAT 96
[2024-10-05 08:47] LABS: Hemoglobin 10.6 g/dL (12.2-16.2)
[2024-10-05] MEDS: METOPROLOL SUCCINATE XL 25MG TABLET 25 MG PO (09:08)
[2024-10-05] MEDS: ASPIRIN EC 81MG TABLET 81 MG PO (09:08)
[2024-10-05] MEDS: LACTULOSE 20GM/30ML UDC 20 GM PO (09:08)
[2024-10-05] MEDS: CLOPIDOGREL 75MG TAB 75 MG PO (09:08)
[2024-10-05] MEDS: hydroCHLOROthiazide 12.5MG CAPSULE 12.5 MG PO (09:08)
[2024-10-05] MEDS: LORATADINE 10MG TABLET 10 MG PO (09:08)
[2024-10-05] MEDS: FLECAINIDE 50MG TABLET 100 MG PO (09:08)
[2024-10-05] MEDS: ENOXAPARIN 40MG/0.4ML SYRINGE 40 MG SUBCUT (09:09)
[2024-10-05] MEDS: KETOROLAC 30MG/ML VIAL 30 MG IV (09:26)
--- NOTE | 2024-10-05 10:21 | XR_ITS ---
PROCEDURE INFORMATION: Exam: XR Abdomen Exam date and time: 10/05/2024 12:11 PM Age: 84 years old Clinical indication: Other: F/u fecal impaction, abdominal pain TECHNIQUE: Imaging protocol: Radiologic exam of the abdomen. Views: Frontal supine view of the abdomen. 1 View. Total images: 3 COMPARISON: CT ABDOMEN PELVIS W CON 10/04/2024 1:18 PM FINDINGS: Gastrointestinal tract: Small amount of stool is present throughout the colon. Bowel gas pattern is nonobstructive and nonspecific. Bones/joints: The lumbar spine demonstrates mild degenerative changes at multiple levels. Soft tissues: Normal IMPRESSION: 1. Small amount of stool is present throughout the colon. 2. Bowel gas pattern is nonobstructive and nonspecific.
--- NOTE | 2024-10-05 12:31 | EXP.DC.SUM ---
General Admission date:: 10/04/24 HPI HPI HPI: Almas Villareal is a 84-year-old female who presented with abdominal pain and was admitted for fecal impaction, stercoral colitis. 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 Symptoms included lethargic with right-sided facial droop at that time. Neurological symptoms have since improved since thrombectomy. However, patient states she has not had a bowel movement since discharge 4 days ago. She takes MiraLAX at home which has not alleviated her symptoms. She also states that she took a suppository at home without bowel movement. CT abdomen/pelvis shows moderate constipation with stercoral colitis. Case discussed with ED provider and decision was made to admit patient for fecal impaction and stercoral colitis. #Fecal impaction #Stercoral colitis ? S/p soapsuds enema with multiple bowel movements. ? Significant improvement in abdominal pain. ? Will monitor overnight anticipate discharge in the morning if patient continues to improve. ? IV Zosyn for stroke colitis. ? Follow-up CBC, CMP in the morning. #CVA #MCA thrombosis s/p thrombectomy ? Continue aspirin, Plavix, statin. #A-fib ? Continue home flecainide, metoprolol. Currently rate controlled. #Hypertension ? Hold home losartan, hydrochlorothiazide as pressures normal. Full code DVT prophylaxis: Lovenox 40 mg Hospital Course Hospital Course Hospital Course: Lizz Villareal is a 84-year-old female who presented with abdominal pain and was admitted for fecal impaction, stercoral colitis. 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 Symptoms included lethargic with right-sided facial droop at that time. Neurological symptoms have since improved since thrombectomy. However, patient states she has not had a bowel movement since discharge 4 days ago. She takes MiraLAX at home which has not alleviated her symptoms. She also states that she took a suppository at home without bowel movement. CT abdomen/pelvis shows moderate constipation with stercoral colitis. Case discussed with ED provider and decision was made to admit patient for fecal impaction and stercoral colitis. #Fecal impaction #Stercoral colitis #UTI ? S/p soapsuds enema with multiple bowel movements. ? Significant improvement in abdominal pain. ? Discharged with cefdinir for colitis and UTI. #CVA #MCA thrombosis s/p thrombectomy ? Continue aspirin, Plavix, statin. #A-fib ? Continue home flecainide, metoprolol. Currently rate controlled. #Hypertension ? Hold home losartan due to low normal pressures, continue hydrochlorothiazide. Exam Data for Last 24 hours Vital signs and Labs for Last 24 Hours: Temp Pulse Resp BP Pulse Ox O2 Del Method 98.0 F 63 16 122/49 L 96 Room Air 10/05/24 08:00 10/05/24 08:00 10/05/24 08:00 10/05/24 08:00 10/05/24 08:00 10/05/24 12:17 Laboratory Results - last 24 hr 10/04/24 12:13: WBC 11.9 H, RBC 3.90 L, Hgb 12.3, Hct 37.8, MCV 96.9, MCH 31.5 H, MCHC 32.5, RDW 13.2, Plt Count 222, MPV 9.5, Neut % (Auto) 89.3 H, Lymph % (Auto) 5.5 L, [place] % (Auto) 4.4, Eos % (Auto) 0.3, Baso % (Auto) 0.2, Neut # (Auto) 10.6 H, Lymph # (Auto) 0.7, [place] # (Auto) 0.5, Eos # (Auto) 0.0, Baso # (Auto) 0.0, Sodium 139, Potassium 3.9, Chloride 107, Carbon Dioxide 25, Anion Gap 10.9, BUN 19 H, Creatinine 0.80, Estimated Creat Clear 32, Estimated GFR 68, Est GFR ( Amer) 82, Glucose 141 H, Calcium 9.1, Total Bilirubin 0.9, AST 32, ALT 21, Alkaline Phosphatase 98, Total Protein 7.6, Albumin 4.6, Globulin 3.0, Albumin/Globulin Ratio 1.5, Lipase 35 10/04/24 12:20: Urine Color Yellow, Urine Appearance Clear, Urine pH 5.5, Ur Specific [place] 1.025, Urine Protein Negative, Urine Glucose (UA) Negative, Urine Ketones Negative, Urine Blood Negative, Urine Nitrate Positive A, Urine Bilirubin Negative, Urine Urobilinogen 0.2, Ur Leukocyte Esterase Negative, Urine RBC None, Urine WBC None, Ur Squamous Epith Cells 5-10, Urine Bacteria 4+ 05/23/25 12:51: Magnesium 1.7, Lipase 30, Procalcitonin 0.038 10/05/24 06:47: WBC 9.8, RBC 3.25 L, Hgb 10.6 L D, Hct 30.9 L, MCV 95.1, MCH 32.6 H, MCHC 34.3, RDW 13.0, Plt Count 179, MPV 9.6, Neut % (Auto) 83.4 H, Lymph % (Auto) 9.4 L, [place] % (Auto) 5.9, Eos % (Auto) 0.7, Baso % (Auto) 0.2, Neut # (Auto) 8.2 H, Lymph # (Auto) 0.9, [place] # (Auto) 0.6, Eos # (Auto) 0.1, Baso # (Auto) 0.0, Sodium 139, Potassium 3.6, Chloride 108 H, Carbon Dioxide 26, Anion Gap 8.6, BUN 21 H, Creatinine 0.90, Estimated Creat Clear 31, Estimated GFR 60, Est GFR ( Amer) 72, Glucose 107 H D, Calcium 8.1 L, Magnesium 2.4 H D, Total Bilirubin 0.9, AST 23 D, ALT 14 D, Alkaline Phosphatase 75, Total Protein 6.0 L, Albumin 3.3 L D, Globulin 2.7, Albumin/Globulin Ratio 1.2 I & O for Last 24 hours: Intake & Output 10/02/24 10/03/24 10/04/24 10/05/24 23:59 23:59 23:59 23:59 Intake Total 60 / 210 500 / 500 Output Total 0 / 0 0 / 0 Balance 60 / 210 500 / 500 Weight 50.377 kg 48.489 kg Microbiology Reports for the Last 24 Hours: Microbiology 10/04/24 12:20 Urine,Clean Catch Urine Culture - Preliminary Gram Negative Rods Results Data Completed and Pending Labs on day of discharge: Labs from last 24 hours 10/05/24 10/04/24 10/04/24 06:47 12:51 12:20 WBC 9.8 RBC 3.25 L Hgb 10.6 L D Hct 30.9 L MCV 95.1 MCH 32.6 H MCHC 34.3 RDW 13.0 Plt Count 179 MPV 9.6 Neut % (Auto) 83.4 H Lymph % (Auto) 9.4 L [place] % (Auto) 5.9 Eos % (Auto) 0.7 Baso % (Auto) 0.2 Neut # (Auto) 8.2 H Lymph # (Auto) 0.9 [place] # (Auto) 0.6 Eos # (Auto) 0.1 Baso # (Auto) 0.0 Sodium 139 Potassium 3.6 Chloride 108 H Carbon Dioxide 26 Anion Gap 8.6 BUN 21 H Creatinine 0.90 Estimated Creat Clear 31 Estimated GFR 60 Est GFR ( Amer) 72 Glucose 107 H D Calcium 8.1 L Magnesium 2.4 H D 1.7 Total Bilirubin 0.9 AST 23 D ALT 14 D Alkaline Phosphatase 75 Total Protein 6.0 L Albumin 3.3 L D Globulin 2.7 Albumin/Globulin Ratio 1.2 Lipase 30 Procalcitonin 0.038 Urine Color Yellow Urine Appearance Clear Urine pH 5.5 Ur Specific [place] 1.025 Urine Protein Negative Urine Glucose (UA) Negative Urine Ketones Negative Urine Blood Negative Urine Nitrate Positive A Urine Bilirubin Negative Urine Urobilinogen 0.2 Ur Leukocyte Esterase Negative Urine RBC None Urine WBC None Ur Squamous Epith Cells 5-10 Urine Bacteria 4+ 10/04/24 12:13 WBC 11.9 H RBC 3.90 L Hgb 12.3 Hct 37.8 MCV 96.9 MCH 31.5 H MCHC 32.5 RDW 13.2 Plt Count 222 MPV 9.5 Neut % (Auto) 89.3 H Lymph % (Auto) 5.5 L [place] % (Auto) 4.4 Eos % (Auto) 0.3 Baso % (Auto) 0.2 Neut # (Auto) 10.6 H Lymph # (Auto) 0.7 [place] # (Auto) 0.5 Eos # (Auto) 0.0 Baso # (Auto) 0.0 Sodium 139 Potassium 3.9 Chloride 107 Carbon Dioxide 25 Anion Gap 10.9 BUN 19 H Creatinine 0.80 Estimated Creat Clear 32 Estimated GFR 68 Est GFR ( Amer) 82 Glucose 141 H Calcium 9.1 Magnesium Total Bilirubin 0.9 AST 32 ALT 21 Alkaline Phosphatase 98 Total Protein 7.6 Albumin 4.6 Globulin 3.0 Albumin/Globulin Ratio 1.5 Lipase 35 Procalcitonin Urine Color Urine Appearance Urine pH Ur Specific [place] Urine Protein Urine Glucose (UA) Urine Ketones Urine Blood Urine Nitrate Urine Bilirubin Urine Urobilinogen Ur Leukocyte Esterase Urine RBC Urine WBC Ur Squamous Epith Cells Urine Bacteria Preliminary micro results at discharge 10/04/24 12:20 Urine Culture - Preliminary Urine,Clean Catch Gram Negative Rods Meds Home Medications and Allergies Home Medications ?Medication ?Instructions ?Recorded ?Confirmed ?Type aspirin 81 mg tablet,delayed 81 mg PO DAILY #30 tabs 12/14/23 10/14/24 Rx release (Adult Low Dose Aspirin) losartan 50 mg tablet 50 mg PO BID #60 tabs 08/19/24 10/14/24 Rx Held on 10/05/24. Instructions: Resume on 10/12/24. Your blood pressures were stable without this medication. Please follow-up with your PCP to discuss restarting this medication, or if your blood pressures are above 140/90 consistently at home. metoprolol succinate 25 mg 25 mg PO DAILY #30 tabs 09/09/24 10/14/24 Rx tablet,extended release 24 hr (Toprol XL) levocetirizine 5 mg tablet (Xyzal) 5 mg PO DAILY #30 tabs 09/12/24 10/14/24 Rx atorvastatin 80 mg tablet 80 mg PO HS 10/04/24 10/14/24 History clopidogrel 75 mg tablet 75 mg PO DAILY 10/04/24 10/14/24 History diclofenac sodium 1 % topical gel 1 ea topical BID 10/04/24 10/14/24 History (Arthritis Pain (diclofenac)) estradiol 0.01% (0.1 mg/gram) 0.5 g vaginal DIRECTED 10/04/24 10/14/24 History vaginal cream (Estrace) flecainide 100 mg tablet 100 mg PO BID 10/04/24 10/14/24 History cefdinir 300 mg capsule 300 mg PO BID 5 days #10 caps 10/07/24 10/14/24 Rx apixaban 2.5 mg tablet (Eliquis) 2.5 mg PO BID #60 tabs 10/14/24 10/14/24 Rx hydrochlorothiazide 25 mg tablet 25 mg PO DAILY #30 tabs 10/14/24 10/14/24 Rx New Prescriptions to Start Prescriptions: cefdinir Dony Moyer Allergies Allergy/AdvReac Type Severity Reaction Status Date / Time shellfish derived AdvReac Intermediate breathing Verified 10/14/24 09:45 difficulties bisoprolol AdvReac rash, Verified 10/14/24 09:45 itching Discharge Plan Disposition Patient Disposition: Home, Self-Care Condition: Fair Follow up Plan Follow up with: Rony Cancino MD [Primary Care Provider, [facility]] - 1 week Referral Note: Call the office and follow up with your primary on Monday. Prescriptions/Medication Reconciliation: New cefdinir 300 mg capsule 300 mg PO BID 5 Days Qty: 10 0RF Continued aspirin [Adult Low Dose Aspirin] 81 mg tablet,delayed release (DR/EC) 81 mg PO DAILY Qty: 30 5RF metoprolol succinate [Toprol XL] 25 mg tablet extended release 24 hr 25 mg PO DAILY Qty: 30 5RF levocetirizine [Xyzal] 5 mg tablet 5 mg PO DAILY Qty: 30 2RF clopidogrel 75 mg tablet 75 mg PO DAILY flecainide 100 mg tablet 100 mg PO BID estradiol [Estrace] 0.01 % (0.1 mg/gram) cream 0.5 g vaginal DIRECTED Rx Instructions: TWICE WEEKLY diclofenac sodium [Arthritis Pain (diclofenac)] 1 % gel 1 ea topical BID atorvastatin 80 mg tablet 80 mg PO HS Held losartan 50 mg tablet 50 mg PO BID Qty: 60 5RF Hold Instructions: Resume on 10/12/24. Your blood pressures were stable without this medication. Please follow-up with your PCP to discuss restarting this medication, or if your blood pressures are above 140/90 consistently at home. No Action Eliquis 2.5 mg tablet 2.5 mg PO BID Qty: 60 2RF hydrochlorothiazide 25 mg tablet 25 mg PO DAILY Qty: 30 5RF Problem Reconciliation Problems Reviewed?: Yes Patient Discharge Instructions Patient Instructions: DI for Colitis, Fecal Impaction Print Language: Lao Providers Primary Care Provider: Rony Cancino Admit Provider: Dony Moyer Attending Provider: Dony Moyer
--- NOTE | 2024-10-06 09:36 | PC.NURSE ---
I forwarded the pts culture results to the hospitalist as she was admitted.
--- NOTE | 2024-10-09 10:08 | SW/DCPLANNER ---
Phoned patient x2. Patients phone has a voicemail box that has not been sat up yet. Jabari Tong
== END 2024-10-05 13:20 | disposition home or self-care (01) ==
LOC: ER 12:21 → 2ND 14:41
PROVIDERS: Physician Assistant; Admitting Provider Student in an Organized Health Care Education/Training Program; Emergency Provider Student in an Organized Health Care Education/Training Program; PCP Family Medicine; Visit Provider Student in an Organized Health Care Education/Training Program
DX: N39.0 Urinary tract infection, site not specified (principal); K52.89 Other specified noninfective gastroenteritis and colitis; I48.91 Unspecified atrial fibrillation; F41.9 Anxiety disorder, unspecified; I12.9 Hypertensive chronic kidney disease with stage 1 through stage 4 chronic kidney disease, or unspecified chronic kidney disease; N18.9 Chronic kidney disease, unspecified; Z86.73 Personal history of transient ischemic attack (TIA), and cerebral infarction without residual deficits; E78.5 Hyperlipidemia, unspecified; Z90.710 Acquired absence of both cervix and uterus; F17.210 Nicotine dependence, cigarettes, uncomplicated; Z88.8 Allergy status to other drugs, medicaments and biological substances; Z79.01 Long term (current) use of anticoagulants; K56.41 Fecal impaction; Z79.02 Long term (current) use of antithrombotics/antiplatelets; Z91.013 Allergy to seafood
CPT/HCPCS: 36415; 74018; 74021; 74177; 80053; 81001; 83690; 83735; 84145; 85025; 87086; 87088; 87186; 99291; G0378; J0131; J0696; J1650; J1885; J2270; J2543; J3475; J7030; J7120; Q9967

== ENCOUNTER 2024-10-24 13:12 | Outpatient (CLI) | payer MEDICARE, BC, SELFPAY ==
--- NOTE | 2024-10-24 13:30 | CT_ITS ---
FINAL REPORT TECHNIQUE: Axial images were performed through the brain. This study was performed with techniques to keep radiation doses as low as reasonably achievable, (ALARA). Individualized dose reduction techniques using automated exposure control or adjustment of mA and/or kV according to the patient''s size were employed. CLINICAL HISTORY: CVA COMPARISON: 09/29/2024 FINDINGS: There is mild atrophy and proportional ventriculomegaly. There is confluent decreased attenuation throughout the deep white matter consistent with chronic ischemia. Multiple small old lacunar infarcts are seen in the basal ganglia. There is no extra-axial fluid or midline shift. There is no evidence of acute hemorrhage or mass. IMPRESSION: Atrophy and diffuse deep white matter changes. Reviewed, Interpreted and Dictated by Quinton Santos MD Transcribed by Brittani Welsh Authenticated and [facility]
--- OUTSIDE RECORDS SUMMARY | 2024-10-24 14:19 | XMS_ITS | Clinical Summary ---
Author Organization [facility] Address [address] [place] [address] Care Team Providers Care Auto Fleet Manager Name Role Phone Ganesh Fonseca MD Primary Care Provider [phone] Allergies Active Allergy Reactions Criticality Noted Date Comments Bisoprolol Rash Low 10/27/2022 Shellfish-Derived Products Anaphylaxis High 10/28/19 23 Medications Carboxymeth-Glyce rin-Polysorb 0.5-1-0.5 % solution 9 Active lisinopril 5 MG tablet 8 Active losartan-hydroCHL OROthiazide (Hyzaar) 50-12.5 MG tablet 8 Active metoprolol succinate XL (Toprol-XL) 25 MG 24 hr tablet 8 Active pravastatin (Pravachol) 10 MG tablet 8 Active triamcinolone (Kenalog) 0.1 % cream 8 Active MAGNESIUM PO 9 Active amLODIPine (Norvasc) 5 MG tablet TAKE 1 TABLET BY MOUTH TWICE DAILY 0 Active flecainide (Tambocor) 100 MG tablet TAKE 1 TABLET BY MOUTH EVERY 12 HOURS 1 Active hydroCHLOROthiazi de (HYDRODiuril) 12.5 MG tablet TAKE 1 TABLET BY MOUTH ONCE DAILY 1 Active Procto-Med HC 2.5 % rectal cream APPLY CREAM RECTALLY TWICE DAILY NEEDED FOR HEMORRHOIDS 1 Active losartan (Cozaar) 50 MG tablet TAKE 1 TABLET BY MOUTH ONCE DAILY 1 Active Plenvu 140 g reconstituted solution 1 Active bisoprolol (Zebeta) 5 MG tablet 1 Active montelukast (Singulair) 10 MG tablet 2 Active estradiol (Estrace) 0.1 MG/GM vaginal cream INSERT 0.5 GRAMS VAGINALLY TWICE A WEEK 4 Active hydroCHLOROthiazi de (HYDRODiuril) 25 MG tablet Take 0.5 tablets (12.5 mg) by mouth 2 (two) times a day. 4 Active pantoprazole (Protonix) 40 MG EC tablet Take 1 tablet (40 mg) by mouth 1 (one) time each day. 4 Active Active Problems Problem Noted Date Diagnosed Date PAF (paroxysmal atrial fibrillation) 03/22/2023 03/22/2023 Allergic rhinitis 03/22/2023 03/22/2023 Aortic dissection, abdominal 03/22/202312/2022 Bladder prolapse, female, acquired 03/22/2023 03/22/2023 Coronary artery disease 03/22/2023 03/22/20 23 Essential hypertension 03/22/2023 3 Superior mesenteric artery stenosis 03/22/2023 03/22/2023 External hemorrhoid 03/22/2023 03/22/2023 Fracture of right ulnar styloid 03/22/2023 03/22/2023 Hyperlipidemia 03/22/2023 03/22/2023 Palpitations 03/22/2023 03/22/2023 Syncope 03/22/2023 03/22/2023 Fracture of right distal radius 03/22/2023 03/22/2023 Smoker 12/21/2022 Exudative age-related macula r degeneration of right eye with active choroidal neovascularization 12/07/2020 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 12/07/2020 After cataract of both eyes not obscuring vision 12/07/2020 Resolved Problems Problem Noted Date Diagnosed Date Resolved Date After cataract not obscuring vision 06/01/2016 02/22/2021 Age-related macular degenera tion, dry, right eye 03/10/2015 02/22/2021 Mixed type age-related cataract, both eyes 03/10/2015 02/22/2021 Exudative age-related macular degeneration 03/10/2015 02/22/2021 Immunizations Immunization Administration Dates Next Due Influenza, high-dose, quadrivalent 02/24,02/05/2022,03/17/2021,2019,03/07/2016 Influenza, seasonal, injectable 02/22/2018 Moderna COVID-19 Vaccine (Re d Cap) 12+ years 07/15/2020,06/17/2020 Pfizer-BioNTech COVID-19 Vac cine (Purple Cap) 12+ 04/29/2021 Social History Tobacco Use Types Packs/Day Years Used Date Smoking Tobacco: Every Day Cigarettes 1 56.4 Started: 1969 Passive Smoke Exposure: Current Smokeless Tobacco: Never Tobacco Cessation:Ready to Q uit: Not Asked; Counseling Given: Not Answered Comments Unknown Sex and Gender Information Value Date Recorded Sex Assigned at Not on file Legal Sex Female 6:56 PM EDT Gender Identity Not on file Sexual Orientation Not on file Plan of Treatment Upcoming Encounters Date Type Department Care Team (Late st Contact Info) Description 11/18/2024 9:30 AM EDT Procedure Visit [facility] [address] [place] [address] Khanh Loo MD [address] [address] Health Maintenance Due Date Last Done Comments [facility]-Bone Density Scan 1939 [facility]-Depression Screening 1939 [facility]-Medicare Annual Wellness (AWV) 1939 [facility]-/Child/Adol SDOH Screenings 1939 [facility]- SDOH Screenings 1957 [facility]-Adult SDOH Screenings 1957 [facility]-DTaP,Tdap,and Td Vaccines (1 - Tdap) 1958 [facility]-Pneumococcal Vaccine: 50+ Years (1 of 2 - PCV) 1958 [facility]-Zoster Vaccines (1 of 2) 1989 [facility]-RSV Vaccine: 60+ Years or (1 - 1-dose 75+ series) 2014 [id number] Vaccine (4 - season) 2024 04/29/2021, 07/15/2020, 06/17/2020 [facility]-Influenza Vaccine Completed 04/16/2024 , 02/24/2023, 02/05/2022, Additional history exists HPV Vaccines Aged Out No longer eligi ble based on patient's age to complete this topic [facility]-HIB Vaccines Aged Out No longer e ligible based on patient's age to complete this topic [facility]-Hepatitis A Vaccines Aged Out No longer eligible based on patient's age to complete this topic [facility]-IPV Vaccines Aged Out No longer e ligible based on patient's age to complete this topic [facility]-Rotavirus Vaccines Aged Out No lo nger eligible based on patient's age to complete this topic Insurance YANELI DUNN [id number] [place] [address] [facility] Care Teams Auto Fleet Manager Relationship Specialty Start Date End Date Ganesh Fonseca MD [address] [place] [address] YANELI Miller [address] PCP - General 12/07/20
== END 2024-10-24 23:59 | disposition home or self-care (01) ==
LOC: RAD 13:12
PROVIDERS: PCP Family Medicine; Visit Provider Physician Assistant
DX: I63.89 Other cerebral infarction (principal); G93.89 Other specified disorders of brain; G31.9 Degenerative disease of nervous system, unspecified
CPT/HCPCS: 70450

== ENCOUNTER 2025-02-13 11:01 | Outpatient (CLI) | payer MEDICARE, BC, SELFPAY ==
--- OUTSIDE RECORDS SUMMARY | 2025-01-22 07:30 | XMS_ITS | Encounter Summary ---
Author Organization [facility] Address [address] [place] [address] Care Team Providers Care Dyed Yarn Operator Name Role Phone Ganesh Fonseca MD Primary Care Provider [phone] Encounter Details Date Type Department Care Team (Late st Contact Info) Description 01/22/2025 7:30 AM EDT Ancillary Procedure [facility] [address] [place] [address] Social History Tobacco Use Types Packs/Day Years Used Date Smoking Tobacco: Every Day Cigarettes 1 56.8 Started: 1970 Passive Smoke Exposure: Current Smokeless Tobacco: Never Comments Unknown Sex and Gender Information Value Date Recorded Sex Assigned at Not on file Legal Sex Female 6:56 PM EDT Gender Identity Not on file Sexual Orientation Not on file documented as of this encounter Plan of Treatment Upcoming Encounters Date Type Department Care Team (Late st Contact Info) Description 03/26/2025 10:45 AM EST Office Visit [facility] [address] [place] [address] Khanh Loo MD [address] [address] documented as of this encounter Procedures Procedure Name Priority Date/Time Associated Diagnosis Comments OCT, RETINA - OU - BOTH EYES Routine 01/22/2025 11:53 AM EDT Exudative age-related macular degeneration of left eye with inactive scar (CMS/HCC) Exudative age-related macular degeneration of right eye with active choroidal neovascularization (CMS/HCC) documented in this encounter Results * OCT, Retina - OU - Both Eyes (01/22/2025 11:53 AM EDT) Anatomical Region Laterality Modality Head Optical Coheren[facility] e Tomography Narrative 01/22/2025 11:53 AM EDT Right Eye Quality was good. Scan locations included subfoveal. Progression has improved. Left Eye Quality was good. Scan locations included subfoveal. Progression has been stable. Khanh Loo MD OPHTH TOMOGRAPHY Final Result documented in this encounter Visit Diagnoses Not on filedocumented in this encounter Additional Health Concerns Assessment Noted Time A fall risk assessment has been complete d for the patient 01/22/2025 10:31 AM EDT A Body Mass Index follow-up plan has been documented for the patient 01/22/2025 11:55 AM EDT documented as of this encounter Care Teams Dyed Yarn Operator Relationship Specialty Start Date End Date Ganesh Fonseca MD [address] [place] [address] PCP - General 12/07/20 documented as of this encounter
--- OUTSIDE RECORDS SUMMARY | 2025-01-22 10:45 | XMS_ITS | Encounter Summary ---
Author Organization [facility] Address [address] [place] [address] Care Team Providers Care World Geography Teacher Name Role Phone Ganesh Fonscea MD Primary Care Provider [phone] Encounter Details Date Type Department Care Team (Latest Contact Info) Description 01/22/2025 10:45 AM EDT Office Visit [facility] [address] [place] [address] Khanh Loo MD [address] [facility] [address] [place] [address] Exudative age-related macular degeneration of left eye with inactive scar (CMS/HCC) (Primary Dx); Exudative age-related macular degeneration of right eye with active choroidal neovascularization (CMS/HCC) Social History Tobacco Use Types Packs/Day Years Used Date Smoking Tobacco: Every Day Cigarettes 1 56.8 Started: 1968 Passive Smoke Exposure: Current Smokeless Tobacco: Never Comments Unknown Sex and Gender Information Value Date Recorded Sex Assigned at Not on file Legal Sex Female 6:56 PM EDT Gender Identity Not on file Sexual Orientation Not on file documented as of this encounter Miscellaneous Notes * Progress Notes - Khanh Loo MD - 01/22/2025 10:45 AM EDT Retina Clinic Note CHIEF COMPLAINT Patient presents for No chief complaint on file. HISTORY OF PRESENT ILLNESS: Lizz Villareal is a 84 y.o. female who presents to the clinic today for: Lab Results Component Value Date HGBA1C 5.3 09/29/2024 HPI 84 y.o. female presents today in clinic for 2 month FU with history of Exudative age-related macular degeneration of right eye with active choroidal neovascularization (CMS/HCC), Exudative age-related macular degeneration of left eye with inactive scar (CMS/HCC). Pt believes her vision has gotten worse since the last visit. Pt notes a flash in right eye (OD) maybe once a day, since last visit. Ptnotes floaters are stable. Pt noted some redness and pain for a day after shot, but it went away. Pt believes the shot hurt because of the placement of the shot, says it was done under the eye. Last REN: right eye (OD) 11/18/24 Last edited by Selena Barker on 01/22/2025 10:30 AM. REVIEW OF SYSTEMS: ROS Positive for: Eyes Negative for: Constitutional, Gastrointestinal, Neurological, Skin, Genitourinary, Musculoskeletal,HENT, Endocrine, Cardiovascular, Respiratory, Psychiatric, Allergic/Imm, Heme/Lymph Last edited by Selena Barker on 01/22/2025 10:11 AM. Negative except for ROS Positive for: Eyes Negative for: Constitutional, Gastrointestinal, Neurological, Skin, Genitourinary, Musculoskeletal,HENT, Endocrine, Cardiovascular, Respiratory, Psychiatric, Allergic/Imm, Heme/Lymph Last edited by Selena Barker on 01/22/2025 10:11 AM. Referring physician: No referring provider defined for this encounter. HISTORICAL INFORMATION: Selected notes from the medical record: CURRENT MEDICATIONS: Current Outpatient Medications (Ophthalmic Drugs) Medication Sig Haxxeodpyot-Aarzscid-Ddthhmtn 0.5-1-0.5 % solution No current facility-administered medications for this visit. (Ophthalmic Drugs) Current Outpatient Medications (Other) Medication Sig ASPIRIN 81 MG chewable tablet Chew 1 tablet 1 time each day. atorvastatin (Lipitor) 80 MG tablet Take 1 tablet by mouth 1 time each day. clopidogrel (Plavix) 75 MG tablet Take 1 tablet by mouth daily. Eliquis 2.5 MG tablet flecainide (Tambocor) 100 MG tablet TAKE 1 TABLET BY MOUTH EVERY 12 HOURS levocetirizine (Xyzal) 5 MG tablet Take 1 tablet by mouth 1 time each day. metoprolol succinate XL (Toprol-XL) 25 MG 24 hr tablet amLODIPine (Norvasc) 5 MG tablet TAKE 1 TABLET BY MOUTH TWICE DAILY bisoprolol (Zebeta) 5 MG tablet estradiol (Estrace) 0.1 MG/GM vaginal cream INSERT 0.5 GRAMS VAGINALLY TWICE A WEEK (Patient not taking: Reported on 01/22/2025) hydroCHLOROthiazide (HYDRODiuril) 12.5 MG tablet TAKE 1 TABLET BY MOUTH ONCE DAILY hydroCHLOROthiazide (HYDRODiuril) 25 MG tablet Take 0.5 tablets (12.5 mg) by mouth 2 (two) times a day. (Patient not taking: Reported on 01/22/2025) levoFLOXacin (Levaquin) 500 MG tablet TAKE ONE TABLET BY MOUTH EVERY DAY FOR 5 DAYS -- FINISH ALL MEDICINE -- lisinopril 5 MG tablet losartan (Cozaar) 50 MG tablet TAKE 1 TABLET BY MOUTH ONCE DAILY losartan-hydroCHLOROthiazide (Hyzaar) 50-12.5 MG tablet MAGNESIUM PO montelukast (Singulair) 10 MG tablet pantoprazole (Protonix) 40 MG EC tablet Take 1 tablet (40 mg) by mouth 1 (one) time each day. (Patient not taking: Reported on 01/22/2025) Plenvu 140 g reconstituted solution pravastatin (Pravachol) 10 MG tablet Procto-Med HC 2.5 % rectal cream APPLY CREAM RECTALLY TWICE DAILY NEEDED FOR HEMORRHOIDS (Patient not taking: Reported on 01/22/2025) triamcinolone (Kenalog) 0.1 % cream (Patient not taking: Reported on 01/22/2025) No current facility-administered medications for this visit. (Other) ALLERGIES Allergies[1] PAST MEDICAL HISTORY Past Medical History[2] Surgical History[3] FAMILY HISTORY Family History[4] SOCIAL HISTORY Social History[5] GENERAL EXAM: General Exam: Neuro: Alert and Oriented x 3, normal mood and affect OPHTHALMIC EXAM: Base Eye Exam Visual Acuity (Snellen - Linear) Right Left Dist sc CF at 3' CF at face Dist ph sc NI NI Tonometry (Tonopen, 10:38 AM) Right Left Pressure 15 12 Pupils Pupils APD Right PERRL None Left PERRL None Neuro/Psych Oriented x3: Yes Mood/Affect: Normal Dilation Both eyes: 1% Tropicamide, 2.5% Phenylephrine @ 10:38 AM IMAGING AND PROCEDURES OCT, Retina - OU - Both Eyes Right Eye Quality was good. Scan locations included subfoveal. Progression has improved. Left Eye Quality was good. Scan locations included subfoveal. Progression has been stable. OCT, Retina - OU - Both Eyes Right Eye Quality was good. Scan locations included subfoveal. Progression has improved. Left Eye Quality was good. Scan locations included subfoveal. Progression has been stable. VISIT DIAGNOSES 1. Exudative age-related macular degeneration of left eye with inactive scar (CMS/HCC) OCT, Retina - OU - Both Eyes 2. Exudative age-related macular degeneration of right eye with active choroidal neovascularization(CMS/HCC) OCT, Retina - OU - Both Eyes ASSESSMENT AND PLAN: Exudative age-related macular degeneration of left eye with inactive scar (CMS/HCC) - no change - Plan: OCT, Retina - OU - Both Eyes, observe Exudative age-related macular degeneration of right eye with active choroidal neovascularization (CMS/HCC) - imporved, observe today - Plan: OCT, Retina - OU - Both Eyes, 2m Explained the diagnoses, plan, and follow up with the patient and they expressed understanding. Patient expressed understanding of the importance of proper follow up care. Follow up in about 2 months (around 03/24/2025). There are no Patient Instructions on file for this visit. Electronically signed by: Khanh Loo MD 01/22/2025 11:53 AM Tobacco Cessation Initiative: Tobacco Use: High Risk (01/22/2025) Patient History Smoking Tobacco Use: Every Day Smokeless Tobacco Use: Never Passive Exposure: Current The patient has been counseled on tobacco cessation: Yes [1] Allergies Allergen Reactions Shellfish-Derived Products Anaphylaxis Bisoprolol Rash [2] Past Medical History: Diagnosis Date Allergic rhinitis due to pollen Hay fever Exudative age-related macular degeneration, bilateral, stage unspecified (CMS/HCC) Age-related macular degeneration, wet, both eyes Exudative age-related macular degeneration, right eye, stage unspecified (CMS/HCC) Age-related macular degeneration, wet, right eye Exudative age-related macular degeneration, right eye, with active choroidal neovascularization (CMS/HCC) Exudative age-related macular degeneration of right eye with active choroidal neovascularization Other secondary cataract, left eye After cataract of left eye not obscuring vision Personal history of other diseases of the circulatory system History of hypertension Personal history of other diseases of the musculoskeletal system and connective tissue History of arthritis Stroke (CMS/HCC) 10/2024 Unspecified macular degeneration AMD (age related macular degeneration) [3] Past Surgical History: Procedure Laterality Date BLADDER SURGERY N/A Bladder Surgery from [facility] CATARACT EXTRACTION N/A Cataract surgery from [facility] HYSTERECTOMY N/A Hysterectomy from [facility] [4] History reviewed. No pertinent family history. [5] Social History Tobacco Use Smoking status: Every Day Current packs/day: 1.00 Average packs/day: 1 pack/day for 56.7 years (56.7 ttl pk-yrs) Types: Cigarettes Start date: 1969 Passive exposure: Current Smokeless tobacco: Never Vaping Use Vaping status: Never Used documented in this encounter Plan of Treatment Upcoming Encounters Date Type Department Care Team (Late st Contact Info) Description 03/26/2025 10:45 AM EST Office Visit [facility] [address] [place] [address] Khanh Loo MD [address] [address] documented as of this encounter [...] Result documented in this encounter Visit Diagnoses Diagnosis Exudative age-related macular degeneration of left eye with inactive scar (CMS/HCC)- Primary Exudative age-related macular degeneration of right eye with active choroidal neovascularization ([facility]/HCC) documented in this encounter Additional Health Concerns Assessment Noted Time A fall risk assessment has been complete d for the patient 01/22/2025 10:31 AM EDT A Body Mass Index follow-up plan has been documented for the patient 01/22/2025 11:55 AM EDT documented as of this encounter Care Teams World Geography Teacher Relationship Specialty Start Date End Date Ganesh Fonseca MD [address] [place] [address] PCP - General 12/07/20 documented as of this encounter
--- OUTSIDE RECORDS SUMMARY | 2025-02-13 11:08 | XMS_ITS | Encounter Summary ---
Author Organization [facility] Address [address] [place] [address] Care Team Providers Care Ditcher Name Role Phone Ganesh Fonseca MD Primary Care Provider [phone] Encounter Details Date Type Department Care Team (Latest Contact Info) Description 01/22/2025 Travel Social History Tobacco Use Types Packs/Day Years [...] Description 03/26/2025 10:45 AM EST Office Visit [facility] [address] [place] [address] Khanh Loo MD [address] [address] documented as of this encounter Visit Diagnoses Not on filedocumented in this encounter Additional Health Concerns Assessment Noted Time A fall risk assessment has been complete d for the patient 01/22/2025 10:31 AM EDT A Body Mass Index follow-up plan has been documented for the patient 01/22/2025 11:55 AM EDT documented as of this encounter Care Teams Ditcher Relationship Specialty Start Date End Date Ganesh Fonseca MD [address] [place] [address] YANELI Miller [address] PCP - General 12/07/20 documented as of this encounter
--- OUTSIDE RECORDS SUMMARY | 2025-02-13 11:08 | XMS_ITS | Encounter Summary ---
Author Organization [facility] Address [address] [place] [address] Care Team Providers Care Director Of Revenue Cycle Management Name Role Phone Rony Cancino MD Primary Care Provider [phone] Reason for Visit * Reason Onset Date Comments Yajaira Score 12/19/2024 Encounter Details Date Type Department Care Team (Late st Contact Info) Description 12/19/2024 Call Center Programs [facility] [address] [place] [phone] Holli Madera, RN Social History Tobacco Use Types Packs/Day Years Used Date Smoking Tobacco: Every Day Cigarettes Passive Smoke Exposure: Current Smokeless Tobacco: Never Comments:Pt states 10 a day Alcohol Use Standard Drinks/Week Comments Never 0 (1 standard drink = 0.6 oz pur e alcohol) AUDIT-C Answer Date Recorded Q1: How often do you have a drink containing alcohol? Never 09/29/2024 Q2: How many drinks containi ng alcohol do you have on a typical day when you are drinking? Patient does not drink Q3: How often do you have si x or more drinks on one occasion? Never 09/29/2024 Abuse Screen Answer Date Recorded Feels Unsafe at Home or Work/School no 09/29/2024 Feels Threatened by Someone no 09/12 Does Anyone Try to Keep You From Having Contact with Others or Doing Things Outside Your Home? no 09/29/2024 Physical Signs of Abuse Present no 09/29/2024 Housing Stability Answer Date Recorded Current Living Arrangements home 09/12 Potentially Unsafe Housing Conditions unable to assess 09/30/2024 Disabilities Answer Date Recorded Difficulty Concentrating, Remembering or Making Decisions no 09/29/2024 Difficulty Managing Errands Independently yes 09/29/2024 Education Answer Date Recorded Help with school or training? Not on file Preferred Language Greek 09/30/2024 PHQ-2 Answer Date Recorded Patient Health Questionnaire-2 Score 1 10/31/2024 Comments Yes Sex and Gender Information Value Date Recorded Sex Assigned at Not on file Legal Sex Female 2:54 AM EDT Gender Identity Not on file Sexual Orientation Not on file documented as of this encounter Miscellaneous Notes * Outreach Note - Holli Madera, RN - 12/19/2024 10:08 AM EDT Images from the original note were not included. Stroke [place] Survey Flowsheet Row [facility] No Unsuccessful attempts Attempt 1 [Attempted to reach patients son Vin. NO answer today. Per strokeclinic notes, communication for patient is thru her son. Patient is djiboutian speaking and has some intermittent aphasia.] HOLLI Huynh - Registered Nurse documented in this encounter Plan of Treatment Not on file documented as of this encounter Visit Diagnoses Not on filedocumented in this encounter Care Teams Director Of Revenue Cycle Management Relationship Specialty Start Date End Date Rony Cancino MD [address] [place] [address] PCP - General Family Medicine 10/01/24 documented as of this encounter
--- OUTSIDE RECORDS SUMMARY | 2025-02-13 11:08 | XMS_ITS | Encounter Summary ---
Author Organization [facility] Address [address] [place] [address] Care Team Providers Care Ranch Rider Name Role Phone Rony Cancino MD Primary Care Provider [phone] Reason for Visit * Reason Onset Date Comments Yajaira Score 12/26/2024 Encounter Details Date Type Department Care Team (Late st Contact Info) Description 12/26/2024 Call Center Programs [facility] [address] [place] [phone] Holli Madera, RN Social History Tobacco [...] or training? Not on file Preferred Language Armenian 09/30/2024 PHQ-2 Answer Date Recorded Patient Health Questionnaire-2 Score 1 10/31/2024 Comments Yes Sex and Gender Information Value Date Recorded Sex Assigned at Not on file Legal Sex Female 2:54 AM EDT Gender Identity Not on file Sexual Orientation Not on file documented as of this encounter Miscellaneous Notes * Outreach Note - Holli Madera RN - 12/26/2024 9:30 AM EDT Images from the original note were not included. Stroke Yajaira Survey Flowsheet Row Responses Facility patient discharged from? [facility] Attempt successful Yes Call start time 09 Person spoke with today (if not patient) and relationship Caregiver [son, Vin Villareal] Call end time 09 Patient location 30 days post discharge if known Home Was the patient readmitted within 30 days of discharge? No Could you live alone without any help from another person? Yes [Son reports that patient is independent with her personal ADL's and cares for her who has chronic illness. Son assists with shopping and a paediatric thoracic physician comes in to help with housecleaning.] Can you do everything that you were doing right before your stroke even if slower and not as much? Yes Are you completely back to the way you were right before your stroke? No [Son states patient still has some difficulty in getting her words out. She is continuing her speech therapy.] Can you walk from one room to another without help from another person? Yes [Son reports that patient shuffles with her gait, but walks independently.] Can the patient sit up in bed without any help? Yes Call Center Mcminn Score 1 Mcminn score call completed Yes Comments Son reports patient still has expressive aphasia and is still in speech therapy. HOLLI Huynh - Registered Nurse documented in this encounter Plan of Treatment Not on file documented as of this encounter Visit Diagnoses Not on filedocumented in this encounter Care Teams Ranch Rider Relationship Specialty Start Date End Date Rony Cancino MD [address] [place] [address] PCP - General Family Medicine 10/01/24 documented as of this encounter
--- OUTSIDE RECORDS SUMMARY | 2025-02-13 11:08 | XMS_ITS | Clinical Summary ---
Author Organization [facility] Address [address] [place] [address] Care Team Providers Care Funeral Director/Embalmer Name Role Phone Rony Cancino MD Primary Care Provider [phone]- [phone] Allergies No known active allergies Medications metoprolol succinate XL (TOPROL-XL) 25 MG 24 hr tablet Take 1 tablet by mouth Daily. Active flecainide (TAMBOCOR) 100 MG tablet Take 1 tablet by mouth 2 (Two) Times a Day. Active atorvastatin (LIPITOR) 80 MG tablet Take 1 tablet by mouth Every Night. 90 tablet 10/01/2024 3:08 PM EDT 10/01/2024 Active aspirin 81 MG chewable tablet Chew 1 tablet Daily. 90 tablet 10/01/2024 3:08 PM EDT 10/02/2024 Active clopidogrel (PLAVIX) 75 MG tablet Take 1 tablet by mouth Daily. 30 tablet 1 10/01/2024 3:08 PM EDT 10/02/2024 Active levocetirizine (XYZAL) 5 MG tablet Take 1 tablet by mouth Daily. 09/12/2024 Active hydroCHLOROthiaz candy 25 MG tablet Take 1 tablet by mouth Daily. 10/14/2024 Active Active Problems Problem Noted Date Diagnosed Date History of stroke 10/31/2024 Atrial fibrillation, chronic 09/29/2024 CAD (coronary artery disease) 09/29/2024 PAD (peripheral artery disease) 09/29/2024 HTN (hypertension) 09/29/2024 HLD (hyperlipidemia) 09/29/2024 AAA (abdominal aortic aneurysm) 09/29/2024 Paroxysmal atrial fibrillation 09/29/2024 Comments Yes Resolved Problems Problem Noted Date Diagnosed Date Resolved Date Acute ischemic left MCA stroke 09/29/2024 10/31/2024 Encounters Date Type Department Care Team Description 12/26/2024 Call Center Programs [facility] [address] [place] [address] Eva Madera, RN 12/19/2024 Call Center Programs [facility] [address] [place] [address] Eva Madera, RN from Last 3 Months Family History Relation Name Status Comments Father Mother Social History Tobacco Use Types Packs/Day Years Used Date Smoking Tobacco: Every Day Cigarettes Passive Smoke Exposure: Current Smokeless Tobacco: Never Tobacco Cessation:Ready to Q uit: No; Counseling Given: No Comments:Pt states 10 a day Alcohol Use [...] or training? Not on file Preferred Language Mongolian 09/30/2024 PHQ-2 Answer Date Recorded Patient Health Questionnaire-2 Score 1 10/31/2024 Comments Yes Sex and Gender Information Value Date Recorded Sex Assigned at Not on file Legal Sex Female 2:54 AM EDT Gender Identity Not on file Sexual Orientation Not on file Last Filed Vital Signs Vital Sign Reading Time Taken Comments Blood Pressure 156/74 10/31/2024 1:25 PM EDT Pulse 58 10/31/2024 1:25 PM EDT Temperature 36.6 C (97.8 F) 10/31/2024 1:25 PM EDT Respiratory Rate 16 10/10/2024 12:33 PM EDT Oxygen Saturation 98% 10/31/2024 1:25 PM EDT Inhaled Oxygen Concentration - - Weight 49.4 kg (109 lb) 10/31/2024 1:25 PM EDT Height 157.5 cm (5' 2.01 ) 10/31/2024 1:25 PM ED T Body Mass Index 19.93 10/31/2024 1:25 PM EDT Plan of Treatment Health Maintenance Due Date Last Done Comments DXA SCAN 1940 Pneumococcal Vaccine 50+ (1 of 2 - PCV) 1958 TDAP/TD VACCINES (1 - Tdap) 1958 ZOSTER VACCINE (1 of 2) 1989 RSV Vaccine - Adults (1 - 1- dose 75+ series) 2014 ANNUAL WELLNESS VISIT 10/01/2024 INFLUENZA VACCINE 12/13/2024 04/16/2024, , 02/05/2022, Additional history exists COVID-19 Vaccine (4 - 2024-2 6 season) 2025 04/29/2021, 07/15/2020, 06/17/2020 LIPID PANEL 09/29/2025 09/29/2024 Procedures Procedure Name Priority Date/Time Associated Diagnosis Comments LIPID PANEL Routine 09/29/2024 6:28 AM EDT from Last 3 Months or Most Recently Relevant to Health Maintenance Results * (ABNORMAL) Lipid Panel (09/29/2024 6:28 AM EDT) Total Cholesterol 168 0 - 200 mg/dL 09/29/2024 7:10 AM EDT [facility] Triglycerides 48 0 - 150 mg/dL 09/29/2024 7:10 AM EDT [facility] HDL Cholesterol 54 40 - 60 mg/dL 09/29/2024 7:10 AM EDT [facility] LDL Cholesterol 104(H) 0 - 100 mg/dL 09/29/2024 7:10 AM EDT [facility] VLDL Cholesterol 10 5 - 40 mg/dL 09/29/2024 7:10 AM EDT [facility] LDL/HDL Ratio 1.93 09/29/2024 7:10 AM EDT [facility] Blood Line / Unknown 09/29/2024 6: 28 AM EDT 09/29/2024 6:37 AM EDT Narrative [facility] - 09/29/2024 7:10 AM EDT Cholesterol Reference Ranges (U.S. Department of Health and Human Services ATP III Classifications) Desirable <200 mg/dL Borderline High 200-239 mg/dL High Risk >240 mg/dL Triglyceride Reference Ranges (U.S. Department of Health and Human Services ATP III Classifications) Normal <150 mg/dL Borderline High 150-199 mg/dL High 200-499 mg/dL Very High >500 mg/dL HDL Reference Ranges (U.S. Department of Health and Human Services ATP III Classifications) Low <40 mg/dl (major risk factor for CHD) High >60 mg/dl ('negative' risk factor for CHD) LDL Reference Ranges (U.S. Department of Health and Human Services ATP III Classifications) Optimal <100 mg/dL Near Optimal 100-129 mg/dL Borderline High 130-159 mg/dL High 160-189 mg/dL Very High >189 mg/dL LDL is calculated using the NIH LDL-C calculation. us May Fer [facility] BLOOD ORDERABLES Fi nal Result [facility]
[address] [place] [address], [place] [phone] from Last 3 Months or Most Recently Relevant to Health Maintenance Insurance [address] [place], [place] [id number] MEDICARE A & B [facility] Advance Directives * CPR (Attempt to Resuscitate) (Latest Code Status on File) Date Activated Date Inactivated Comments 09/30/2024 10:05 PM 10/01/2024 4:20 PM Question Answer Comments Code Status (Patient has no pulse and is not breathing): CPR (Attempt to Resuscitate) Medical Interventions (Patie nt has pulse or is breathing): Full Support Care Teams Funeral Director/Embalmer Relationship Specialty Start Date End Date Rony Cancino MD [facility] [address] [place] [address] PCP - General Family Medicine 10/01/24
--- OUTSIDE RECORDS SUMMARY | 2025-02-13 11:08 | XMS_ITS | Clinical Summary ---
Author Organization [facility] Address [address] [place] [address] Care Team Providers Care Memory Care Program Resident Name Role Phone Ganesh Fonseca MD Primary Care Provider [phone] Allergies Active Allergy Reactions Criticality Noted Date [...] 1 (one) time each day. 4 Active Eliquis 2.5 MG tablet 5 Active levoFLOXacin (Levaquin) 500 MG tablet TAKE ONE TABLET BY MOUTH EVERY DAY FOR 5 DAYS -- FINISH ALL MEDICINE -- 5 Active ASPIRIN 81 MG chewable tablet Chew 1 tablet 1 time each day. 5 Active atorvastatin (Lipitor) 80 MG tablet Take 1 tablet by mouth 1 time each day. 5 Active levocetirizine (Xyzal) 5 MG tablet Take 1 tablet by mouth 1 time each day. 5 Active clopidogrel (Plavix) 75 MG tablet Take 1 tablet by mouth daily. Active Active Problems Problem Noted Date Diagnosed Date PAF (paroxysmal atrial fibrillation) 03/22/2023 03/22/2023 Allergic rhinitis 03/22/2023 03/22/2023 Aortic dissection, abdominal 03/22/202312/2022 Bladder prolapse, female, acquired 03/22/2023 03/22/2023 Coronary artery disease 03/22/2023 03/22/20 Essential hypertension 03/22/2023 3 Superior mesenteric artery stenosis 03/22/2023 03/22/2023 External hemorrhoid 03/22/2023 03/22/2023 Fracture of right ulnar styloid 03/22/2023 03/22/2023 Hyperlipidemia 03/22/2023 03/22/2023 Palpitations 03/22/2023 03/22/2023 Fracture of right distal radius 03/22/2023 03/22/2023 Smoker 12/21/2022 Exudative age-related macula r degeneration of right eye with active choroidal neovascularization 12/07/2020 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 12/07/2020 After cataract of both eyes not obscuring vision 12/07/2020 Resolved Problems Problem Noted Date Diagnosed Date Resolved Date Syncope 03/22/2023 03/22/2023 02/02/2025 After cataract not obscuring vision 06/01/2016 02/22/2021 Age-related macular degenera tion, dry, right eye 03/10/2015 02/22/2021 Mixed type age-related cataract, both eyes 03/10/2015 02/22/2021 Exudative age-related macular degeneration 03/10/2015 02/22/2021 Encounters Date Type Department Care Team Description 01/22/2025 10:45 AM EDT Office Visit [facility] [address] [place] [address] Khanh Loo MD Exudative age-related macular degeneration of left eye with inactive scar (CMS/HCC) (Primary Dx); Exudative age-related macular degeneration of right eye with active choroidal neovascularization (CMS/HCC) 01/22/2025 7:30 AM EDT Ancillary Procedure [facility] [address] [place] [address] 01/22/2025 Travel 11/18/2024 9:30 AM EDT Procedure Visit [facility] [address] [place] [address] Khanh Loo MD Exudative age-related macular degeneration of left eye with inactive scar (CMS/HCC) (Primary Dx); Exudative age-related macular degeneration of right eye with active choroidal neovascularization (CMS/HCC) 11/18/2024 7:30 AM EDT Ancillary Procedure [facility] [address] [place] [address] 11/18/2024 Travel from Last 3 Months Immunizations Immunization Administration Dates Next Due Influenza, [...] Description 03/26/2025 10:45 AM EST Office Visit [facility] [address] [place] [address] Khanh Loo MD [address] [address] Health Maintenance Due Date Last [...] or (1 - 1-dose 75+ series) 2014 [id number] Vaccine (4 - season) 2025 04/29/2021, 07/15/2020, 06/17/2020 UKY-Influenza Vaccine (#1) 01/13/202504/16, 02/24/2023, 02/05/2022, Additional history exists HPV Vaccines [...] on patient's age to complete this topic Procedures Procedure Name Priority Date/Time Associated Diagnosis Comments OCT, RETINA - OU - BOTH EYES Routine 01/22/2025 11:53 AM EDT Exudative age-related macular degeneration of left eye with inactive scar (CMS/HCC) Exudative age-related macular degeneration of right eye with active choroidal neovascularization (CMS/HCC) INTRAVITREAL INJECTION, PHARMACOLOGIC AGENT - OD - RIGHT EYE Routine 11/18/2024 11:12 AM EDT Exudative age-related macular degeneration of right eye with active choroidal neovascularization (CMS/HCC) OCT, RETINA - OU - BOTH EYES Routine 11/18/2024 11:11 AM EDT Exudative age-related macular degeneration of left eye with inactive scar (CMS/HCC) Exudative age-related macular degeneration of right eye with active choroidal neovascularization (CMS/HCC) from Last 3 Months Results * OCT, Retina - OU - Both Eyes (01/22/2025 11:53 AM EDT) Anatomical Region Laterality Modality Head Optical Coherenc e Tomography Narrative 01/22/2025 11:53 AM EDT Right Eye Quality was good. Scan locations included subfoveal. Progression has improved. Left Eye Quality was good. Scan locations included subfoveal. Progression has been stable. Khanh Loo MD OPHTH TOMOGRAPHY Final Result * Intravitreal Injection, Pharmacologic Agent - OD - Right Eye (11/18/2024 11:12 AM EDT) Anatomical Region Laterality Modality Head Other Narrative 11/18/2024 11:12 AM EDT Time Out 11/18/2024. 11:11 AM. Confirmed correct patient, procedure, site, and patient consented. Anesthesia Topical anesthesia was used. Anesthetic medications included Proparacaine 0.5%. Procedure Preparation included 5% betadine to ocular surface. A 30 gauge needle was used. Injection: 1.25 mg bevacizumab 2.25 MG/0.09ML Route: Intravitreal, Site: Right Eye [facility]: [id number], Lot: [id number], Expiration date: 02/07/2025 Post-op Post injection exam found visual acuity of at least counting fingers. The patient tolerated the procedure well. There were no complications. The patient received written and verbal post procedure care education. Post injection medications were not given. us Khanh Loo MD OPHTH CLINIC PROCEDURES Final Result * OCT, Retina - OU - Both Eyes (11/18/2024 11:11 AM EDT) Anatomical Region Laterality Modality Head Optical Coherenc e Tomography Narrative 11/18/2024 11:11 AM EDT Right Eye Quality was good. Scan locations included subfoveal. Progression has worsened. Left Eye Quality was good. Scan locations included subfoveal. Progression has worsened. Khanh Loo MD OPHTH TOMOGRAPHY Final Result from Last [address] [place] [id number] MEDICARE [facility] Care Teams Memory Care Program Resident Relationship Specialty Start Date End Date Ganesh Fonseca MD [address] [place] [address] PCP - General 12/07/20
[2025-02-13 11:24] LABS: Hematocrit 39.8 % (37.0-47.0); Hemoglobin 13.2 g/dL (12.2-16.2); Immature Granulocytes % 0.2 %; Mean Corpuscular HGB Conc 33.2 g/dL (31.8-35.4); Mean Corpuscular Hemoglobin 31.9 pg (27.0-31.2); Mean Corpuscular Volume 96.1 fl (81-99); Nucleated Red Blood Cells % 0 %; Platelet Count 164 K/mm3 (142-424); Red Blood Count 4.14 M/mm3 (4.20-5.40); Red Cell Distribution Width-SD 48.3 fL; White Blood Count 4.8 K/mm3 (4.8-10.8)
[2025-02-13 12:17] LABS: Free T4 (Free Thyroxine) 1.52 ng/dl (0.78-2.19)
[2025-02-13 13:14] LABS: Alanine Aminotransferase 21 U/L (12-78); Albumin Level 4.6 g/dl (3.5-5.0); Alkaline Phosphatase 142 U/L (38-126); Anion Gap 15.9 mEq/L (5-15); Aspartate Amino Transferase 31 U/L (14-36); Bilirubin,Direct 0.4 mg/dl (0.0-0.4); Bilirubin,Indirect 1.0 mg/dL (0.0-0.9); Bilirubin,Total 1.4 mg/dl (0.2-1.3); Bilirubin,Unconjugated 0.9 mg/dL (0.0-1.1); Blood Urea Nitrogen 26 mg/dl (7-17); Calcium 9.6 mg/dl (8.4-10.2); Carbon Dioxide 26 mmol/L (22.0-30.0); Chloride 102 mmol/L (98-107); Cholesterol 197 mg/dl (140-200); Creatinine,Serum 0.90 mg/dl (0.52-1.04); Estimated Glomerular Filt Rate 60 ml/min (>60); GFR (African American) 72 ML/MIN (>60); Glucose 101 mg/dl (74-100); HDL Cholesterol 79 mg/dl (40-60); Magnesium 1.8 mg/dl (1.6-2.3); Potassium 3.9 mmoL/L (3.5-5.1); Sodium 140 mmol/L (136-145); Total Protein,Serum 7.4 g/dl (6.3-8.2); Triglycerides 95 mg/dl (30-150)
[2025-02-13 13:44] LABS: Thyroid Stimulating Hormone 0.70 uIU/mL (0.465-4.68)
[2025-02-13 17:37] LABS: Hemoglobin A1C 5.6 % (4.0-6.0)
== END 2025-02-13 23:59 | disposition home or self-care (01) ==
LOC: LAB 11:02
PROVIDERS: PCP Family Medicine; Visit Provider Nurse Practitioner
DX: I25.10 Atherosclerotic heart disease of native coronary artery without angina pectoris (principal); I10 Essential (primary) hypertension; E78.5 Hyperlipidemia, unspecified; I48.0 Paroxysmal atrial fibrillation; Z13.1 Encounter for screening for diabetes mellitus
CPT/HCPCS: 36415; 80048; 80061; 80076; 83036; 83735; 84439; 84443; 85025